=== PATIENT | female | born 1995 | race Caucasian/White ===

== ENCOUNTER 2021-03-09 16:56 | Emergency (ER) | payer OTHER, SELFPAY ==
--- NOTE | 2021-03-09 16:59 | ED.SKABFB ---
HPI - Skin/Abscess/Foreign Bdy General Chief complaint: Skin/Abscess/Foreign Body Stated complaint: bites on arms and legs Time Seen by Provider: 03/09/21 17:00 Source: patient and RN notes reviewed History of Present Illness HPI narrative: Patient is a 26-year-old female who presents the urgent care with complaints of bites on bilateral arms and legs. Patient states that she is rehabbing a house and noticed that she was the only one getting the bites approximately 5 days ago. Patient states that they resolved quickly and she has had pest control to the home to spray. States that they did not find any bedbugs. No other acute complaints. No acute distress noted. Patient read the plan of care. Some parts of this dictation were generated by voice recognition software and may contain typographical and/or grammatical inaccuracies. Related Data Allergies Allergy/AdvReac Type Severity Reaction Status Date / Time No Known Allergies Allergy Verified 03/09/21 17:13 Review of Systems Review of Systems: CONSTITUTIONAL: Denies fever, chills, or sweats. EYES: Denies visual changes, redness, or discharge. ENT: Denies rhinorrhea, congestion, sore throat, or otalgia. CARDIOVASCULAR: Denies chest pain, palpitations, or edema. RESPIRATORY: Denies cough or dyspnea. GASTROINTESTINAL: Denies abdominal pain, nausea, vomiting, or diarrhea. GENITOURINARY: Denies dysuria or hematuria. SKIN: Reports of bug bites to bilateral arms MUSCULOSKELETAL: Denies back pain, joint pain, or myalgia. NEUROLOGIC: Denies headache, numbness, or weakness. All other systems reviewed are negative, except as documented in HPI. PMFSH Comments At the time of my signature, I reviewed and agree with the nursing past medical, surgical, social, and family history. There is no relevant family history pertinent to the patient complaint. Exam Narrative: GENERAL: This is a well-nourished, well-developed patient, in no apparent distress. HEAD: normocephalic, atraumatic. EYES: PERRL. Sclera clear/white. Vision is grossly intact. EARS: External ears normal NOSE: External nose normal with no obvious nasal discharge, nares without redness, no rhinorrhea. THROAT: Mucous membranes moist NECK: Neck supple, non-tender without lymphadenopathy, masses or thyromegaly. CARDIOVASCULAR: Regular rate and rhythm without murmurs, gallops, or rubs. RESPIRATORY: Clear to auscultation. Breath sounds equal bilaterally. No wheezes, rales, or rhonchi. SKIN: Very faint pruritic papular regions to the bilateral forearms; warm, intact with no suspicious lesions or rash, good texture and turgor. NEURO: awake, alert, and oriented to person, place and time. There were no obvious focal neurologic abnormalities. EXTREMITIES: No clubbing, cyanosis, or edema. Course Vital Signs Vital signs: Vital Signs Temperature 98.0 F 03/09/21 17:00 Pulse Rate 92 03/09/21 17:00 Respiratory Rate 20 03/09/21 17:00 Blood Pressure 124/69 03/09/21 17:00 Pulse Oximetry 100 03/09/21 17:00 Temperature 98.0 F 03/09/21 17:00 Pulse Rate 92 03/09/21 17:00 Respiratory Rate 20 03/09/21 17:00 Blood Pressure 124/69 03/09/21 17:00 Pulse Oximetry 100 03/09/21 17:00 Reviewed MDM - Skin/Abscess/Foreign Bdy MDM Narrative Medical decision making narrative: Advised the patient to continue using Benadryl as needed for itch. Continue the pest control as directed from the company. May also try using [id number] bug bombs. Use the prescription cream to the affected areas. Follow-up with your PCP within 2 to 5 days or for worsening symptoms or failure to improve. Differential Diagnosis Differential diagnosis: Likely urticaria, herpes zoster, allergic reaction to drug, cellulitis, impetigo and contact dermatitis Critical Care Time Critical Care Time Critical Care Time: No Discharge Plan Discharge Clinical Impression: Insect bites Qualifiers: Encounter type: initial encounter Site of insect bi
[2021-03-09 17:00] VITALS: BP 124/69; PULSE 92; RESP 20; TEMP 36.7; O2SAT 100
== END 2021-03-09 17:15 | disposition home or self-care (01) ==
PROVIDERS: Emergency Provider Nurse Practitioner Family
DX: S50.862A Insect bite (nonvenomous) of left forearm, initial encounter (principal); S50.861A Insect bite (nonvenomous) of right forearm, initial encounter; W57.XXXA Bitten or stung by nonvenomous insect and other nonvenomous arthropods, initial encounter
CPT/HCPCS: 99213; G0463

== ENCOUNTER 2021-06-11 14:58 | Emergency (ER) | payer OTHER, SELFPAY ==
[2021-06-11 15:08] VITALS: BP 137/76; PULSE 95; RESP 16; TEMP 37.1; O2SAT 98
--- NOTE | 2021-06-11 16:00 | ED.URI ---
HPI - URI/Sore Throat General Chief Complaint: Upper Respiratory Infection Stated Complaint: sore throat,runny nose Time Seen by Provider: 06/11/21 15:41 Source: patient and RN notes reviewed Mode of arrival: ambulatory Limitations: no limitations History of Present Illness HPI Narrative: Patient presents today with a 10-day history of sore throat, rhinorrhea, congestion, occasional cough, fatigue.Currently rates her sore throat 4/10 and has tried no [id number] treatment prior to arrival. Currently 17 weeks . She had a negative COVID-19 test Today. MD elicited complaint: sore throat, rhinorrhea and nasal congestion Related Data Home Medications Medication Instructions Recorded Confirmed levothyroxine 75 mcg PO DAILY 06/11/21 06/11/21 [id number] tablet PO 06/11/21 [] sertraline 50 mg PO DAILY 06/11/21 06/11/21 Allergies Allergy/AdvReac Type Severity Reaction Status Date / Time Penicillins Allergy Unknown Verified 06/11/21 16:09 Review of Systems Review of Systems: CONSTITUTIONAL: Denies body aches, fever, chills, or sweats. EYES: Denies visual changes, redness, or discharge. ENT: Denies otalgia. +Rhinorrhea, congestion, sore throat CARDIOVASCULAR: Denies chest pain, palpitations, or edema. RESPIRATORY: Denies dyspnea.+Occasional cough GASTROINTESTINAL: Denies abdominal pain, nausea, vomiting, or diarrhea. GENITOURINARY: Denies dysuria or hematuria. SKIN: Denies rash, itching, or wounds. MUSCULOSKELETAL: Denies back pain, joint pain, or myalgia. NEUROLOGIC: Denies headache, numbness, tingling, or weakness. PSYCH: Denies depression or anxiety. [facility] Past Medical History Medical History (Updated 06/11/21 @ 16:07 by Ericka Shankar, HELICOPTER MECHANIC, ) Hypothyroidism OCD (obsessive compulsive disorder) Comments At time of signature, I have reviewed and agree with nursing past medical, surgical, social and family history unless otherwise noted. Please see nursing chart for further information. There is no relevant family history pertinent to the presenting complaint Exam Narrative: GENERAL: Well-appearing, well-nourished, and in no acute distress. HEAD: Normocephalic, atraumatic. EYES: EOMI. No redness or drainage. Conjunctivae normal. ENT: Mucous membranes pink and moist. Nares clear. No rhinorrhea. TMs normal bilaterally. Throat normal. Uvula midline. NECK: Normal AROM. Supple. No lymphadenopathy. CHEST: No respiratory distress. Clear to auscultation. HEART: Regular rate and rhythm. No murmur appreciated. Normal peripheral pulses. EXTREMITIES: Normal range of motion. No edema. SKIN: Warm, dry, no rash. Capillary refill normal. Normal skin turgor. NEURO: No focal deficits. Alert and oriented x3. Gait steady. PSYCH: Normal affect. No signs of depression or anxiety. Course Vital Signs Vital signs: Vital Signs Temperature 98.7 F 06/11/21 15:08 Pulse Rate 95 06/11/21 15:08 Respiratory Rate 16 06/11/21 15:08 Blood Pressure 137/76 06/11/21 15:08 Pulse Oximetry 98 06/11/21 15:08 Temperature 98.7 F 06/11/21 15:08 Pulse Rate 95 06/11/21 15:08 Respiratory Rate 16 06/11/21 15:08 Blood Pressure 137/76 06/11/21 15:08 Pulse Oximetry 98 06/11/21 15:08 Reviewed. Pt has been instructed to follow up with her PCP regarding her elevated blood pressure today. MDM - URI/Sore Throat Differential Diagnosis Differential diagnosis: Likely upper respiratory infection, sinusitis, viral infection, pharyngitis and other (Strep throat) Lab Data Attestation: I reviewed the patient's lab results. Labs: Strep Screen Presumptive Negative *(Reference Range: Negative)* Critical Care Time Critical Care Time Critical Care Time: No Discharge Plan Discharge Clinical Impression: Sinusitis Qualifiers: Sinusitis location: unspecified location Chronicity: acute Recurrence: non-recurrent Qualif
== END 2021-06-11 16:15 | disposition home or self-care (01) ==
PROVIDERS: Emergency Provider Nurse Practitioner
DX: J01.90 Acute sinusitis, unspecified (principal); E03.9 Hypothyroidism, unspecified; F42.9 Obsessive-compulsive disorder, unspecified
CPT/HCPCS: 87081; 87880; 99213; G0463

== ENCOUNTER 2021-10-04 09:47 | Outpatient (RCR) | payer OTHER, SELFPAY ==
[2021-10-04 10:45] VITALS: BP 123/82; PULSE 69
== END 2021-12-23 09:30 | disposition home or self-care (01) ==
LOC: ANHOBOP 09:47
PROVIDERS: Visit Provider Obstetrics & Gynecology Gynecology
DX: O99.891 Other specified diseases and conditions complicating pregnancy (principal); W19.XXXA Unspecified fall, initial encounter; Z3A.33 33 weeks gestation of pregnancy
CPT/HCPCS: 59025

== ENCOUNTER 2021-10-12 11:02 | Outpatient (CLI) | payer OTHER, SELFPAY ==
[2021-10-12 11:37] VITALS: BP 117/75; PULSE 85
[2021-10-12 11:58] VITALS: BP 117/75; PULSE 87
== END 2021-10-12 12:10 | disposition home or self-care (01) ==
LOC: ANHOBOP 11:07 → ANHOBPP 10-17 06:15
PROVIDERS: Visit Provider Obstetrics & Gynecology Gynecology
DX: O41.8X90 Other specified disorders of amniotic fluid and membranes, unspecified trimester, not applicable or unspecified (principal); Z3A.00 Weeks of gestation of pregnancy not specified
CPT/HCPCS: 59025; 84112; 99199

== ENCOUNTER 2021-10-22 11:02 | Outpatient (CLI) | payer OTHER, SELFPAY ==
[2021-10-22] VITALS (8 sets, daily range): BP systolic 114–121; BP diastolic 71–80; PULSE 73–87; RESP 18; TEMP 36.8; BMI 33.3
--- NOTE | 2021-10-22 11:02 | PC.NURSE ---
Dr. Hopson was informed of pt's symptoms after the pt called in with c/o intermittent headache x's 4 days with increased swelling in feet. Orders for labs and HIP evaluation received.
[2021-10-22 11:56] LABS: Basophils Percent Auto 0.3 % (0.2-1.2); Eosinophils Absolute Auto 0.3 K/mm3 (0-0.3); Eosinophils Percent Auto 2.5 % (0-4.4); Hematocrit 33.3 % (37.0-47.0); Hemoglobin 11.4 g/dL (12.0-15.0); Immature Granulocyte Absolute 0.05 K/mm3 (0.00-0.031); Immature Granulocyte Percent A 0.4 % (0-0.5); Lymphocytes Absolute Auto 1.45 K/mm3 (0.9-3.2); Mean Corpuscular HGB Conc 34.2 g/dl (32-36); Mean Corpuscular Hemoglobin 31.8 pg (26-34); Mean Platelet Volume 9.9 fl (7.4-10.4); Monocytes Absolute Auto 0.7 K/mm3 (0.1-0.6); Monocytes Percent Auto 6.1 % (2.6-8.5); Neutrophils Absolute Auto 9.5 K/mm3 (1.3-6.7); Neutrophils Percent Auto 78.7 % (45.5-73.1); Platelet Count Result 221 k/mm3 (150-375); Red Blood Count 3.58 M/mm3 (4.2-5.4); Red Cell Distribution Width 14.2 % (11.5-14.5)
[2021-10-22 12:08] LABS: Alanine Aminotransferase 13 U/L (6-35); Albumin Level 3.2 g/dL (3.5-5.1); Alkaline Phosphatase 145 U/L (38-126); Anion Gap 5 mmol/L (8-16); Aspartate Amino Transferase 23 U/L (14-36); Bilirubin,Total 0.1 mg/dL (0.2-1.3); Blood Urea Nitrogen 6 mg/dL (7-17); Calcium 8.6 mg/dL (8.4-10.2); Carbon Dioxide 23 mmol/L (22-30); Chloride 105 mmol/L (98-107); Estimated CRCL calculation 120 ml/min; Estimated Glomerular Filt Rate > 60; Glucose 74 mg/dL (65-110); Potassium 3.8 mmol/L (3.4-5.0); Sodium 133 mmol/L (137-145); Uric Acid 4.9 mg/dL (2.5-7.5)
[2021-10-22 12:14] LABS: Creatinine Urine 95.4 mg/dL; Total Protein Urine Random 10 mg/dL
[2021-10-22 12:17] LABS: Appearance Urine Slightly Cloudy (Clear); Bilirubin Urine Negative (Negative); Color Urine Yellow (Yellow); Glucose Urine UA Negative (Negative); Ketones Urine Negative (Negative); Leukocyte Esterase Ur Trace LEU/UL (Negative); Nitrate Urine Negative (Negative); Protein Urine Negative (Negative); Specific Grav Ur 1.015 (1.001-1.035); Urobilinogen Urine 0.2 mg/dL (<2.0)
[2021-10-22 12:19] LABS: Add Urine Microscopic? YES; Blood Urine Trace-Intact (Negative)
[2021-10-22 12:21] LABS: Mucus Urine Rare /lpf; Squamous Epithelial Cell Urine Few /hpf (Few); WBC Urine 0-3 /hpf
--- NOTE | 2021-10-22 12:35 | PC.NURSE ---
Dr. Hopson informed of labs, BP's, and reactive NST. Orders for discharge received.
--- NOTE | 2021-10-22 15:43 | PM.OBTRLD ---
OB - Triage/Final Diagnosis Visit Information Comments/Additional reasons for admission: I have assessed the risk for this patient, Fabi Jones, and determined that she would benefit from observation care. Evaluation Laboratory results: Laboratory Tests 10/22/21 10/22/21 10/22/21 11:44 11:44 11:44 WBC 12.0 H RBC 3.58 L Hgb 11.4 L Hct 33.3 L MCV 93.0 MCH 31.8 MCHC 34.2 RDW 14.2 Plt Count 221 MPV 9.9 Immature Gran % (Auto) 0.4 Neut % (Auto) 78.7 H Lymph % (Auto) 12.0 L [place] % (Auto) 6.1 Eos % (Auto) 2.5 Baso % (Auto) 0.3 Lymph # (Auto) 1.45 [place] # (Auto) 0.7 H Eos # (Auto) 0.3 Baso # (Auto) 0.0 Abs Immat Gran (auto) 0.05 H Absolute Neuts (auto) 9.5 H Absolute Nucleated RBC 0.0 Nucleated RBC % 0.0 Sodium 133 L Potassium 3.8 Chloride 105 Carbon Dioxide 23 Anion Gap 5 L BUN 6 L Creatinine 0.60 L Estim Creat Clear Calc 120 Estimated GFR > 60 Glucose 74 Uric Acid 4.9 Calcium 8.6 Total Bilirubin 0.1 L AST 23 ALT 13 Alkaline Phosphatase 145 H Total Protein 7.0 Albumin 3.2 L Urine Color Urine Appearance Urine pH Ur Specific [place] Urine Protein Urine Glucose (UA) Urine Ketones Ur Blood (Man) Urine Nitrate Urine Bilirubin Urine Urobilinogen Leukocyte Esterase Rfl Urine RBC Urine WBC Ur Squamous Epith Cells Urine Mucus U Random Total Protein 10 Urine Creatinine 95.4 Protein/Creat Ratio 2 0.10 10/22/21 11:44 WBC RBC Hgb Hct MCV MCH MCHC RDW Plt Count MPV Immature Gran % (Auto) Neut % (Auto) Lymph % (Auto) [place] % (Auto) Eos % (Auto) Baso % (Auto) Lymph # (Auto) [place] # (Auto) Eos # (Auto) Baso # (Auto) Abs Immat Gran (auto) Absolute Neuts (auto) Absolute Nucleated RBC Nucleated RBC % Sodium Potassium Chloride Carbon Dioxide Anion Gap BUN Creatinine Estim Creat Clear Calc Estimated GFR Glucose Uric Acid Calcium Total Bilirubin AST ALT Alkaline Phosphatase Total Protein Albumin Urine Color Yellow Urine Appearance Slightly cloudy Urine pH 7.0 Ur Specific [place] 1.015 Urine Protein Negative Urine Glucose (UA) Negative Urine Ketones Negative Ur Blood (Man) Trace-intact Urine Nitrate Negative Urine Bilirubin Negative Urine Urobilinogen 0.2 Leukocyte Esterase Rfl Trace H Urine RBC 6-10 H Urine WBC 0-3 Ur Squamous Epith Cells Few Urine Mucus Rare U Random Total Protein Urine Creatinine Protein/Creat Ratio 2 Vital signs: Vital Signs - 24 hr 10/22/21 11:35 10/22/21 11:36 10/22/21 11:46 Temperature 98.3 F Pulse Rate 87 87 77 Respiratory Rate 18 Blood Pressure 115/80 121/71 Blood Pressure [Left Arm] 115/80 10/22/21 11:51 10/22/21 11:52 10/22/21 12:01 Temperature Pulse Rate 77 85 73 Respiratory Rate Blood Pressure 119/80 114/76 Blood Pressure [Left Arm] 121/71 10/22/21 12:16 10/22/21 12:31 Temperature Pulse Rate 80 76 Respiratory Rate Blood Pressure 117/77 114/76 Blood Pressure [Left Arm] Final Diagnosis (1) Swelling of ankle: Code(s): M25.473 - Effusion, unspecified ankle Status: Acute
== END 2021-10-22 12:45 | disposition home or self-care (01) ==
LOC: ANHOBOP 11:09 → ANHOBPP 10-30 07:31
PROVIDERS: Obstetrics & Gynecology; Visit Provider Obstetrics & Gynecology Gynecology
DX: R51.9 Headache, unspecified (principal); O13.9 Gestational [pregnancy-induced] hypertension without significant proteinuria, unspecified trimester; Z3A.00 Weeks of gestation of pregnancy not specified
CPT/HCPCS: 36415; 59025; 80053; 81001; 82570; 84156; 84550; 85025; 99199

== ENCOUNTER 2021-11-07 12:23 | Outpatient (CLI) | payer OTHER, SELFPAY ==
[2021-11-07 12:41] VITALS: TEMP 36.6
[2021-11-07 13:07] VITALS: BP 114/77; PULSE 100
--- NOTE | 2021-11-07 13:07 | PC.NURSE ---
Dr. Vargas returned page and informed of pt's arrival with c/o wet spot in underwear around 1100 this morning. Pt states she did just finish her vaginal treatment for BV last night. MD informed ROM plus was negative and NST is reactive. OK to discharge to home.
== END 2021-11-07 13:12 | disposition home or self-care (01) ==
LOC: ANHOBOP 13:20
PROVIDERS: Visit Provider Obstetrics & Gynecology Gynecology
DX: O42.90 Premature rupture of membranes, unspecified as to length of time between rupture and onset of labor, unspecified weeks of gestation (principal); Z3A.00 Weeks of gestation of pregnancy not specified
CPT/HCPCS: 59025; 84112

== ENCOUNTER 2021-11-13 16:58 | Inpatient (IN) | payer OTHER, SELFPAY ==
[2021-11-13] VITALS (35 sets, daily range): BP systolic 108–148; BP diastolic 58–109; PULSE 69–107; TEMP 36.7–36.8; O2SAT 97–100; BMI 33.0
--- NOTE | 2021-11-13 17:22 | LDADM ---
This patient, Fabi Jones, was admitted to Labor/Delivery/Recovery 109 on 11/13/21 at 16:58. Plans for labor, pain management and were discussed with patient. Patient/family oriented to hospital policies and general routines including ID bracelet, bed and alarms, visiting hours, pain management, procedures, bathroom and other care routines, personal items, smoking policy, room service/diet and guest tray routines, security routines, and visiting hours. Patient/Family are encouraged to report perceived risks to care and to ask questions if they do not understand what they are told or what they should do. See OBIX for further documentation.
[2021-11-13 17:36] LABS: Basophils Absolute Auto 0.1 K/mm3 (0.0-0.1); Basophils Percent Auto 0.4 % (0.2-1.2); Eosinophils Absolute Auto 0.2 K/mm3 (0-0.3); Hematocrit 36.5 % (37.0-47.0); Immature Granulocyte Absolute 0.04 K/mm3 (0.00-0.031); Immature Granulocyte Percent A 0.3 % (0-0.5); Lymphocytes Absolute Auto 1.65 K/mm3 (0.9-3.2); Mean Corpuscular HGB Conc 32.9 g/dl (32-36); Mean Corpuscular Hemoglobin 30.9 pg (26-34); Mean Corpuscular Volume 94.1 fl (80-100); Monocytes Absolute Auto 0.6 K/mm3 (0.1-0.6); Neutrophils Absolute Auto 9.2 K/mm3 (1.3-6.7); Neutrophils Percent Auto 78.3 % (45.5-73.1); Platelet Count Result 238 k/mm3 (150-375); Red Blood Count 3.88 M/mm3 (4.2-5.4); Red Cell Distribution Width 14.3 % (11.5-14.5); White Blood Count 11.8 K/mm3 (4.5-10.0)
--- NOTE | 2021-11-13 17:37 | WPDANESEPP ---
Anes - Eval Pre Procedure Date/Time: 11/13/21 17:37 Pre Op Diagnosis: IOL Patient Data Age: 26 Gender: F Height: 1.57 m Weight: 82 kg Last Vital Signs Pulse 78 11/13/21 17:31 BP 118/75 11/13/21 17:31 O2 Del Method Room Air 11/13/21 17:21 Allergies Allergy/AdvReac Type Severity Reaction Status Date / Time Penicillins Allergy Hives Verified 10/23/21 15:26 Home Medications Medication Instructions Recorded Confirmed Type levothyroxine 75 mcg capsule 75 mcg PO DAILY 06/11/21 11/13/21 History [id number] 1 mg 1 tablet PO DAILY 06/11/21 11/13/21 History tablet sertraline 50 mg tablet 50 mg PO DAILY 06/11/21 11/13/21 History ergocalciferol (vitamin D2) 1,250 50,000 unit PO WEEKLY 10/04/21 11/13/21 History mcg (50,000 unit) capsule (Vitamin D2) ferrous sulfate 325 mg (65 mg 325 mg PO DAILY 10/04/21 11/13/21 History iron) tablet Laboratory Tests 11/13/21 11/13/21 17:18 17:18 WBC Pending RBC Pending Hgb Pending Hct Pending MCV Pending MCH Pending MCHC Pending RDW Pending Plt Count Pending MPV Pending Immature Gran % (Auto) Pending Neut % (Auto) Pending Lymph % (Auto) Pending [place] % (Auto) Pending Eos % (Auto) Pending Baso % (Auto) Pending Lymph # (Auto) Pending [place] # (Auto) Pending Eos # (Auto) Pending Baso # (Auto) Pending Abs Immat Gran (auto) Pending Absolute Neuts (auto) Pending Absolute Nucleated RBC Pending Nucleated RBC % Pending RPR Pending Patient hx anesthesia problems: none Family hx anesthesia problems: none Results Review: All pre-operative results and documents have been reviewed as part of the pre-operative evaluation. [facility] Past Medical History Medical History Hypothyroidism OCD (obsessive compulsive disorder) Family History Family History Father Skin cancer Hypothyroidism Hypertension Grandparent Leukemia Grandparent Liver cancer Grandparent Hypothyroidism Social History Social History Smoking status: Never smoker Substance use: never Spiritual care concerns: No Exam Day of Procedure 11/13/21 17:37
[2021-11-13] MEDS: DINOPROSTONE 10 MG VAG INSERT VAGINAL (17:53)
[2021-11-13] MEDS: fentaNYL CITRATE INJ (*CRX) 100 MCG/2 ML VIAL 50 MCG IV PUSH (21:23)
[2021-11-13] MEDS: LACTATED RINGERS 1,000 ML 125 ML IV CONT (23:23)
[2021-11-14] VITALS (18 sets, daily range): BP systolic 80–153; BP diastolic 35–103; PULSE 60–87; RESP 16–18; TEMP 36.6–37.3; O2SAT 97–99
[2021-11-14] MEDS: OXYTOCIN 30 UNITS/NS 500 ML 30 UNITS/500 ML BAG 999 UNITS IV CONT (00:01)
--- NOTE | 2021-11-14 00:11 | WPDOBADMIT ---
Obstetrics - Admit Note Admission Note: record reviewed. No pertinent additions to the history and/or any subsequent changes in the physical findings that are not consistent with the expected course of the were found. Additions to the history and/or subsequent changes in the physical findings follow. None.
--- NOTE | 2021-11-14 00:11 | WPDHPUPDATE1 ---
History and Physical Update Update Date/Time: 11/14/21 00:11 History and Physical has been reviewed, including an updated exam of the patient. There are NO changes in the patient's condition. Risks, benefits, and alternatives have been discussed and questions answered. Patient agrees to proceed with procedure.
--- NOTE | 2021-11-14 00:12 | P.PCNOB_ITS ---
OB - Delivery Note Procedure Induction method: Per Cervidil Protocol Delivery monitor: External FHT and External Uterine Route of delivery: Episiotomy description: None Laceration Description: None Specimen: No Quantitative Blood Loss (ml): 500 Anesthesia type: Epidural Disposition: Floor Complications: precipitous delivery Narrative: Patient was set up for epidural and after his current health the need to push. Baby was found to be at the antritis and delivered precipitously. After delivery of the baby and placenta the uterus was well contracted and there were no lacerations or tears. Baby was sent to the nursery but was doing well post delivery. Patient was doing well post delivery. [place] Baby Date of : 11/13/21 Weeks of gestation at delivery: 39 Infant gender: Female Weight (pounds): 5 Weight (ounces): 3 presentation: vertex
[2021-11-14] MEDS: OXYTOCIN 30 UNITS/NS 500 ML 30 UNITS/500 ML BAG 125 UNITS IV CONT (00:41)
[2021-11-14] MEDS: WITCH HAZEL 40 PADS 1 PAD TOPICAL (03:03)
[2021-11-14] MEDS: BENZOCAINE 20% AER SPR (*SP) 56 GM CAN 1 SPRAY TOPICAL (03:04)
--- NOTE | 2021-11-14 03:10 | OBPPTRN ---
Patient transferred to post room #285 via w/c. Support person present, Evin. Oriented to unit, room, information board, rooming in, admission packet and security measures. Patient verbalizes understanding.
[2021-11-14] MEDS: IBUPROFEN 600 MG TABLET PO ×3 (03:51→21:56)
[2021-11-14] MEDS: LANOLIN (LANSINOH) 7.5 GM CREAM 1 APPLIC TOPICAL (03:52)
--- NOTE | 2021-11-14 07:45 | PM.OBPNVD ---
OB - PN: Subj Subjective Date/time seen: 11/14/21 07:45 Patient comments: no complaints and pain well controlled baby status: doing well OB - PN: Obj Data Labs CBC & Chem 7: 11/13/21 17:18 Labs: Laboratory Results - last 24 hr 11/13/21 11/13/21 17:18 17:18 WBC 11.8 H RBC 3.88 L Hgb 12.0 Hct 36.5 L MCV 94.1 MCH 30.9 MCHC 32.9 RDW 14.3 Plt Count 238 MPV 10.0 Immature Gran % (Auto) 0.3 Neut % (Auto) 78.3 H Lymph % (Auto) 14.0 L [place] % (Auto) 5.0 Eos % (Auto) 2.0 Baso % (Auto) 0.4 Lymph # (Auto) 1.65 [place] # (Auto) 0.6 Eos # (Auto) 0.2 Baso # (Auto) 0.1 Abs Immat Gran (auto) 0.04 H Absolute Neuts (auto) 9.2 H Absolute Nucleated RBC 0.0 Nucleated RBC % 0.0 Blood Type A Positive Antibody Screen Negative OB - PN A/P Plan day: 1 Plan: routine care Time Spent With Patient Time: Total time spent is greater than 50% in coordination of care (as documented) at patient's floor/unit and/or counseling patient: Exam : Bimanual exam- vagina & uterus: other (Uterus firm, nt @U)
[2021-11-14 08:38] LABS: Rapid Plasma Reagin Non-Reactive (NonReactive)
--- NOTE | 2021-11-14 10:22 | WPDANLDPN2 ---
Anes-Prog Note L&D Date/Time: 11/14/21 10:22 Comfortable throughout: labor and delivery Neuraxial method: epidural Epidural/Spinal procedure site: clean & non-tender Neuro status: Neuro function grossly intact. Cardiovascular status: normal Respiratory status: normal Airway patency: baseline Mental status: baseline Post-Op hydration status: normal Vital Signs: Last Vital Signs Temp 37.3 C 11/14/21 08:00 Pulse 60 11/14/21 08:00 Resp 16 11/14/21 08:00 BP 127/84 11/14/21 08:00 Pulse Ox 98 11/14/21 08:00 O2 Del Method Room Air 11/14/21 03:20 Pain score (VAS): 06/26 I/O: Intake & Output 11/13/21 11/14/21 11/14/21 23:59 07:59 15:59 Intake Total 1500 Output Total 10 Balance 1490 Post-procedural complaints: none Patient feedback: Patient satisfied with anesthetic care.
--- NOTE | 2021-11-14 14:16 | PC.NURSE ---
[id number] Mother demonstrates she is able to independently latch with appropriate positioning/alignment to the right breast using cross cradle positioning. Optimal latch with effective suck/swallow ratios visualized. She denies any nipple discomfort and is responsively . Infant is currently meeting outcomes for weight, output, jaundice and feeding frequencies of 8-12 times in 24 hours. Mother declines any additional assistance/education at this time. Mother is encouraged to call for assistance if her doesn?t latch or there is discomfort with latching. Mother voiced understanding of information shared and mom and baby guide reviewed for additional resource information . Reported to the primary RN.
[2021-11-15 04:54] LABS: Hematocrit 33.6 % (37.0-47.0); Hemoglobin 11.1 g/dL (12.0-15.0)
--- NOTE | 2021-11-15 07:27 | PM.OBPNVD ---
OB - PN: Subj Subjective Date/time seen: 11/15/21 07:27 Patient comments: no complaints and pain well controlled baby status: doing well and nursing well OB - PN: Obj Data Labs CBC & Chem 7: 11/15/21 04:20 Labs: Laboratory Results - last 24 hr 11/13/21 11/15/21 17:18 04:20 Hgb 11.1 L Hct 33.6 L RPR Non-reactive OB - PN A/P Plan day: 2 Plan: routine care, discharge home, follow up 6 weeks and other (plans micronor) Time Spent With Patient Time: Total time spent is greater than 50% in coordination of care (as documented) at patient's floor/unit and/or counseling patient: Exam : Bimanual exam- vagina & uterus: other (Uterus firm, nt @U)
--- NOTE | 2021-11-15 07:28 | PM.OBDSVD ---
DS: Admitting Diagnosis Discharge Date 11/15/21 Admitting Diagnosis MIL at 39 wks DS: Discharge Diagnosis Discharge Diagnosis (1) (normal spontaneous vaginal delivery): Code(s): O80 - Encounter for full-term uncomplicated delivery Status: Acute OB - DS: Summary OB Procedures : NST and Ultrasound OB Procedures Intrapartum: Spontaneous Vag Delivery (manager delivery) OB Procedures: : None Peripartum Data Delivery Method: Natural Vaginal Laceration Description: None complications: none Status at Discharge Functional status at discharge: independent ambulation Overall status at discharge: patient is progressing back to baseline Time Spent with Patient Time attestation: Total time spent providing and/or coordinating discharge services: DS: Data Data Completed and Pending Labs on day of discharge: Labs from last 24 hours 11/15/21 11/13/21 04:20 17:18 Hgb 11.1 L Hct 33.6 L RPR Non-reactive Discharge Plan Discharge Attending physician on discharge: Елена Vargas Discharging Clinician: Елена Vargas Anticipated Discharge Date/Time: 11/15/21 07:30 Patient Disposition: Home, Self-Care Activity: may shower and pelvic rest Diet: regular Patient Instructions: Antibiotic Form Stand Alone Forms: General Discharge Information Follow-up/Referrals: Елена Vargas MD [Physician] - Discharge Medications: Continued sertraline 50 mg tablet 50 mg PO DAILY 1 mg Tablet 1 tablet PO DAILY levothyroxine 75 mcg Capsule 75 mcg PO DAILY ferrous sulfate 325 mg (65 mg iron) Tablet 325 mg PO DAILY ergocalciferol (vitamin D2) [Vitamin D2] 1,250 mcg (50,000 unit) Capsule 50,000 unit PO WEEKLY Rx Instructions: Takes every Saturday Date of admission: 11/13/21 16:58 Primary Care Provider: PHYSICIAN,AUTOMOTIVE BRAKE TECHNICIAN Admitting Provider: Елена Vargas Attending physician on admission: Елена Vargas Condition: Stable
[2021-11-15 08:00] VITALS: PULSE 67; RESP 16; O2SAT 98
[2021-11-15 08:15] VITALS: BP 118/83; PULSE 67; RESP 16; TEMP 36.9; O2SAT 98
[2021-11-15] MEDS: IBUPROFEN 600 MG TABLET PO ×2 (08:58→14:54)
[2021-11-15] MEDS: MULTIVIT/MIN/PREN/FOL AC/IRON TABLET 1 TAB PO (09:01)
--- NOTE | 2021-11-15 13:42 | PC.NURSE ---
[id number] Consulted with patient to assess needs related to . Mother led conversation with her experience with feeding baby so far. Mother works well with her infant with encouragement. Reviewed working with , breast, nipples and how to protect the nipples with an optimal deep latch, good positioning, and good hand washing. Encouraged understanding the benefits of skin to skin, responding to feeding cues, frequencies of feeding 8-12 times in 24 hours (approximately 2-3 hours), duration of feedings, milk production, intake/output feeding sheet and signs of adequate intake encouraging swallowing at the breast. Reviewed positioning and alignment, supporting breast, off-centered (asymmetrical latch) and leading with the chin with big open wide gape. Infant latched optimally to the left, then the right breast in cross cradle position independently by mother. Education given to mother of how to visualize suck/swallow ratios and drinking at the breast. Infant was able to maintain latch without discomfort to mother. Nipple care reviewed with optimal latch and good positioning, comfort, healing with warm, wet washcloth to rinse breast, then leave open to air-dry, colostrum may be left on nipples to dry but have clean hands when touching the nipple/breast as needed. Mother led the conversation with her experience and plan to feed her infant so far and her ability to independently latch optimally without discomfort. Reminded parents to use good handwashing technique to prevent infection. Mother is feeding appropriately for growth of infant and understands stimulating to eat if needed. Infant has had appropriate feedings in the last 24 hours meets the outcomes for weight, output and jaundice at this time. Mother states she is confident to continue effectively her at home or when to call for assistance and denies any additional assistance or education at this time. Reinforced understanding of milk production, transition of milk, signs of adequate intake, prevention/relief of engorgement, responsive after visualizing feeding cues, the different methods of stimulating infant to breastfeed 2-3 hours after the start of the last feeding, community resources, medication information reviewed per [employer] and when to call a provider using the resource of the mom and baby guide/[facility] website. Resources used to facilitate learning were used from the mom and baby guide. Mother voiced understanding of the education shared. Reported to the primary RN.
--- NOTE | 2021-11-16 13:20 | PC.NURSE ---
[id number] Mother led the conversation with her experience and plan to feed her so far and her ability to continue with the plan of attempting to breastfeed/pump and feed breastmilk. Her milk is in and mother is able to pump 3-4 oz. Reminded parents to use good handwashing technique to prevent infection. Mother is feeding appropriately for growth of infant and understands stimulating infant to eat if needed. Infant has had appropriate feedings in the last 24 hours meets the outcomes for weight, output and jaundice at this time. Mother states she is confident to continue attempting to breastfeed/pumping and feeding her infant at home or when to call for assistance and denies any additional assistance or education at this time. Reinforced understanding of milk production, transition of milk, signs of adequate intake, prevention/relief of engorgement, responsive after visualizing feeding cues, the different methods of stimulating infant to breastfeed 2-3 hours after the start of the last feeding, community resources, medication information reviewed per [employer] and when to call a provider using the resource of the mom and baby guide/[facility] website. Mother voiced understanding of the education shared. Reported to the primary RN.
[2021-11-17 11:05] VITALS: BP 126/85; PULSE 85; RESP 20; TEMP 36.8; O2SAT 97
== END 2021-11-15 17:29 | disposition home or self-care (01) | DRG 560 ==
LOC: ANHLDR 17:02 → ANHOB2 11-14 04:43
PROVIDERS: Obstetrics & Gynecology; Admitting Provider Obstetrics & Gynecology Gynecology; Visit Provider Obstetrics & Gynecology Gynecology
DX: O62.3 Precipitate labor (principal); O76 Abnormality in fetal heart rate and rhythm complicating labor and delivery; Z3A.39 39 weeks gestation of pregnancy; Z37.0 Single live birth
CPT/HCPCS: 36415; 85014; 85018; 85025; 86592; 86850; 86900; 86901; A9270; J2590; J2795; J3010; J7120

== ENCOUNTER 2021-11-20 11:10 | Outpatient (CLI) | payer OTHER, SELFPAY ==
[2021-11-20 11:27] VITALS: BP 118/85; PULSE 73; RESP 18; O2SAT 100
--- NOTE | 2021-11-20 11:30 | PC.NURSE ---
Pt has complaints of a headache since . Pt delivered on the . Pt has concerns that she has a spinal headache. Pt denies headache worsening with position changes and ibuprofen does help relieve the pain.
--- NOTE | 2021-11-20 11:55 | PC.NURSE ---
1155 Dr. Quinones at the bedside evaluating the pt. [id number] Pt does not need a blood patch per Dr. Quinones.
--- NOTE | 2021-11-20 12:00 | PC.NURSE ---
Leandra GALLEGOS notified of this pt. Aware that anesthesia has seen that pt. Pt okay to discharge. Relaxation tips and nonpharmacological pain management tips to be given to the pt.
== END 2021-11-20 12:08 | disposition home or self-care (01) ==
LOC: ANHOBOP 11:15
PROVIDERS: Visit Provider Obstetrics & Gynecology Gynecology
DX: R51.9 Headache, unspecified (principal); Z53.9 Procedure and treatment not carried out, unspecified reason
CPT/HCPCS: 99199

== ENCOUNTER 2022-03-08 09:01 | Emergency (ER) | payer OTHER, SELFPAY ==
--- NOTE | 2022-03-08 09:06 | ED.URI ---
HPI - URI/Sore Throat General Chief Complaint: Upper Respiratory Infection Stated Complaint: sore throat congestion Time Seen by Provider: 03/08/22 09:02 Source: patient and RN notes reviewed History of Present Illness HPI Narrative: Patient is a 27-year-old female who presents the urgent care with complaints of a sore throat, postnasal drainage and fatigue. Patient states that starting on Saturday and she has a COVID test lined up today at [facility] at 10 AM. Patient states she was exposed however she has tested her daughter at home who was negative. Patient states she has been taking ibuprofen for her discomfort. Denies of any fevers, nausea or vomiting. No other acute complaints. No acute distress noted. Patient aware of the plan of care. Some parts of this dictation were generated by voice recognition software and may contain typographical and/or grammatical inaccuracies. Related Data Home Medications Medication Instructions Recorded Confirmed levothyroxine 75 mcg capsule 75 mcg PO DAILY 06/11/21 03/08/22 sertraline 50 mg tablet 50 mg PO DAILY 06/11/21 03/08/22 Allergies Allergy/AdvReac Type Severity Reaction Status Date / Time Penicillins Allergy Hives Verified 03/08/22 09:23 Review of Systems Review of Systems: CONSTITUTIONAL: Denies fever, chills, or sweats. Reports of fatigue EYES: Denies visual changes, redness, or discharge. ENT: Reports of sinus congestion, postnasal drainage and sore throat CARDIOVASCULAR: Denies chest pain, palpitations, or edema. RESPIRATORY: Denies cough or dyspnea. GASTROINTESTINAL: Denies abdominal pain, nausea, vomiting, or diarrhea. GENITOURINARY: Denies dysuria or hematuria. SKIN: Denies rash or itching. MUSCULOSKELETAL: Denies back pain, joint pain, or myalgia. NEUROLOGIC: Denies headache, numbness, or weakness. All other systems reviewed are negative, except as documented in HPI. [facility] Past Medical History Medical History Hypothyroidism OCD (obsessive compulsive disorder) Family History Family History Father Skin cancer Hypothyroidism Hypertension Grandparent Leukemia Grandparent Liver cancer Grandparent Hypothyroidism Social History Social History Smoking status: Never smoker Substance use: never Spiritual care concerns: No Comments At the time of my signature, I reviewed and agree with the nursing past medical, surgical, social, and family history. There is no relevant family history pertinent to the patient complaint. Exam Narrative: GENERAL: This is a well-nourished, well-developed patient, in no apparent distress. HEAD: normocephalic, atraumatic. Frontal sinus tenderness EYES: PERRL. Sclera clear/white. Vision is grossly intact. EARS: External ears normal, auditory canals clear and without drainage, TMs normal without perforation. Hearing grossly intact. NOSE: External nose normal with no obvious nasal discharge, nares without redness, clear rhinorrhea. THROAT: Mucous membranes moist, posterior pharynx clear. Moderate postnasal drainage NECK: Neck supple, non-tender without lymphadenopathy CARDIOVASCULAR: Regular rate and rhythm without murmurs, gallops, or rubs. RESPIRATORY: Clear to auscultation. Breath sounds equal bilaterally. No wheezes, rales, or rhonchi. SKIN: warm, intact with no suspicious lesions or rash, good texture and turgor. NEURO: awake, alert, and oriented to person, place and time. There were no obvious focal neurologic abnormalities. EXTREMITIES: No clubbing, cyanosis, or edema. Course Course Level of Care: Express Care Visit Vital Signs Vital signs: Vital Signs Temperature 97.7 F 03/08/22 09:07 Pulse Rate 94 03/08/22 09:07 Respiratory Rate 16 03/08/22 09:07 Blood Pressure 116/72 03/08/22 09:07 Pulse Oximetry 98 03/08/22 09:07 Oxygen De
[2022-03-08 09:07] VITALS: BP 116/72; PULSE 94; RESP 16; TEMP 36.5; O2SAT 98
== END 2022-03-08 09:34 | disposition home or self-care (01) ==
PROVIDERS: Emergency Provider Nurse Practitioner Family
DX: J32.9 Chronic sinusitis, unspecified (principal); E03.9 Hypothyroidism, unspecified; F42.9 Obsessive-compulsive disorder, unspecified
CPT/HCPCS: 87081; 87880; 99213; G0463

== ENCOUNTER 2023-09-11 13:28 | Outpatient (CLI) | payer MEDICAID, SELFPAY ==
--- NOTE | ~2023-09-11 | US_ITS ---
EXAMINATION: US OB transvaginal DATE: 09/11/2023 14:00 INDICATION: Evaluate viability TECHNIQUE: Real-time transabdominal and transvaginal obstetric ultrasound. FINDINGS: No prior studies for comparison. The uterus measures 8.5 x 6 x 6.7 cm. There is an intrauterine gestational sac, with pole ident ified. The crown rump length measures 0.3 cm, which correlates with a estimated gestational age of 5 weeks 6 days. No heart motions detected. There is a corpus luteal cyst of the right ovary sheila uring or centimeters. Left ovary is unremarkable. There is free fluid in the pelvis. IMPRESSION: 1. Intrauterine gestational sac containing yolk sac and pole which corresponds to 5 week 6 day gestation. No heart motions detected. Differential diagnosis includes failed and herminia y early IUP. Recommend follow-up with serial quantitative beta-hCG levels and ultrasound as clinicall y warranted. Reviewed, dictated and finalized at location L. IMPRESSION: 1. Intrauterine gestational sac containing yolk sac and pole which corres ponds to 5 week 6 day gestation. No heart motions detected. Differential diagnosis includes failed and early early IUP. Recommend follow-up wi th serial quantitative beta-hCG levels and ultrasound as clinically warranted.
== END 2023-09-11 13:29 ==
LOC: MICIMG 13:30
PROVIDERS: PCP Advanced Practice Midwife; Visit Provider Advanced Practice Midwife
DX: O36.80X0 Pregnancy with inconclusive fetal viability, not applicable or unspecified (principal); Z3A.00 Weeks of gestation of pregnancy not specified
CPT/HCPCS: 76817

== ENCOUNTER 2023-09-18 11:13 | Outpatient (CLI) | payer MEDICAID, SELFPAY ==
--- NOTE | ~2023-09-18 | US_ITS ---
EXAMINATION: US OB transvaginal DATE: 09/18/2023 11:40 INDICATION: . TECHNIQUE: Real-time transabdominal and transvaginal pelvic ultrasound was performed. COMPARISON: Ultrasound 09/11/2023 FINDINGS: TRANSABDOMINAL ULTRASOUND: The uterus measures 10.9 x 6.2 x 7.4 cm. TRANSVAGINAL ULTRASOUND: There is an intrauterine gestational sac. A yolk sac is identified. The fet al crown rump length measures 2 mm, which correlates with an estimated gestational age of 5 weeks and 5 day(s) (+/-) 4 day(s). heart motion is not identified by M-mode Doppler, which may be normal at this size. There is a small subchorionic hematoma.. The right ovary measures 2.9 x 2.7 x 4.1 cm. The left ovary measures 3.2 x 1.2 x 3.0 cm. There is no free fluid in the pelvis. IMPRESSION: 1. Single intrauterine gestation with estimated date of delivery of 05/15/2024. 2. Small subchorionic hematoma. Reviewed, dictated and finalized at location A. IMPRESSION: 1. Single intrauterine gestation with estimated date of delivery of 05/15/2024 . 2. Small subchorionic hematoma.
== END 2023-09-18 11:14 ==
LOC: MICIMG 11:14
PROVIDERS: PCP Advanced Practice Midwife; Visit Provider Obstetrics & Gynecology Gynecology
DX: O36.80X0 Pregnancy with inconclusive fetal viability, not applicable or unspecified (principal); Z3A.00 Weeks of gestation of pregnancy not specified
CPT/HCPCS: 76817

== ENCOUNTER 2023-09-20 02:17 | Day surgery (SDC) | payer MEDICAID, SELFPAY ==
[2023-09-19 10:15] VITALS: BMI 30.7
--- NOTE | 2023-09-19 10:22 | PC.NURSE ---
Report to the Outpatient Waiting Room, entrance under the green pavilion located off [facility], at time __1000 on date __09/20/23 . Planned Procedure Time: ___1200 . Time changes happen often and if your time is changed the preop area will call you the afternoon before. - You and your visitor will be asked to self-screen and do not enter if you have any COVID symptoms. - A mask is optional within the hospital at this time. Patients may have clear liquids (water, carbonated beverages, clear teas, apple juice) until 3 hours prior to surgery (0900 AM) with a maximum of 20 ounces. - No food from midnight until time of surgery - Infants may have breast milk until 4 hours before surgery, infant formula 6 hours prior to surgery. - Children will be allowed to drink immediately following surgery. If applicable, please bring a bottle or sippy cup to assist with drinking. Juice, water, soda, and popsicles are readily available. For infants on formula, please bring formula the day of surgery. Pacifiers are allowed. Take the following medications with a SIP of water the morning of surgery: ____LEVOTHYROXINE DO NOT STOP ANY OF YOUR OTHER PRESCRIPTION MEDICATIONS PRIOR TO SURGERY ?EXCEPT THE FOLLOWING Medications to discontinue per physician NONE Date to take last dose Please no make-up, nail fijian, hairspray, perfume, deodorant, or body powder the day of surgery. No jewelry (including any body piercings) or valuables the day of surgery, leave them at home. Please take a shower or bath the night before, or the morning of, surgery with an antibacterial soap. Wear comfortable, loose fitting clothing. Children are encouraged to wear pajamas. - Jewelry must be removed prior to entering the operating room. Rings and piercings that are not removed may be cut off. - The hospital will not accept responsibility for valuables. - Please leave all valuables, including medications, at home the day of surgery. If you are going home after surgery, a licensed city bus driver must drive you home. - NO public transportation without another adult if you receive anesthesia. - We recommend that an adult stay with you for 24 hours following discharge. - We also recommend that you do not drive, make important decision, drink alcoholic beverages, or take any drugs that were not prescribed by your health care provider for at least 24 hours after your discharge time. For Pediatric surgeries, we recommend two adults accompany the child home. Follow any additional instructions given to you from your surgeon. If you or anyone in your household have experienced Covid symptoms in the past week, please notify your surgeon or the nurse liaison at the phone number below for possible testing. Telephone instructions given to ____PT and asked if any additional questions and then verbalized understanding. Patient advised to call surgeon office or pre surgery nurse liaison [phone] if any additional questions.
[2023-09-20] MEDS: ACETAMINOPHEN 500 MG TABLET 1000 MG PO (11:16)
[2023-09-20] MEDS: LACTATED RINGERS 1,000 ML 30 ML IV CONT (11:30)
--- NOTE | 2023-09-20 11:30 | WPDANESEPPF ---
Anes - Initial Pre Proc Eval Procedure: Operation Date: 09/20/23 12:00 Proposed Procedures p Suction Dilation and Curettage - Елена Vargas MD Date/Time: 09/20/23 11:30 Surgeon: Елена Vargas MD Pre Op Diagnosis: Missed Ab Patient Data Age: 28 Gender: F Height: 1.59 m Weight: 76.6 kg Allergies Allergy/AdvReac Type Severity Reaction Status Date / Time Penicillins Allergy Hives Verified 09/20/23 10:48 Home Medications Medication Instructions Recorded Confirmed Type cholecalciferol (vitamin D3) 1,250 1,250 mcg PO WEEKLY 09/19/23 09/20/23 History mcg (50,000 unit) tablet levothyroxine 88 mcg tablet 88 mcg PO DAILY 09/19/23 09/20/23 History vit no.133-ferrous 1 tablet PO DAILY 09/19/23 09/20/23 History fumarate 28 mg-folic acid 800 mcg tablet () Patient hx anesthesia problems: none Family hx anesthesia problems: none Results Review: All pre-operative results and documents have been reviewed as part of the pre-operative evaluation. [facility] Past Medical History Medical History Hypothyroidism OCD (obsessive compulsive disorder) Family History Family History Father Skin cancer Hypothyroidism Hypertension Grandparent Leukemia Grandparent Liver cancer Grandparent Hypothyroidism Social History Social History Smoking status: Never smoker Second hand tobacco smoke exposure: No Alcohol intake: never Substance use: never Substance use type: does not use Living arrangements: with family Spiritual care concerns: No Anes - Eval Final PreProcedure Day of Procedure 09/20/23 11:30 Patient weight: obese Heart: regular rate and rhythm Lungs: clear to auscultation Airway: Mallampati scale class II Neurological: alert and oriented Last oral intake: >/= 8 hours ASA classification: II Emergent: no Anesthetic plan: proceed Anesthesia type and monitoring: general GIVS and standard monitoring Results Review: All pre-operative results and documents have been reviewed as part of the pre-operative evaluation. Informed Consent: The patient's anesthetic plan and its attendant risks and benefits were discussed with the patient/family/POA. Questions were solicited and answers provided to the satisfaction of the patient/family/POA.
[2023-09-20 11:44] VITALS: BP 102/50; PULSE 69; RESP 20; TEMP 36.7; O2SAT 100
--- NOTE | 2023-09-20 11:44 | WPDHPUPDATE1 ---
History and Physical Update Update Date/Time: 09/20/23 11:44 History and Physical has been reviewed, including an updated exam of the patient. There are NO changes in the patient's condition. Risks, benefits, and alternatives have been discussed and questions answered. Patient agrees to proceed with procedure.
--- NOTE | 2023-09-20 11:45 | P.HP_ITS ---
History of Present Illness History of Present Illness Consent: Risks, benefits, and alternatives have been discussed and questions answered. Patient agrees to proceed with procedure. Chief complaint: Missed Ab Narrative: Fabi Jones is a 28 year old female with missed measuring 5 weeks 4 days. beta HCGs have had an appropriate rise and the most recent level on 09/13 was 61,000 with no heart tones detected. Patient has had no vaginal bleeding. Options were discussed with the patient. She has elected to proceed with D& C. Risks of infection, bleeding, and perforation are reviewed. Patient voices understanding and agrees to proceed. Review of Systems Review of Systems: not repeated day of surgery; patient states no changes in status PMFSH Past Medical History Medical History (Updated 09/20/23 @ 11:48 by Елена Vargas MD) Hypothyroidism (normal spontaneous vaginal delivery) x2 OCD (obsessive compulsive disorder) Family History Family History Father Skin cancer Hypothyroidism Hypertension Grandparent Leukemia Grandparent Liver cancer Grandparent Hypothyroidism Social History Social History Smoking status: Never smoker Second hand tobacco smoke exposure: No Alcohol intake: never Substance use: never Substance use type: does not use Living arrangements: with family Spiritual care concerns: No Meds Home Medications and Allergies Home Medications Medication Instructions Recorded Confirmed Type cholecalciferol (vitamin D3) 1,250 1,250 mcg PO WEEKLY 09/19/23 09/20/23 History mcg (50,000 unit) tablet levothyroxine 88 mcg tablet 88 mcg PO DAILY 09/19/23 09/20/23 History vit no.133-ferrous 1 tablet PO DAILY 09/19/23 09/20/23 History fumarate 28 mg-folic acid 800 mcg tablet () Allergies Allergy/AdvReac Type Severity Reaction Status Date / Time Penicillins Allergy Hives Verified 09/20/23 10:48 Exam Const: General: healthy appearing and alert Orientation/consciousness: patient oriented x3 Resp: Effort & Inspection: normal respiratory effort : External Female Exam: normal external appearance Speculum Exam - Vagina: normal appearance of the vagina and normal vaginal discharge Speculum Exam - Cervix: normal appearance of the cervix Bimanual exam- vagina & uter us: uterine size normal and consistency normal Bimanual Exam- Adnexa, other: normal adnexae and No adnexal tenderness Neuro: General: patient oriented x3 Assessment and Plan Assessment and plan (1) Missed : Code(s): O02.1 - Missed Status: Acute Assessment and Plan: plan to proceed with suction D&C
[2023-09-20 12:15] VITALS: BP 102/60; PULSE 79; RESP 12; O2SAT 96
--- NOTE | 2023-09-20 12:22 | W.PM.PROC2 ---
Procedure Note - Detailed Date of Procedure 09/20/23 Pre-op Diagnosis Missed Ab Post-op Diagnosis Same Procedure Performed suction D&C Surgeon Елена Vargas MD Anesthesia MAC and Local Findings uterus sounds to 9cm moderate products of conception Description of Procedure The patient is taken to the operating room and placed under anesthesia in the dorsal lithotomy position. She was prepped and draped in the usual sterile fashion. [place] speculum was placed in the vagina and the cervix grasped on the anterior lip with a tenaculum. The uterus is sounded to 9cm. The cervix was injected in each quadrant with 1% lidocaine. The cervix is serially dilated to an 8 [place]. The 8mm curved suction curette is used to evacuate the uterus until no further products were noted in the tubing. The sharp curette was then used to curette the endometrium and no further products of conception are noted. The suction curette was passed 1 additional time with no further products noted in the tubing. The uterus was resounded noted to be 7cm. All instruments are removed. Patient is awakened from anesthesia and taken to recovery in stable condition. The sponge, needle, and instrument counts are correct per the OR staff. Estimated Blood Loss 50 ( Amniotic fluid and products of conception) Drains No Packing No Pathology Yes ( products of conception) Complications No immediate complications Condition Stable Disposition PACU
[2023-09-20 12:45] VITALS: BP 106/76; PULSE 89; RESP 12; O2SAT 100
[2023-09-20] MEDS: fentaNYL CITRATE INJ (*CRX) 100 MCG/2 ML VIAL 25 MCG IV PUSH (13:10)
[2023-09-20] MEDS: oxyCODONE HCL (*CRX) 5 MG TAB IR PO (13:10)
[2023-09-20 13:15] VITALS: BP 96/67; PULSE 77; RESP 12
[2023-09-20 13:40] VITALS: BP 103/61; PULSE 69; RESP 12
== END 2023-09-20 13:52 | disposition home or self-care (01) ==
PROVIDERS: PCP Registered Nurse; Visit Provider Obstetrics & Gynecology Gynecology
PROC: (CPT 59820; principal; 2023-09-20 12:00)
DX: O02.1 Missed abortion (principal); E03.9 Hypothyroidism, unspecified
CPT/HCPCS: 59820; 88305; A9270; J1100; J2250; J2405; J2704; J3010; J7120

== ENCOUNTER 2024-03-06 14:05 | Outpatient (CLI) | payer OTHER, SELFPAY ==
--- NOTE | ~2024-03-06 | US_ITS ---
EXAMINATION: US OB <=14 wk fetus w TV DATE: 03/06/2024 15:20 INDICATION: Assess viability during first trimester TECHNIQUE: Real-time pelvic ultrasound utilizing both a transvaginal and transabdominal probe was pe rformed. The interpreting radiologist was not present for the study. COMPARISON: None. FINDINGS: The uterus measures 9.0 x 5.9 x 8.3 cm. There is an intrauterine gestational sac. A yolk sac and fet al pole are identified. The crown rump length measures 1.1 cm, which correlates with an estimated ges tational age of 7 weeks and 2 days. heart motion is identified measuring 140 beats per minute ( bpm) by M-mode Doppler. 1.8 cm an 8 mm hypoechoic uterine fibroids. The right ovary measures 3.0 x 2.0 x 3.0 cm. The left ovary measures 3.8 x 2.0 x 4.2 cm. 1.7 cm anech oic likely nabothian cyst at the left ovary. Vascular flow identified at both ovaries on color Dopple r. There is no free fluid in the pelvis. IMPRESSION: 1. Single living fetus with heart rate of 140 bpm. 2. Gestational age by ultrasound of 7 weeks 2 day(s) +/- 5 day(s) with ultrasound estimated date of delivery (FUNMI) of 10/21/2024. 3. A couple hypoechoic uterine fibroids the larger measuring 1.8 cm. Reviewed, dictated and finalized at location B. IMPRESSION: 1. Single living fetus with heart rate of 140 bpm. 2. Gestational age by ultrasound of 7 weeks 2 day(s) +/- 5 day(s) with ultraso und estimated date of delivery (FUNMI) of 10/21/2024. 3. A couple hypoechoic uterine fibroids the larger measuring 1.8 cm.
== END 2024-03-06 14:06 | disposition home or self-care (01) ==
LOC: ANHIMG 14:07
PROVIDERS: PCP Registered Nurse; Visit Provider Obstetrics & Gynecology Gynecology
DX: O36.80X0 Pregnancy with inconclusive fetal viability, not applicable or unspecified (principal); Z3A.00 Weeks of gestation of pregnancy not specified
CPT/HCPCS: 76801; 76817

== ENCOUNTER 2024-07-28 10:11 | Emergency (ER) | payer OTHER, SELFPAY ==
[2024-07-28 10:15] VITALS: BP 123/80; PULSE 127; RESP 18; TEMP 36.6; O2SAT 98
--- NOTE | 2024-07-28 10:24 | ED.URI ---
HPI - URI/Sore Throat General Chief Complaint: Upper Respiratory Infection Stated Complaint: Cough/Body Aches/Chills Time Seen by Provider: 07/28/24 10:38 Source: patient and RN notes reviewed Mode of arrival: ambulatory Limitations: no limitations History of Present Illness HPI Narrative: 29-year-old female who is 28 weeks presents with concern for cough, body aches, chills, sweats, fluid in her ears. Reports symptoms started yesterday. Reports she has taken Tylenol. Reports her OBGYN recommended she be tested for flu. Her daughter small have the flow MD elicited complaint: cough and sore throat Related Data Home Medications ?Medication ?Instructions ?Recorded ?Confirmed ?Last Taken ?Type cholecalciferol (vitamin D3) 1,250 1,250 mcg PO WEEKLY 09/19/23 07/28/24 Unknown History mcg (50,000 unit) tablet levothyroxine 88 mcg tablet 88 mcg PO DAILY 09/19/23 07/28/24 Unknown History vit no.133-ferrous 1 tablet PO DAILY 09/19/23 07/28/24 Unknown History fumarate 28 mg-folic acid 800 mcg tablet () fluoxetine 20 mg capsule mg 07/28/24 Unknown History Allergies Allergy/AdvReac Type Severity Reaction Status Date / Time Penicillins Allergy Hives Verified 07/28/24 10:20 Review of Systems Review of Systems: CONSTITUTIONAL: Reports malaise, chills, sweats, fever. EYES: Denies visual changes, redness, or discharge. ENT: Reports rhinorrhea, congestion, otalgia CARDIOVASCULAR: Denies chest pain, palpitations, or edema. RESPIRATORY: Reports cough. Denies dyspnea. GASTROINTESTINAL: Denies abdominal pain, nausea, vomiting, diarrhea SKIN: Denies rash or itching. MUSCULOSKELETAL: Reports myalgia. NEUROLOGIC: Reports headache. All systems reviewed & are unremarkable except as noted in HPI and below PMFSH Past Medical History Medical History Hypothyroidism (normal spontaneous vaginal delivery) x2 OCD (obsessive compulsive disorder) Surgical History Surgical History History of D&C Family History Family History Father Skin cancer Hypothyroidism Hypertension Grandparent Leukemia Grandparent Liver cancer Grandparent Hypothyroidism Social History Social History Smoking status: Never smoker Second hand tobacco smoke exposure: No Alcohol intake: never Substance use: never Substance use type: does not use Living arrangements: with family Spiritual care concerns: No Comments At time of signature, agree with nursing past medical, surgical, social and family history. There is no relevant family history pertinent to the presenting complaint Exam Narrative: GENERAL: Well-appearing, well-nourished, and in no acute distress. HEAD: Normocephalic EYES: PERRLA, conjunctivae clear ENT: Nares clear. Mucous membranes moist. TM pearly belle with dull light reflex bilaterally; no tragal tenderness. Oropharynx not erythematous without lesions. Tonsils not enlarged and without exudate, no drooling, no hoarseness, no trismus, uvula midline. NECK: Supple. No lymphadenopathy CHEST: Clear to auscultation, breath sounds equal. No wheezing, rhonchi, rales, or stridor. No respiratory distress, speaks in full sentences. HEART: Regular rate and rhythm. No murmur heard. SKIN: Warm, dry, no rash. NEURO: Alert and oriented x3. PSYCH: Normal mood and affect Course Course Emergency Course: Patient is aware of diagnosis, understands and agrees to treatment plan. Anticipatory guidance given. Patient agrees to follow-up as directed and is aware of reasons to seek care at the emergency department. Portions of this record may have been created with voice recognition software Level of Care: Express Care Visit Vital Signs Vital signs: Vital Signs Temperature 97.8 F 07/28/24 10:15 Pulse Rate 127 H 07/28/24 10:15 Respiratory Rate 18 07/28/24 10:15 Blood Pressure 123/80 07/28/24 10:15 Pulse Oximetry 98 07/28/24 10:15 Oxygen Delivery Room Air 07/28/24 10:15 Temperature 97.8 F 07/28/24 10:15 Pulse Rate 127 H 07/28/24 10:15 Respiratory Rate 18 07/28/24 10:15 Blood Pressure 123/80 07/28/24 10:15 Pulse Oximetry 98 07/28/24 10:15 Oxygen Delivery Room Air 07/28/24 10:15 Reviewed. MDM - URI/Sore Throat MDM Narrative Medical decision making narrative: Differential diagnosis considered: Baker virus, strep pharyngitis, allergic rhinitis, upper respiratory tract infection, sinusitis, rhinosinusitis, nasopharyngitis. viral pharyngitis, otitis media, otitis externa, pneumonia, bronchitis, viral cough syndrome, viral syndrome, and influenza. Exam findings show no acute concerns or changes; patient is non-toxic appearing and is in no distress. Patient is appropriate for outpatient treatment and follow-up. Lab Data Attestation: I reviewed the patient's lab results. Critical Care Time Critical Care Time Critical Care Time: No Discharge Plan Discharge Clinical Impression: Influenza A Patient Disposition: Home, Self-Care Condition: Stable Instructions: Influenza (ED) Additional Instructions: -Take strict precautions to prevent the spread of your virus. Be diligent about covering your cough (even when you are alone) and washing your hands frequently. -You may contagious until you have been symptom and/or fever free for 24 hours without fever reducing medicine -take Tylenol for pain and fever relief (per package directions) -Drink plenty of fluid - drink fluid with electrolytes such as Gatorade or other oral re-hydration solution. Avoid caffeine, which can make dehydration worse. -Get plenty of rest to help your body heal. -Use a cool mist humidifier for chest and nasal congestion. -Eat RAW honey or use cough drops to ease throat discomfort -Do not smoke or expose children to secondhand smoke -Wash your hands frequently. -Please follow-up with your primary care doctor in the next 1-2 days if your symptoms do not improve. -If you have any worsening of symptoms or any other concerns please go to the ED immediately. -Please take medications as prescribed and continue taking your home medications as usual. Patient Language: Yoruba Prescriptions: New oseltamivir 75 mg capsule 75 mg PO BID 5 Days Qty: 10 0RF No Action fluoxetine 20 mg capsule levothyroxine 88 mcg Tablet 88 mcg PO DAILY cholecalciferol (vitamin D3) 1,250 mcg (50,000 unit) Tablet 1,250 mcg PO WEEKLY Rx Instructions: TAKES ON FRIDAYS 28-800 mg-mcg Tablet 1 tablet PO DAILY Follow-up/Referrals: Eva,SUSHMA Ewing [Primary Care Provider] - Time of Disposition: 10:43
[2024-07-28 10:48] LABS: EDCOVIDSCREEN Negative (Negative); EDINFLUASCREEN Positive (Negative); EDINFLUBSCREEN Negative (Negative)
--- OUTSIDE RECORDS SUMMARY | 2024-07-28 11:15 | XMS_ITS | Continuity of Care Document ---
Author Organization [employer] [facility] Address [address] [place] [address] Phone Care Team Providers [facility] [employer] Tech Name Role Phone Nikki Arce, Syed Unavailable Unavailable Procedures Procedure Date Alcohol/Subs Interv 15-30 Min 1 As per patient privacy policy some of the clinical information may not be visible. Advance Directives Directive Yes / No Effective Date File Name No Information Encounters Encounter Description Practice Location Reason(s) For Visit Diagnoses Date Provider Providers Copied on Encounter [facility], [address] [place] [place], [id number] tel:[phone] [facility] No Information 1 Nikki Lynch. [address], [address], [place], [address]. tel:[phone] [facility], [address], [place], [id number] tel:[phone] [facility] Adjustment disorder with anxious moodOther [facility] 1 No Information [facility], [address] [place] [address] [address] [place], [place], [id number] tel:[phone] [facility] Adjustment disorder with anxious moodOther [facility] 1 No Information [facility], [address], [place], [id number] tel:[phone] [facility] Adjustment disorder with anxious moodOther [facility] 1 No Information As per patient privacy policy some of the clinical information may not be visible. Family History Family Member Type Diagnosis Age At Onset No Information Payers Payer name Insurance type Covered libertarian ID Authoriza tion(s) No Information Social History Type Description Quantity Date Captured Comments Alcohol Use Details Unknown Caffeine Use Details Unknown Tobacco Use Status No Information Smoking Status No Information Sex Female Sexual Orientation Straight or heterosexual Jul Gender Identity Female History Of Present Illness Encounter Date Complaint History Of Prese nt Illness No Information Functional Status Date Functional Assessmen t No Information Instructions Date Instruction Additional Infor mation No Information Assessments Type Assessment Date No Information Patient Care Teams Name Effective Dates (start - stop) Status Members No Information
--- OUTSIDE RECORDS SUMMARY | 2024-07-28 11:15 | XMS_ITS | Continuity of Care Document ---
Author Organization [employer] Address [address] [address] Phone Care Team Providers Care Body Maker Name Role Phone [employer] Unavailable Unavaila ble Allergies, Adverse Reactions, Alerts Substance Reaction Status Criticality Penicillins Unknown Active No Information Medications Medication Instructions Dosage Effective Dates (start - stop) Status Comments Maximum D3 325 mcg (13,000 unit) capsule take one capsule once a week - Active levothyroxine 75 mcg tablet take 1 tablet by oral route every day 75 MCG - Active levothyroxine 75 mcg tablet take 1 tablet by oral route every day 75 MCG - No Longer Active Maximum D3 325 mcg (13,000 unit) capsule take one capsule once a week - No Longer Active Procedures Procedure Date OFFICE/OUTPATIENT VISIT, EST ASSAY OF TRANSFERRIN ROUTINE VENIPUNCTURE IRON Ferritin IRON BINDING TEST Vitamin D Profile GENERAL HEALTH PANEL STREP A ASSAY W/OPTIC INFLUENZA ASSAY W/OPTIC COMPLETE CBC W/AUTO DIFF WBC ROUTINE VENIPUNCTURE OFFICE/OUTPATIENT VISIT, EST OFFICE/OUTPATIENT VISIT, EST ASSAY THYROID STIM HORMONE ROUTINE VENIPUNCTURE OFFICE/OUTPATIENT VISIT, EST ASSAY THYROID STIM HORMONE COMPREHEN METABOLIC PANEL ROUTINE VENIPUNCTURE COMPLETE CBC W/AUTO DIFF WBC OFFICE/OUTPATIENT VISIT, NEW TDAP VACCINE >7 IM ASSAY THYROID STIM HORMONE ROUTINE VENIPUNCTURE Advance Directives Directive Yes / No Effective Date File Name No Information Encounters Encounter Description Practice Location Reason(s) For Visit Diagnoses Date Provider Providers Copied on Encounter [facility], [address] [place] [address], [id number] , [place] tel:[phone] [facility] No Information 0-202 0 [employer]. [address], [place], [place], [id number], [place]. tel:[phone] [facility] on, [address] [place] [address], [id number] , [place] tel:[phone] [facility] No Information 8 0 [employer]. [address], [place], [place], [id number], [place]. tel:[phone] OFFICE/OUTPA TIENT VISIT, EST [facility] [employer] [facility] on, [address] [place] [address], [id number] , [place] tel:[phone] [facility] Thyroid problems (chief complaint) Body mass index (BMI) 26.0-26.9, adultHypothyroid ism, unspecifiedFatig ueAnemiaAbnormal weight gain 7202 0 [employer]. [address], [place], [place], [id number], [place]. tel:[phone] OFFICE/OUTPA TIENT VISIT, EST [facility] on, [address] [place] [address], [id number] , [place] tel:[phone] [facility] Cold symptoms (chief complaint) ChillsAcute nasopharyngitis [common cold]Cough No Information Referring Provider: [facility], [address] [place], [place] [address] [id number] [address], [place], [address] . tel:[phone] OFFICE/OUTPA TIENT VISIT, [facility] on, [address] [place] [address], [place], [place], [id number] , tel:[phone] [facility] back pain (chief complaint)T hyroid problems (chief complaint) Body mass index (BMI) 25.0-25.9, adultHypothyroid ismBack pain Feb-3 No Information Referring Provider: [facility] Carolyn Li, [address] [place] [id number], [address] . tel:[phone] OFFICE/OUTPA TIENT VISIT, [facility] on, [address] [place] [address], [place], [place], [id number] , tel:[phone] [facility] Chest discomfort (chief complaint)R efrain (chief complaint)T hyroid problems (chief complaint) Body mass index (BMI) 27.0-27.9, adultAnterior chest-wall painHypothyroidi smFollicular disorder No Information Referring Provider: [facility], [address] [place] [id number], [address] . tel:[phone] OFFICE/OUTPA TIENT VISIT, [facility] on, [address] [place] [address], [id number] , tel:[phone] [facility] est a pcp (chief complaint)T hyroid problems (chief complaint) Body mass index (BMI) 28.0-28.9, adultHypothyroid ismAbnormal weight gainEncounter for immunizationDiet yaquelin counseling No Information [facility]: [facility], [facility] [place] [id number], [place], [address] . tel:[phone] Family History Family Member Type Diagnosis Age At Onset Problem (finding) Family history of hyper tension Immunizations Vaccine Date Status Comments tetanus toxoid, reduced diph theria toxoid, and acellular pertussis vaccine, adsorbed administered Source: Other Provid er Payers Payer name Insurance type Covered constitution party ID Authoriza tion(s) No Information Social History Type Description Quantity Date Captured Comments Alcohol Use Details Unknown Caffeine Use Details Unknown Tobacco Use Status No Information Smoking Status No Information Sex Female Sexual Orientation Straight or heterosexual Gender Identity Female Chief Complaint And Reason For Visit No Information Reason For Referral Reason For Referral No Information Plan Of Treatment Date Type Action Status Goal Depression screening. Due on due Goal Tdap due Goal Influenza vaccine. Due on due Goal PAP. Due on due Goal Lipid panel. Due on due Goal Pap/HPV testing. Due on due Goal Influenza vaccine. Due on due Goal PAP. Due on due Goal Depression screening. Due on due Goal Lipid panel. Due on due Goal Tdap due Goal Pap/HPV testing. Due on due Goal Pap/HPV testing. Due on due Goal PAP. Due on due Goal Lipid panel. Due on due Goal Depression screening. Due on due Goal Tdap due Goal Lifestyle education regardin g diet completed Goal CMP. Due on due Goal Lipid panel. Due on 019 due Goal PAP. Due on due Goal Depression screening. Due on due Goal Tdap due Goal Influenza vaccine. Due on Oc due Goal Pap/HPV testing. Due on due Goal Depression screening. Due on due Goal Lipid panel. Due on 019 due Goal MICROALBUMIN, SEMIQUANT. Due on due Goal Influenza vaccine. Due on Se due Goal Tdap due Goal PAP. Due on due Goal Pap/HPV testing. Due on due Goal Lifestyle education regardin g diet completed Goal Depression screening. Due on due Goal Tdap due Goal PAP. Due on due Goal Pap/HPV testing. Due on due Goal Lifestyle education regardin g diet completed Goal Depression screening. Due on due Goal Pap/HPV testing. Due on due Goal Tdap due Goal PAP. Due on due Goal Lifestyle education regardin g diet completed Referral Ordered: Chest X-ray, 2 View Appointment date/timeframe: 03/18/2019 ordered Patient Education Learning About Vitamin D completed Patient Education Low Back Pain: Exercise s completed Patient Education Healthy Upper Back: Exe rcises completed History Of Present Illness Encounter Date Complaint History Of Prese nt Illness Thyroid problems The severity of the problem is mild. The problem has not changed. Presenting symptoms include fatigue and weight gain. Presenting symptoms do not include atrial fibrillation, dysphagia, hoarseness, insomnia, irregular menses, nervousness, rapid heart beat, skin and nail changes and hard mass. Risk factors include age and female. Cold symptoms Onset: 2 days ag o. The patient describes the cough as productive (of yellow sputum). It occurs persistently. The problem has not changed. There are no aggravating factors. Relieving factors include ibuprofen. Associated symptoms include chills, cough, fatigue, nasal congestion, post-nasal drainage, rhinorrhea and sore throat. Pertinent negatives include dyspnea and fever. Thyroid problems The severity of the problem is mild. The problem has not changed. Presenting symptoms include fatigue and weight gain. Presenting symptoms do not include atrial fibrillation, dysphagia, insomnia, irregular menses, rapid heart beat and skin and nail changes. Risk factors include age and female. back pain Onset: 1 month a go. Location of pain is middle back.There is no radiation of pain. The patient describes the pain as stabbing. Context: twisting movement. Trauma occurred due to no injury. Symptoms are aggravated by twisting.The patient denies relieving factors. Chest discomfort The patient pre sents with a complaint of Chest discomfort. The symptoms began 11 days ago and began suddenly. The patient denies chest discomfort, chest pain, diaphoresis, dyspnea, fatigue, nausea, palpitations and vomiting. Relevant history for this patient excludes tobacco use. The symptoms are aggravated by position and movement. The patient denies any abdominal pain, dysphagia or headache. Thyroid problems The severity of the problem is mild. The problem has worsened. Presenting symptoms include fatigue and weight gain. Presenting symptoms do not include atrial fibrillation, dysphagia, insomnia, irregular menses, rapid heart beat and skin and nail changes. Risk factors include age and female. Rash The patient pres ents for Rash. This episode began 1 year ago. The symptom(s) are described as mild, unchanged and occurs daily. Affected area(s) include groin and biking area. The symptoms are not associated with contact with chemicals and contact with plants. Pertinent negatives include fatigue. Additional information: Chronic razor bumps . Thyroid problems The severity of the problem is mild. The problem has not changed. Presenting symptoms include fatigue and weight gain. Presenting symptoms do not include dysphagia, insomnia, irregular menses, rapid heart beat and skin and nail changes. Risk factors include age and female. 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 Will request records. est a pcp The symptoms are reported as being mild. The symptoms occur daily. She states the symptoms are acute. Here to establish care. Denies previous PCP.Sees [facility] for coat repair inspector care. Functional Status Date Functional Assessmen t No Information Instructions Date Instruction Additional Infor valdez Giving encouragement to exercise Related to Body mass index (BMI) 26.0-26.9, adult Lifestyle education regarding di et Related to Body mass index (BMI) 26.0-26.9, adult Increase fluidsRestO TC cold medsTylenol/Ibuprofen as needed for feverRTC if no better Related to Acute nasopharyngitis [common cold] Healthy diet and exercise Relate d to Body mass index (BMI) 25.0-25.9, adult RTC 6 months Related to Hypot hyroidism Rest, Ice/Heat thera pyNSAIDs, robaxin prnRTC if no better Related to Back pain Giving encouragement to exercise Related to Body mass index (BMI) 25.0-25.9, adult Lifestyle education regarding di et Related to Body mass index (BMI) 25.0-25.9, adult Healthy diet and exercise Relate d to Body mass index (BMI) 27.0-27.9, adult Meloxicam RTC if no improvement Related to Anterior chest-wall pain Giving encouragement to exercise Related to Body mass index (BMI) 27.0-27.9, adult Lifestyle education regarding di et Related to Body mass index (BMI) 27.0-27.9, adult Healthy diet and exercise Relate d to Body mass index (BMI) 28.0-28.9, adult Giving encouragement to exercise Related to Body mass index (BMI) 28.0-28.9, adult Lifestyle education regarding di et Related to Body mass index (BMI) 28.0-28.9, adult Assessments Type Assessment Date No Information Patient Care Teams Name Effective Dates (start - stop) Status Members No Information
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
--- OUTSIDE RECORDS SUMMARY | 2024-07-28 11:15 | XMS_ITS | Data Portability ---
Author Organization [facility] HERNESTOJuan Carlos Donnelly Address [address] [place] [address] Care Team Providers Care Manufacturing Helper Name Role Phone CHRISTELLE PEREZ Primary Care Provider CLEMENT NEWMAN Sales Porter [phone] Assessment No assessment recorded. Plan of Treatment Reminders Order Date Submit Date Provider Last Modified By Organization Details Last Modified Time Details Appointments None record ed. Lab PPD (purif ied protei n deriva tive), skin test 2022 023 LYLE In-Office Order, Internal Use Only DO Not Attach Compendium DO Not Attach Compendium, Do Not Delete/merge, [id number] 10:20:47 CBC 2022 023 [facility], [address] [place] [address], [address], [place], [address], 17:03:49 TSH + free T4, serum 2022 023 LYLE [facility], [address] [place] [address], [address], [place], [address], 15:09:55 thyroi d peroxi dase (tpo) Ab, serum 2022 023 LYLE [facility], [address] [place] [address], [address], [place], [address], 15:09:56 Referral genera dayanna encisoo n referr al 2023 024 [facility] - General Surgery, [address], [place], [address], 4 14:03:25 Procedures None record ed. Surgeries None record ed. Imaging None record ed. Medication Orders Zithro max Z-Tye 250 mg tablet 2021 022 [facility] #[id number], [address], [place], [place], [id number], 3 12:31:34 Tubers ol 5 tub. unit/0 .1 mL intrad ermal inject ion soluti on 2022 023 [email or web address] Not available 3 14:18:55 levoth yroxin e 75 mcg tablet 2022 023 haley [facility] #[id number], [address], [place], [place], [id number], 4 13:04:27 sertra line 50 mg tablet 2022 023 [facility] #[id number], [address], [place], [place], [id number], 3 14:19:12 cetiri zine 10 mg tablet 2022 023 [email or web address] Not available 4 13:04:16 Benadr yl 25 mg capsul e 2022 023 [email or web address] Not available 3 14:18:41 ibupro fen 800 mg tablet 2022 023 [email or web address] Not available 3 14:18:49 levoth yroxin e 75 mcg tablet 2022 024 [facility] [place][id number], [address] [place], [id number], 13:04:38 Patient TargetsNo targets recorded. Patient Instructions Encounter Date Encounter Id Patient Instructions Last Modified By Organization Details Last Modified Time 07/26/2022 [id number] learning about tuberculosis (TB) yarauz Not available 07/26/2022 12:31:48 hypothyroidism: care instructions yarauz Not available 07/26/2022 12:39:23 obsessive-compul s tatiana disorder: care instructions yarauz Not available 07/26/2022 12:39:24 body mass index: care instructions yarauz Not available 07/26/2022 12:31:48 learning about healthy weight yarauz Not available 07/26/2022 12:31:48 return to clinic in 48-72 hours for ppd reading Benefits risks of psychotropic medications if you develop suicidal thoughts or behaviors seek immediate reevaluation avoid alcohol when taking psychotropic medications if you develop fevers, chills, diarrhea, muscle symptoms or seizures to seek immediate reevaluation take your medicine as directed Pt. advised to call 911 or go to a local Emergency Department with any SI or HI, thoughts of self harm or any psychiatric emergency. Pt. is deemed safe and appropriate for continued out patient treatment. Pt. advised of the risk benefit ratio of medication, possible side effects and interactions of the meditations. Pt. wishes to continue with the treatment plan. Pt. advised to call or come in sooner than the scheduled appt. if there are any worsening of symptoms or problems with the medication yarauz Not available 07/26/2022 12:39:22 03/25/2023 [id number] learning about healthy weight yarauz Not available 03/25/2023 14:36:52 hypothyroidism: care instructions yarauz Not available 03/25/2023 14:36:52 body mass index: care instructions yarauz Not available 03/25/2023 14:36:53 Benefits risks o f psychotropic medications if you develop suicidal thoughts or behaviors seek immediate reevaluation avoid alcohol when taking psychotropic medications if you develop fevers, chills, diarrhea, muscle symptoms or seizures to seek immediate reevaluation take your medicine as directed Pt. advised to call 911 or go to a local Emergency Department with any SI or HI, thoughts of self harm or any psychiatric emergency. Pt. is deemed safe and appropriate for continued out patient treatment. Pt. advised of the risk benefit ratio of medication, possible side effects and interactions of the meditations. Pt. wishes to continue with the treatment plan. Pt. advised to call or come in sooner than the scheduled appt. if there are any worsening of symptoms or problems with the medication veronica Not available 03/25/2023 14:36:49 12/27/2023 [id number] learning about healthy weight yajose Not available 12/27/2023 13:29:57 1. if you do not hear about your appointment in the next two weeks call office to check on appt status 2. if you cant make a specialty appointment call and cancel appointment and reschedule because if you dont that specialist may not see you again. yajose Not available 12/27/2023 13:23:59 surgical referral yajose Not availabl e 12/27/2023 13:24:11 Reason for Referral General Surgeon Referral for Lesion of scalp top of scalp 2.5 cm soft mass L posterior scalp 1cm soft mass patient wants removal Referring Physician: Christelle Perez, Family Medicine, Encounter Date: 12/27/2023 Results Created Date Observation Date Name Description Value Unit Range Abnormal Flag Note LastModifiedBy Organization Detail LastModifiedTime 07/30/1907/30/2022 PPD (laura fied prote in deriv ative ), skin test Result Negati ve Not Available In-Office Order Internal Use Only DO Not Attach Compendium DO Not Attach Compendium, Do Not Delete/merge, [id number] 07/26/2022 12:30:58 03/25/2003/26/2023 TSH+F REE T4 TSH 2.570 uIU/m L 0.450- 4.500 Not Available [facility] ([facility]) [address] [facility], , [address], 03/26/2023 15:09:55 03/25/2003/26/2023 TSH+F REE T4 T4,free(dire ct) 1.25 NG/dL 0.82-1 .77 Not Available [facility] ([facility]) [address] [facility], , [address], 03/26/2023 15:09:55 03/25/20 23 03/26/2023 THYRO ID ANTIB ODIES thyroid peroxidase (tpo) Ab 294 IU/mL 0-34 above high normal Not Available [facility] ([facility]) [address] [facility], , [address], 03/26/2023 15:09:56 03/25/20 23 03/26/2023 THYRO ID ANTIB ODIES thyroglobuli n antibody <1.0 IU/mL 0.0-0. 9 Thyro globu chele Antib deb measu red by Beckm an Coult er Metho dolog y Not Available [facility] ([facility]) [address] [facility], , [address], 03/26/2023 15:09:56 03/06/20 24 03/06/2024 US, obste tric, limit ed No observ ation record ed. [facility] [address], [place], [address], 03/09/2024 11:28:01 Result Notes None recorded. Problems Name Problem SNOMED Code Status Onset Date Resolution Date Notes Provider Name and Address Organization Details Recorded Time Hypothyr oidism 59398306 Active 2021 Florina Bar rosa, [place] - [facility] 4 10:51:11 Obsessiv e-compul sive disorder 178938116 Active 2021 Florina Dinero [place], [place] - [facility] 4 10:51:11 Vitamin D deficien cy 35897937 Active 2021 Florina Bar [place] [facility] 4 10:51:11 Body mass index 25-29 - overweig ht 045278989 Active 2021 Florina Bar [place] [facility] 4 10:51:11 Body mass index 30+ - obesity 066879122 Active 2022 ACE Lockhart Attn: Tony saeed,[address] [facility], [place], [address], [facility] - SI 4 13:23:26 Increase d frequenc y of urinatio n 447626803 Completed 12/27/2023 Removal Reason: resolved Christelle Perez [facility] Attn: Accountin g,[address], [place], [address], [facility] - SI 4 13:23:35 Urinary tract infectio us disease 79659819 Completed 12/27/2023 Removal Reason: resolved Christelle Perez [facility] Attn: Accountin g,[address], [place], [address], [facility] - SI 4 13:23:43 Problem Notes None recorded. Procedures Surgical History Date Name Laterality Status Provider Name and Address Organization Details Recorded Time 09/16/2023 Date of Last Pap Smear completed Venus Gomes RN [facility] 12/27/2023 13:05:44 Imaging Results Imaging Date Name Status LastModified by Organiz ation Details LastModified Time 03/06/2024 US, obstetric, limited completed [facility] [address], [place], [address], 03/09/2024 11:28:01 Procedure Notes None recorded. Medical Equipment None Reported. Allergies Allergen ID Allergen Name Allergen Category Reaction Reaction Severity Criticality Documentation Date Start Date Code Code System Note Provider Name and Address Organization Details Recorded Time 635370 Product containin g penicilli n and antibioti c (product) medicatio n hives Not available high 03/28/2022 91338 05 SNOMED Not Available Not Available Not Available 32910 Penicilli n Not available hives Not available Not available 11/26/2014 94981 RxNorm Not Available Not Available Not Available Medications Name Sig Start Date Stop Date Status Note LastModified by Organization Details LastModified Time terconazole 0.4 % vaginal cream 03/28 completed Not Available Not Available Not Available cetirizine 10 mg tablet Take 1 tablet every day by oral route for 30 days. 12/26 completed Not Available Not Available Not Available azithromyci n 250 mg tablet TAKE 2 TABLETS (500 MG) BY ORAL ROUTE ONCE DAILY FOR 1 DAY THEN 1 TABLET (250 MG) BY ORAL ROUTE ONCE DAILY FOR 4 DAYS 07/26 completed Not Available Not Available Not Available ibuprofen 800 mg tablet Take 1 tablet every 8 hours by oral route as needed for 7 days. 03/25 completed Not Available Not Available Not Available nystatin 100,000 unit/gram topical ointment 03/28 completed Not Available Not Available Not Available fluconazole 150 mg tablet 03/28 completed Not Available Not Available Not Available metronidazo le 0.75 % (37.5 mg/5 gram) vaginal gel 03/28 completed Not Available Not Available Not Available Tubersol 5 tub. unit/0.1 mL intradermal injection solution Inject 0.1 mL by intraderm al route. 03/25 completed Not Available Not Available Not Available terconazole 0.8 % vaginal cream 03/28 completed Not Available Not Available Not Available metronidazo le 500 mg tablet 03/28 completed Not Available Not Available Not Available sulfamethox azole 800 mg-trimetho prim 160 mg tablet active Not Available Not Available Not Available levothyroxi ne 75 mcg tablet TAKE 1 TABLET BY MOUTH EVERY DAY active Not Available Not Available No t Available levothyroxi ne 88 mcg tablet active Not Available Not Available Not Available betamethaso ne valerate 0.1 % topical cream 03/28 completed Not Available Not Available Not Available Prozac 20 mg capsule Take 1 capsule every day by oral route. active Not Available Not Available No t Available triamcinolo ne acetonide 0.1 % topical ointment 03/28 completed Not Available Not Available Not Available ergocalcife rol (vitamin D2) 1,250 mcg (50,000 unit) capsule active Not Available Not Available Not Available norethindro ne (contracept tatiana) 0.35 mg tablet 03/28 completed Not Available Not Available Not Available Cipro 250 mg tablet Take 1 tablet every 12 hours by oral route for 3 days. 12/26 completed Not Available Not Available Not Available fluticasone propionate 50 mcg/actuati on nasal spray,suspe nsion 03/28 completed Not Available Not Available Not Available clotrimazol e 1 % topical cream 03/28 completed Not Available Not Available Not Available sertraline 50 mg tablet Take 1 tablet every day by oral route. 03/25 completed Not Available Not Available Not Available Benadryl 25 mg capsule Take 2 capsules every day by oral route at bedtime for 7 days. 03/25 completed Not Available Not Available Not Available Mononessa (28) 0.25 mg-35 mcg tablet active Not Available Not Available Not Available Azo 12/26 completed Not Available Not Available Not Available butalbital- acetaminoph en-caffeine 50 mg-300 mg-40 mg capsule 03/28 completed Not Available Not Available Not Available Phexxi 1.8 %-1 %-0.4 % vaginal gel 03/25 completed Not Available Not Available Not Available Vitals Date Recorded Body height Body mass index (BMI) Body weight Provider Name and Address Organization Details Last Updated DateTime 06/06/2022 157.48 cm 28.3 kg/m2 67220.82 g Brianna Griggs MA [facility] 06/06/2022 11:49:06 Date Recorded Body height Body mass index (BMI) Body weight Oxygen saturation Oxygen saturation in Arterial blood by Pulse oximetry Heart rate Body temperature Systolic blood pressure Diastolic blood pressure Provider Name and Address Organization Details Last Updated DateTime 3 157.48 cm 30.5 kg/m2 65996.5 2 g 98 % 98 % 74 /min 97.8 [degF] 100 mm[Hg] 78 mm[Hg] Lesly shaw MA [facility] 12:11:55 Date Recorded Body height Body mass index (BMI) Body weight Provider Name and Address Organization Details Last Updated DateTime 03/01/2023 157.48 cm 28.3 kg/m2 83305.82 g Brianna Griggs MA [facility] 03/01/2023 14:21:59 Date Recorded Body height Body mass index (BMI) Body weight Oxygen saturation Oxygen saturation in Arterial blood by Pulse oximetry Heart rate Body temperature Systolic blood pressure Diastolic blood pressure Provider Name and Address Organization Details Last Updated DateTime 3 157.48 cm 30 kg/m2 35797.5 5 g 97 % 97 % 98 /min 98.6 [degF] 110 mm[Hg] 80 mm[Hg] Lesly shaw MA [place] [facility] 3 14:20:38 Date Recorded Body height Body mass index (BMI) Body weight Heart rate Body temperature Systolic blood pressure Diastolic blood pressure Provider Name and Address Organization Details Last Updated DateTime 4 157.48 cm 29.6 kg/m2 86800.5 6 g 76 /min 98.6 [degF] 110 mm[Hg] 76 mm[Hg] Venus Gomes RN [place] - [facility] 4 13:08:32 Social History Question Answer Notes LastModified by Organizat ion Details LastModified Time Tobacco Smoking Status Never Smoker Lesly Stoo MA null, [place] - [facility] 03/28/2022 15:04:59 What Is Your Level Of Alcohol Consumption? Occasional Information not available 03/28/2022 How Many Years Have You Consumed Alcohol? 6 Information not available 03/28/2022 Are You Blind Or Do You Have Difficulty Seeing? No Information not available 03/28/2022 Is Blood Transfusion Acceptable In An Emergency? Yes Information not available 04/01/2015 What Is Your Level Of Caffeine Consumption? None Information not available 03/28/2022 In The 14 Days Before Symptom Onset, Have You Had Close Contact With A Laboratory-confir med COVID-19 While That Case Was Ill? No Information not available 03/28/2022 In The 14 Days Before Symptom Onset, Have You Had Close Contact With A Person Who Is Under Investigation For COVID-19 While That Person Was Ill? No Information not available 03/28/2022 Have You Been To An Area Known To Be High Risk For COVID-19? No Information not available 03/28/2022 Are You Currently Employed? No Information not available 03/28/2022 Are You Deaf Or Do You Have Serious Difficulty Hearing? No Information not available 03/28/2022 What Type Of Diet Are You Following? REGULAR Information not available 03/28/2022 Education 12 Information no t available 11/26/2014 Are There Any Guns Present In Your Home? No Information not available 03/28/2022 Live Alone Or With Others? With Others Information not available 04/01/2015 Marital Status Single Informatio n not available 11/26/2014 What Was The Date Of Your Most Recent Tobacco Screening? 12/27/2023 [email or web address] Information not available 12/27/2023 How Many Children Do You Have? 2 Information not available 07/26/2022 Performs Monthly Self-breast Exam? No Information no t available 11/26/2014 Do You Use Protection During Sex? No Information not available 03/28/2022 What Is Your Relationship Status? Information not available 03/28/2022 Do You Use Your Seat Belt Or Car Seat Routinely? Yes Information not available 03/28/2022 Seat Belts Used Routinely Yes Information not available 11/26/2014 Are You Sexually Active? Yes Information not available 03/28/2022 Smoke Alarm In Home Yes Information not available 11/26/2014 Do You Have Smoke And Carbon Monoxide Detectors In Your Home? Yes Information not available 03/28/2022 Are You Passively Exposed To Smoke? No Information no t available 03/28/2022 General Stress Level Medium Information not available 11/26/2014 Do You Feel Stressed (tense, Restless, Nervous, Or Anxious, Or Unable To Sleep At Night)? [id number] Information not available 03/28/2022 Do You Use Any Illicit Or Recreational Drugs? No Information not available 03/28/2022 Do You Use Sunscreen Routinely? No Information not available 03/28/2022 Has Tobacco Cessation Counseling Been Provided? No Information not available 03/28/2022 Do You Or Have You Ever Used Any Other Forms Of Tobacco Or Nicotine? No Information not available 03/28/2022 Sex: Female Functional Status Question Answer Note LastModified by Organization D etails LastModified Time Are you able to care for yourself? Yes Information n ot available 03/28/2022 What is your exercise level? None Information not available 03/28/2022 Mental Status None recorded. Family History Relationship Description Onset Age of this Age Resolved Age Notes LastModified by Organization Details LastModified Time Father Hypothyroidi sm [email or web address] Not available 15:04:18 Paternal Grandfather Hypothyroidi sm [email or web address] Not available 15:04:18 Maternal Grandmother Malignant neoplasm of liver 67 yarauz Not available 2021 15:27:20 Medical History Condition Response Heart Problems N Other N Breast Cancer N Thyroid Problems Y Kidney or Bladder Problems N GI Problems N Lung Disease N Depression N Acne N Breast Problem N Eating Disorder N Anemia N Anesthesia Complications N Headaches/Migraines N Anxiety Disorder N Diabetes N Ovarian Cancer N Blood Transfusions N Arthritis N Polyps N Infertility N Acid Reflux (GERD) N Cancer N Stroke N Abuse/Domestic Violence N Asthma N Endometriosis N High Cholesterol N Hepatitis N Heart Disease N Fibromyalgia N Pre-Eclampsia N Hypertension N Osteoporosis N Kidney Disease N Gynecological History Statement/Question Response Flow Moderate Date of LMP 12/19/2023 STIs/STDs N HPV Vaccine Y Duration of Flow (days) 7 Age at Menarche 11 Current Control Method None Age at First Child 24 Frequency of Cycle (Q days) 28 Sexually Active? Y Menses Monthly Y Date of Last Pap Smear 09/16/2023 Sexual Problems? Y LMP Approximate Obstetrics History GPAL:G 3 P 2 0 1 2 Type Value Full Term 2 Spontaneous 1 Living 2 Total 3 Immunizations Vaccine Type Date Status Note Provider Nam e and Address Organization Details Recorded Time Tdap 08/15/2021 completed SHANNEN Anton, [place] - [facility] 03/28/2022 15:07:47 COVID-19, mRNA, LNP-S, PF, 30 mcg/0.3 mL dose 05/17/2021 completed Lesly Soto [place], [place] [facility] 03/28/2022 15:08:29 COVID-19, mRNA, LNP-S, PF, 30 mcg/0.3 mL dose 07/18/2021 completed Lesly Soto MA [place], [place] - [facility] 03/28/2022 15:08:41 Past Encounters Encounter ID Performer Location Encounter Start Date Encounter Closed Date Diagnosis/Indication Diagnosis SNOMED-CT Code Diagnosis ICD10 Code Diagnosis Note [id number] Florina Quintero (NITROGLYCERIN NEUTRALIZER) [address] [place] [address] 11/26/2014 16:01:21 11/26/2014 16:48:30 IUD check 681694678 IUD in place. Sample OCPs given to prevent period during her wedding. [id number] Florina Quintero (NITROGLYCERIN NEUTRALIZER) [address] [place] [address] 12/29/2014 11:34:58 12/29/2014 13:21:30 Increased frequency of urination 677510230 Urinary tr act infectious disease 01131817 UA positive, dwp. Prevention of UTIs discussed. Rx sent to pharmacy. [id number] Florina Quintero (NITROGLYCERIN NEUTRALIZER) [address] [place] [address] 04/01/2015 13:53:51 04/01/2015 15:27:00 Vaginal discharge 059107482 N89.8 Vaginal discharge appears completely normal, dwp. Vaginal culture sent. Will call pt. if abnormal. [id number] Israel Linda MD [facility] [address], [place] [address] 03/28/2022 14:36:16 03/29/2022 15:57:02 Adult health examination 063578351 Z00.00 27 y/o WF L2 presents for general check up. The patient delivered healthy baby girl 5 months ago. She reports history of hypothyroi dism and vitamin d def. No concerns at this time. Body mass index 25-29 - overweight 714997422 Z68.27 BMI 27 Hypothyroidism 69671216 E03.9 Dx in 2019Taking Levothyrox ine 75mcg daily Vitamin D deficiency 347 61401 E55.9 took Vitamin D2 93149 IUNeeds recheck Obsessive- compulsive disorder 932462029 F42.9 on sertraline controlled Hyperlipid emia screening 916164991 Z13.220 Influenza vaccination declined 649331598 Z28.21 Mental hea lt screening 993881308 Z13.39 CLIFF-7 negative Depression screening 171 040558 Z13.31 PHQ2-9 negative [id number] Suzanna Byrd [facility] ([address]) [address] [place] [address] 06/06/2022 11:46:49 06/07/2022 14:19:11 Exposure to streptococcal pharyngitis 4825116083 105 Z20.818 will treat based off reported exposurefu as neededrepo rt to ED if s/s worsenwarm salt water gargles; trash toothbrush 48h p ABThand hygeine and staying away from others encouraged Do not share food or drink [id number] Christelle Perez [facility] [address] [place] [address] 07/26/2022 11:26:54 07/30/2022 14:48:28 Body mass index 30+ - obesity 083190695 Z68.30 BMI 30.5Health y Weight: {{4'10= 91-118 lbs 4'11= 94-123 lbs 5'= 97-127 lbs 5'1= 100-131 lbs 5'2= 104-135* 5 '3= 107-140 lbs 5'4= 110-144 lbs 5'5= 115-149 lbs 5'6= 118-154 lbs 5'7= 121-158 lbs 5'8= 125-163 lbs 5'9= 128-168 lbs 5'10= 132-173 lbs 5'11= 136-178 lbs 6'= 140-183 lbs 6'1= 144-188 lbs 6'2= 148-193 lbs 6'3= 152-199 lbs 6'4= 156-204 lbs}} Tuberculos is screening 560665659 Z11.1 return to clinic in 48-72 hours for ppd reading Hypothyroidism 46445936 E03.9 Dx in 2019Taking Levothyrox ine 75mcg daily Obsessive- compulsive disorder 099999993 F42.9 on sertraline controlled likes Effexor better but has been bf cant take it [id number] [facility] [address] [place] [address] 03/01/2023 14:17:52 03/08/2023 16:31:29 Pharyngitis 121685204 J02.9 zyrtec in the day and benadryl at HShydratio n and rest encouraged fu w/ PCP in 1 weekreport to ED if s/s worsen or if you experience CP, SOB, STINSON or the like [id number] Christelle Perez, [facility] [address] [place] [address] 03/25/2023 14:11:46 03/26/2023 11:49:56 Body mass index 25-29 - overweight 423130462 Z68.27 BMI 30Healthy Weight: {{4'10= 91-118 lbs 4'11= 94-123 lbs 5'= 97-127 lbs 5'1= 100-131 lbs 5'2= 104-135* 5 '3= 107-140 lbs 5'4= 110-144 lbs 5'5= 115-149 lbs 5'6= 118-154 lbs 5'7= 121-158 lbs 5'8= 125-163 lbs 5'9= 128-168 lbs 5'10= 132-173 lbs 5'11= 136-178 lbs 6'= 140-183 lbs 6'1= 144-188 lbs 6'2= 148-193 lbs 6'3= 152-199 lbs 6'4= 156-204 lbs}} Hypothyroidism 45838439 E03.9 Dx in 2019Taking Levothyrox ine 75mcg daily Vitamin D deficiency 347 66018 E55.9 took Vitamin D2 69698 IU03/28/20 22 Vitamin D 35.4 Obsessive- compulsive disorder 110024890 F42.9 stablepati ent weaned herself off sertraline 50mg 6 months ago Body mass index 30+ - obesity 106409461 Z68.30 BMI 30.Healthy Weight: {{4'10= 91-118 lbs 4'11= 94-123 lbs 5'= 97-127 lbs 5'1= 100-131 lbs 5'2= 104-135* 5 '3= 107-140 lbs 5'4= 110-144 lbs 5'5= 115-149 lbs 5'6= 118-154 lbs 5'7= 121-158 lbs 5'8= 125-163 lbs 5'9= 128-168 lbs 5'10= 132-173 lbs 5'11= 136-178 lbs 6'= 140-183 lbs 6'1= 144-188 lbs 6'2= 148-193 lbs 6'3= 152-199 lbs 6'4= 156-204 lbs}} Mental hea [facility] screening 925696187 Z13.39 CLIFF-7 negative Depression screening 171 543547 Z13.31 PHQ2-9 negative History of anemia 620697 002 Z86.2 [id number] Christelle Perez, [facility] [address], [place] [address] 12/27/2023 12:35:13 01/01/2024 13:20:00 Lesion of scalp [id number] L98.9 top of scalp 2.5 cm soft massL posterior scalp 1cm soft mass Body mass index 25-29 - overweight [id number] Z68.27 BMI 29.6Health y Weight: {{4'10= 91-118 lbs 4'11= 94-123 lbs 5'= 97-127 lbs 5'1= 100-131 lbs 5'2= 104-135* 5 '3= 107-140 lbs 5'4= 110-144 lbs 5'5= 115-149 lbs 5'6= 118-154 lbs 5'7= 121-158 lbs 5'8= 125-163 lbs 5'9= 128-168 lbs 5'10= 132-173 lbs 5'11= 136-178 lbs 6'= 140-183 lbs 6'1= 144-188 lbs 6'2= 148-193 lbs 6'3= 152-199 lbs 6'4= 156-204 lbs}} Sebaceous cyst of skin [id number] L72.3 top of scalp 2.5 cm soft massL posterior scalp 1cm soft mass Depression screening 171 [id number] Z13.31 PHQ2-9 negative Health Concerns Section Related Observation LastModified by Organization Detai ls LastModified Time None Recorded Concern Status LastModified by Organization Details LastModified Time None Recorded Advance Directives Directive None Recorded Payers Encounter Date Sequence Insurance Name Policy Number Policy Quintanilla Covered Member ID Quintanilla Member ID Guarantor Name 06/06/2022 1 [facility] ON OR AFTER 12/15/20 (MEDICAID REPLACEMENT - HMO) Fabi Karen [id number] Fabi Karen 07/26/2022 1 [facility] ON OR AFTER 12/15/20 (MEDICAID REPLACEMENT - HMO) Fabi Karen [id number] Fabi Karen 03/01/2023 2 *SELF PAY* Sa rah Karen 03/25/2023 2 *SELF PAY* Sa rah Karen 12/27/2023 2 *SELF PAY* Sa rah Karen 12/27/2023 1 [facility] ON OR AFTER 12/15/20 (MEDICAID REPLACEMENT - HMO) Fabi Karen [id number] Fabi Karen Notes Date Note Type Note Provider Name and Address Organization Details Recorded Time 06/06/20 22 text/htm l Pt who is currently breast feeding and a history of vit D deficiency and OCD presents to clinic requesting treatment for sore throat and enlarged cervical lymph nodes x 2 days. She reports her daughter is currently being treated for strep pharyngitis. Denies trialing any otc medication. Pt denies nausea, vomiting, fever, chills, rash, cough, CP, SOB, STINSON, diarrhea, constipation and dysuria. Suzanna Byrd, CUPOLA TAPPER- Attn: Accounting, [address] [place], [address], [facility] 06/06/2022 14:19:36 07/26/19 23 text/htm l Anxiety/DepressionReported bypatient.Severity:denies suicidal ideations; able to maintain relationships; does not interfere with activities of daily living Context:no major life stressors Associated Symptoms:denies homicidal ideations; no significant weight gain; no significant weight loss; no visual/auditory hallucinations; no delusions; no shortness of breath; mood good; no anxiety; no crying spells; no panic; no isolation; sleeping well; appetite good; energy good; no apathy; maintaining functionalityThyroidReported bypatient.Context:normal thyroid levels; no history of head or neck radiation during childhood; no history of thyroid disease; no history of hypothyroidism; no history of hyperthyroidism; no excess iron exposure Exercisegets exercise Associated Symptoms:no cold intolerance; no heat intolerance; no weight loss; no weight gain; no double vision; no dry eyes; no hoarseness; no difficulty swallowing; no neck masses; no deepening of the voice; no fast heart rate; no increased blood pressure; no palpitations; no chest pain; no chest tightess or pressure; no constipation; no diarrhea; no vomiting; no decreased appetite; no loose stools; no irregular menstrual periods; no excessive sweating; no joint pain; no numbness; no tingling of the hands or feet; no dry skin; no tremor; no nervousness; no anxiety; no depression; no fatigue; no sleep difficulties; no skin changes; no hair changes 27 y/o WF presents for PPD test. 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 She has no history of tb infection.The patient has been getting her hypothyroidism and OCD/anxiety medication from her fisher lobster/ob. However, voices her provider has asked her to start getting refills of her medications thru a PCP. Since she has recently established here, she is requesting refill of her Rx's. She denies any SI. She voices in the past has used Effexor 37.5mg for her OCD and likes it better. However, since she was and is now BF she was switched to Sertraline 50mg daily by NITROGLYCERIN NEUTRALIZER. Denies any problems with it. States eventually wants to return to effexor. She doesnt see a psychiatrist. Christelle Perez, CUPOLA TAPPER- Attn: Accounting, [address] [place], [address], [place] [facility] 07/27/2022 17:47:12 03/01/20 23 text/htm l Pt who is unemployed who breast feeds presents to clinic requesting treatment for headaches, B ear neck and sore throat ( glass-like sensation) x 1.5 days. She reports myalgia (pain rating 7/10) x 24 hours has self resolved. She reports trialing ibuprofen 400 mg q4-6 hr w/ moderate relief. Pt denies nausea, vomiting, fever, chills, rash, CP, SOB, STINSON, diarrhea, constipation and dysuria. No current COVID-19 test. COVID-19 vaccine current per pt. Suzanna Murry, CUPOLA TAPPER-BC Attn: Accounting, [address] [place], [address], [facility] 03/07/2023 15:44:12 03/25/20 23 text/htm l Anxiety/DepressionReported bypatient.Quality:symptoms improved; Patient stopped sertraline 6 months ago and feels fine no obsessive compulsive thoughts. Severity:denies suicidal ideations; able to maintain relationships; does not interfere with activities of daily living Context:no major life stressors Associated Symptoms:denies homicidal ideations; no significant weight gain; no significant weight loss; no visual/auditory hallucinations; no delusions; no shortness of breath; mood good; no anxiety; no crying spells; no panic; no isolation; sleeping well; appetite good; energy good; no apathy; maintaining functionalityThyroidReported bypatient.Context:normal thyroid levels; no history of head or neck radiation during childhood; no history of thyroid disease; no history of hypothyroidism; no history of hyperthyroidism; no excess iron exposure Exercisegets exercise Associated Symptoms:no cold intolerance; no heat intolerance; no weight loss; no weight gain; no double vision; no dry eyes; no hoarseness; no difficulty swallowing; no neck masses; no deepening of the voice; no fast heart rate; no increased blood pressure; no palpitations; no chest pain; no chest tightess or pressure; no constipation; no diarrhea; no vomiting; no decreased appetite; no loose stools; no irregular menstrual periods; no excessive sweating; no joint pain; no numbness; no tingling of the hands or feet; no dry skin; no tremor; no nervousness; no anxiety; no depression; no fatigue; no sleep difficulties; no skin changes; no hair changes 28y/o WF presents for hypothyroidism medication refill and labs.The patient had been getting her hypothyroidism and OCD/anxiety medication from her fisher lobster/ob. However, voices her provider has asked her to start getting refills of her medications thru a PCP. Since she has recently established here, she is requesting refill of her Rx's.She denies any SI. She voices in the past has used Effexor 37.5mg for her OCD and likes it better. However, since she was and is now BF she was switched to Sertraline 50mg daily by NITROGLYCERIN NEUTRALIZER. She doesnt see a psychiatrist. She stopped sertraline 50mg 6 months ago she weaned herself off. She is doing fine. Reports has history of anemia for which she wants to get checked today. ACE Lockhart Attn: Accounting, [address] [place], [address], [facility] 03/25/2023 15:51:48 12/27/19 24 text/htm l 28 y/o WF presents for referral to general surgeon for removal of two lesions on scalp she has had for a few years. She denies any pain. She would like to go to surgeon in [place]. ACE Lockhart Attn: Accounting, [address] [place], [address], [facility] 12/27/2023 13:32:12 OBGyn Episode Ob Episode Information Episode Created Date Number of Fetuses Patient Bloodtype Patient rh Status Prepregnancy Weight lbs Domestic Partner Domestic Partner Phone Father Name Superintendent Car Construction Status 12/27/19 24 1 CLOSED Fetus Data First Name Last Name Admitted to NICU Weight (g) Sex Living Outcome Pediatric Complications Fetus ID Race Codes Race Delivery Type , Spontane ous [id number] David Calculation Initial David Date Initial Exam Date Initial Exam Provider Initial Ultrasound Date Last Menstrual Period Date Ultra Sound Weeks Gestation 0 Eighteen To Twenty Week David Update Ultra Sound Date Fundal Height At Umbil Quickening Date Ultra Sound Latest Weeks Gestation Final David Confirmed By Final David Confirmed Date Final David Date Ultra Sound Latest Days Gestation 0 0 Menstrual History Last Menstrual Date Menses Monthly On Bcp Conception Prior Menses Frequency Hcg Plus Date Menarche Onset Age Delivery Information Delivery Date Delivery Type Labor Anesthesia Weeks Gestation Incision Type Labor Labor Length Hrs Delivered By Post Complications Tubal Sterilization Discharge Date Comments 4 Discharge Information Feeding Method Contraceptive Method Maternal HG B and HCT Levels Ob Episode Information Episode Created Date Number of Fetuses Patient Bloodtype Patient rh Status Prepregnancy Weight lbs Domestic Partner Domestic Partner Phone Father Name Superintendent Car Construction Status 03/28/20 22 1 CLOSED Fetus Data First Name Last Name Admitted to NICU Weight (g) Sex Living Outcome Pediatric Complications Fetus ID Race Codes Race Delivery Type F Full Term [id number] Vaginal David Calculation Initial David Date Initial Exam Date Initial Exam Provider Initial Ultrasound Date Last Menstrual Period Date Ultra Sound Weeks Gestation 0 Eighteen To Twenty Week David Update Ultra Sound Date Fundal Height At Umbil Quickening Date Ultra Sound Latest Weeks Gestation Final David Confirmed By Final David Confirmed Date Final David Date Ultra Sound Latest Days Gestation 0 0 Menstrual History Last Menstrual Date Menses Monthly On Bcp Conception Prior Menses Frequency Hcg Plus Date Menarche Onset Age Delivery Information Delivery Date Delivery Type Labor Anesthesia Weeks Gestation Incision Type Labor Labor Length Hrs Delivered By Post Complications Tubal Sterilization Discharge Date Comments 8 Discharge Information Feeding Method Contraceptive Method Maternal HG B and HCT Levels Ob Episode Information Episode Created Date Number of Fetuses Patient Bloodtype Patient rh Status Prepregnancy Weight lbs Domestic Partner Domestic Partner Phone Father Name Superintendent Car Construction Status 03/28/20 22 1 CLOSED Fetus Data First Name Last Name Admitted to NICU Weight (g) Sex Living Outcome Pediatric Complications Fetus ID Race Codes Race Delivery Type F Full Term [id number] Vaginal David Calculation Initial David Date Initial Exam Date Initial Exam Provider Initial Ultrasound Date Last Menstrual Period Date Ultra Sound Weeks Gestation 0 Eighteen To Twenty Week David Update Ultra Sound Date Fundal Height At Umbil Quickening Date Ultra Sound Latest Weeks Gestation Final David Confirmed By Final David Confirmed Date Final David Date Ultra Sound Latest Days Gestation 0 0 Menstrual History Last Menstrual Date Menses Monthly On Bcp Conception Prior Menses Frequency Hcg Plus Date Menarche Onset Age Delivery Information Delivery Date Delivery Type Labor Anesthesia Weeks Gestation Incision Type Labor Labor Length Hrs Delivered By Post Complications Tubal Sterilization Discharge Date Comments 2 Discharge Information Feeding Method Contraceptive Method Maternal HG B and HCT Levels
--- OUTSIDE RECORDS SUMMARY | 2024-07-28 11:15 | XMS_ITS | Clinical Summary ---
Author Organization [facility] Address [address] [place] [address] Phone Care Team Providers Care Inspector Final Assembly Mechanical Name Role Phone Unavailable Unavailable Unavailable Reason for Visit and Chief Complaint [facility]TEGRATION ESTABLISHED Plan of Treatment No Plan of Treatment Recorded Assessments Includes: Assessments from this encounter Findings - Adjustment disorder - Last Documented On 11/28/2023 11:27AM ; [facility] Medical Equipment - Implanted Devices Includes: Current Devices No Medical Equipment Recorded Medications Administered Includes: Administered Medications from this encounter No Administered Medications Recorded Results Includes: Results discussed during this encounter No Results Recorded For Specified Dates History of Present Illness Includes: History of Present Illness from this encounter HPI Client shared goals for therapy include: 1) live a more peaceful life 2) process trauma and core beliefs Current health concerns: hypothyroidism, low vitamin D [...] a teenager My parents worked at a children's home, while I stayed home alone miscarriage [...] has been diagnosed with OCD in 2019 She and her , Evin, own their home. Also living with them are their two daughters, Javan. They have two cats and a dog. Housing is stable. Social History No Social History Recorded - Smoking Status Unknown Procedures and Surgical History Includes: Procedures from this encounter Procedures Code Diagnosis Performing Provider Service Location Service Date CLINIC VISIT [facility] (CLINICAL TRAFFIC INVESTIGATOR) [id number] Adjustment disorder, unspecified CHAD BENEDICTW [facility]- 11/28/2023 Last Documented On 4 2:33PM ; [facility] PSYCHI[facility]NOSTIC [facility]ALUATION (CLINICAL TRAFFIC INVESTIGATOR) [address] Adjustment disorder, unspecified CHAD URIBE LCSW [facility]- 11/28/2023 Last Documented On 4 2:33PM ; [facility] Medical History Includes: Medical History addressed during this encounter No Medical History Recorded Family History Includes: Family History addressed during this encounter Description Last Updated Mother's side: anxietyFather 's side: anxiety, depression, PTSD, BPD, substance abuse 11/28/2023 Last Documented On 4 11:04AM ; [facility] Review of Systems Includes: Review of Systems from this encounter No Review of Systems Recorded Mental Status Includes: Mental Status from this encounter No Mental Status Recorded Functional Status Includes: Functional Status from this encounter No Functional Status Recorded Physical Exam Includes: Physical Exam from this encounter Encounters Encounter Provider Location Date Check-In Time Check-Out Time Diagnosis [facility] ESTABLISHED CHAD URIBE 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 [facility]- 11/28/19 24 10:42AM 11:28AM Adjustment Disorder Insurance Includes: Active Insurance Policies Plan Name Member ID Group # Subscriber Relationship Effect tatiana Dates 1 - [facility] [id number] ARACELIS HAMEED Self Clinical Notes Includes: Clinical Notes from this encounter * Progress note Date Encounter Last Documented by 11/28/2023 BE[facility]IORAL HE[facility] TEGRATION ESTABLISHED Last documented on 11/28/2023; 11:27 AM, CHAD URIBE [facility]; [facility] Reason For Visit Initial Assessment Assessment - Adjustment disorder Physical Findings Psychiatric: Psychiatric: Value PHQ9 score: 1 - PHQ9 score: Psychiatric: Value CLIFF 7 score: 3 - CLIFF 7 score: Physician's Services: - Screening for adult depression: impression and score [place]-Suicide Severity Rating Scale Score: 0 Jonathan Wallace [...] a teenager My parents worked at a children's home, while I stayed home alone miscarriage [...] cats, 1 dog, Milady User Defined 18 [employer] User Defined 14 Client shared goals for therapy include: 1) live a more peaceful life 2) process trauma and core beliefs Bottom of Document Time Start: 10:45 a.m. Time End: 11:24 a.m. Next Appt for: 12/22 at 3:30 p.m.
--- OUTSIDE RECORDS SUMMARY | 2024-07-28 11:15 | XMS_ITS | Clinical Summary ---
Author Organization [facility] Address [address] [place] [phone] Phone Care Team Providers Care Aba Therapist Name Role Phone Unavailable Primary Care Provider Unavailabl e Encounters Date Type Department Care Team Description 07/27/2024 12:37 PM GRANULATOR OPERATOR - 07/27/2024 11:59 PM GRANULATOR OPERATOR Hospital Encounter [facility] [address] [place] [address] Елена Vargas MD Arrived Discharge Disposition: Home or Self Care 07/14/2024 External Device Data STL ABSTRACTION Provider, Abstract 07/08/2024 External Device Data STL ABSTRACTION Provider, Abstract 07/08/2024 External Device Data STL ABSTRACTION Provider, Abstract 06/09/2024 External Device Data STL ABSTRACTION Provider, Abstract 06/08/2024 10:00 AM GRANULATOR OPERATOR - 06/08/2024 11:59 PM GRANULATOR OPERATOR Hospital Encounter [facility] [address] [place] [address] Елена Vargas MD Discharge Disposition: Home or Self Care from Last 3 Months Social History Tobacco Use Types Packs/Day Years Used Date Smoking Tobacco: Never Assessed Comments Unknown Sex and Gender Information Value Date Recorded Sex Assigned at Not on file Legal Sex Female 4:19 PM GRANULATOR OPERATOR Gender Identity Not on file Sexual Orientation Not on file Plan of Treatment Upcoming Encounters Date Type Department Care Team (Late st Contact Info) Description 08/24/2024 10:00 AM CDT Appointment [facility] [address] [place] [phone] Shama Chaudhry MD [address] [facility] [address] [place] [address] Health Maintenance Due Date Last Done Comments HEPATITIS B VACCINES (1 of 3 - 19+ 3-dose series) 2014 CERVICAL CANCER SCREENING 02/17/2016 INFLUENZA VACCINE (#1) 2024 DTAP/TDAP/TD VACCINES (2 - T d or Tdap) 08/16/2031 08/15/2021 HPV VACCINES Aged Out No longer eligi ble based on patient's age to complete this topic Procedures Procedure Name Priority Date/Time Associated Diagnosis Comments US OB FOLLOW UP PER FETUS Routine 07/27/2024 1:05 PM GRANULATOR OPERATOR Encounter for ultrasound to check growth US OB 14+ WKS SINGLE GEST Routine 06/08/2024 10:51 AM GRANULATOR OPERATOR Encounter for anatomic survey from Last 3 Months Results * US OB FOLLOW UP PER FETUS (07/27/2024 1:05 PM GRANULATOR OPERATOR) Anatomical Region Laterality Modality Pelvis Ultrasound 07/27/2024 12:4 1 PM GRANULATOR OPERATOR Narrative 07/27/2024 1:08 PM GRANULATOR OPERATOR STL FOLLOW UP ----- Pat. Name: FABI JONES Study Date: 07/27/2024 12:41pm Pat. NO: [id number] Referring MD: ЕЛЕНА VARGAS MD Site: [place] Patient Financial Counselor: Teresa Guardado RDMS : 1995 Age: 29 ----- INDICATION ----- Screening Follow-Up CODING ----- Diagnoses Z3A.27: Weeks of gestation Z36.2: Encounter for other screening follow-up Procedures 70368: Ultrasound, uterus, real time with image documentation, follow up, transabdominal approach per fetus HISTORY ----- OB History 2. Para 1 METHOD ----- Transabdominal ultrasound examination ----- Osuna . Number of fetuses: 1 DATING ----- Cycle: regular cycle GA by prior assessment 27 w + 5 d FUNMI by prior assessment: 10/21/2024 Ultrasound examination on: 07/27/2024 GA by U/S based upon: AC, BPD, EFW, Femur, HC GA by U/S 28 w + 0 d FUNMI by U/S: 10/19/2024 Method of dating: Restore dating from previous exam Assigned: based on stated FUNMI, selected on 06/08/2024 Assigned GA 27 w + 5 d Assigned FUNMI: 10/21/2024 BIOMETRY ----- BPD 69.0 mm 27w 5d 39% Hadlock OFD 89.7 mm 28w 6d 82% Sven HC 255.0 mm 27w 5d 20% Hadlock AC 244.8 mm 28w 5d 73% Hadlock Femur 52.9 mm 28w 1d 47% Hadlock HC / AC 1.04 17% Nicolaides Weight Calculation: EFW 1,214 g 28w 0d 62% Hadlock EFW (lb,oz) 2 lb 11 oz EFW by Hadlock ([id number]) Head / Face / Neck Biometry: Documentation Billing Clerk 3.4 mm Extremities / Bony Struc Biometry: FL / BPD 0.77 FL / HC 0.21 FL / AC 0.22 GENERAL EVALUATION ----- Cardiac activity present. FHR 154 bpm. movements: present. Presentation: cephalic Placenta: Placental site: anterior Umbilical cord: Cord vessels: 3 vessel cord. Insertion site: placental insertion: normal Amniotic fluid: Amount of AF: normal amount. MVP 6.1 cm. RANDOLPH 16.8 cm. Q1 5.1 cm, Q2 6.1 cm, Q3 1.8 cm, Q4 3.8 cm ANATOMY ----- The following structures appear normal: Head / Neck Cranium. Lateral ventricles. Choroid plexus. Midline falx. Cavum septi pellucidi. Heart / Thorax Diaphragm. Abdomen Stomach. Kidneys. Bladder. GROWTH OVERVIEW ----- Exam date GA BPD (mm) HC (mm) AC (mm) FL (mm) HL (mm) EFW (g) 06/08/2024 20w 5d 46.0 18% 175.5 15% 157.6 50% 32.8 26% 31.5 40% 359 34% 07/27/2024 27w 5d 69.0 39% 255.0 20% 244.8 73% 52.9 47% 1,214 62% COMMENT ----- Patient's name and date of were verified by the carton forming machine adjuster prior to the exam IMPRESSION ----- Impression: Osuna viable intrauterine at 27w 5d in cephalic presentation. Estimated weight is 1214 g (62%ile) with abdominal circumference at the 73%ile. Amniotic fluid volume is normal amount, (Amniotic fluid index = 16.8 cm, maximum vertical pocket = 6.1 cm). Left A1UTD with renal pelvis dilation of 5.6mm (at 28 weeks minimal dilation for UTD increases to 7mm). Recommendation: NIPT should be offered if not previously completed. Third trimester ultrasound for growth and anatomy review/evaluation of kidneys around 32 weeks. Thank you for inviting us to participate in your patient's care Procedure Note Shama Chaudhry MD - 07/27/2024 STL FOLLOW UP ----- Pat. Name:Heidy JONES Date:07/27/2024 12:41pm Pat. NO: [id number] MD:ЕЛЕНА VARGAS MD Site:[facility] Prebleographer:Teresa Guardado RDMS :1995Age:29 ----- INDICATION ----- Screening Follow-Up CODING ----- Diagnoses Z3A.27: Weeks of gestation Z36.2: Encounter for other screeningfollow-up Procedures [id number]: Ultrasound, uterus, real time withimage documentation, follow up, transabdominal approach per fetus HISTORY ----- OB History 2. Para 1 METHOD ----- Transabdominal ultrasound examination ----- Osuna . Number of fetuses: 1 DATING ----- Cycle:regular cycle GA by prior [id number] w + 5 d FUNMI by prior assessment:10/21/2024 Ultrasound examination on:07/27/2024 GA by U/S based upon:AC, BPD, EFW, Femur, HC GA by U/S28 w + 0 d FUNMI by U/S:10/19/2024 Method of dating:Restore dating from previous exam Assigned:based on stated FUNMI, selected on 06/08/2024 Assigned GA27 w + 5 d Assigned FUNMI:10/21/2024 BIOMETRY ----- BPD 69.0 mm 27w 5d 39%Hadlock OFD 89.7 mm 28w 6d 82%Sven HC 255.0 mm 27w 5d 20%Hadlock AC 244.8 mm 28w 5d 73%Hadlock Femur 52.9 mm 28w 1d 47%Hadlock HC / AC 1.04 17%Nicolaides Weight Calculation: EFW 1,214 g 28w 0d62% Hadlock EFW (lb,oz) 2 lb 11 oz EFW by Hadlock ([id number]) Head / Face / Neck Biometry: Documentation Billing Clerk 3.4mm Extremities / Bony Struc Biometry: FL / BPD 0.77 FL / HC 0.21 FL / AC 0.22 GENERAL EVALUATION ----- Cardiac activity present. FHR 154 bpm. movements: present.Presentation: cephalic Placenta: Placental site: anterior Umbilical cord: Cord vessels: 3 vessel cord. Insertion site: placentalinsertion: normal Amniotic fluid: Amount of AF: normal amount. MVP 6.1 cm. RANDOLPH 16.8 cm. Q15.1 cm, Q2 6.1 cm, Q3 1.8 cm, Q4 3.8 cm ANATOMY ----- The following structures appear normal: Head / Neck Cranium. Lateral ventricles. Choroid plexus.Midline falx. Cavum septi pellucidi. Heart / Thorax Diaphragm. Abdomen Stomach. Kidneys. Bladder. GROWTH OVERVIEW ----- Exam date GA BPD (mm) HC (mm) AC (mm) FL(mm) HL (mm) EFW (g) 06/08/2024 20w 5d 46.0 18% 175.5 15% 157.6 50%32.8 26% 31.5 40% 359 34% 07/27/2024 27w 5d 69.0 39% 255.0 20% 244.8 73%52.9 47% 1,214 62% COMMENT ----- Patient's name and date of were verified by the carton forming machine adjuster prior tothe exam IMPRESSION ----- Impression: Osuna viable intrauterine at 27w 5d in cephalicpresentation. Estimated weight is 1214 g (62%ile) with abdominal circumference atthe 73%ile. Amniotic fluid volume is normal amount, (Amniotic fluid index = 16.8 cm,maximum vertical pocket = 6.1 cm). Left A1UTD with renal pelvis dilation of 5.6mm (at 28 weeks minimaldilation for UTD increases to 7mm). Recommendation: NIPT should be offered if not previously completed. Third trimester ultrasound for growth and anatomy review/evaluation ofkidneys around 32 weeks. Thank you for inviting us to participate in your patient's care us Елена Vargas MD US ORDERABLES Final Res ult * US OB 14+ WKS SINGLE GEST (06/08/2024 10:51 AM GRANULATOR OPERATOR) Anatomical Region Laterality Modality Pelvis Ultrasound 06/08/2024 10:0 9 AM GRANULATOR OPERATOR Narrative 06/08/2024 11:05 AM GRANULATOR OPERATOR STL BASIC ----- Pat. Name: FABI JONES Study Date: 06/08/2024 10:09am Pat. NO: [id number] Referring MD: ЕЛЕНА VARGAS MD Site: [place] Patient Financial Counselor: Teresa Guardado RDMS : 1995 Age: 29 ----- INDICATION ----- Anatomy Survey pt states normal genetic testing CODING ----- Diagnoses Z3A.20: Weeks of gestation Z36.3: Encounter for screening for malformations Procedures [id number]: Ultrasound, uterus, real time with image documentation, and maternal evaluation, after first trimester (> or = 14 weeks 0 days), transabdominal approach; single or first gestation HISTORY ----- OB History 2. Para 1 MATERNAL ASSESSMENT ----- Physical Exam Weight 79 kg. BMI 32.01 kg/m METHOD ----- Transabdominal ultrasound examination ----- Osuna . Number of fetuses: 1 DATING ----- Cycle: regular cycle Method of dating: based on stated FUNMI GA by prior assessment 20 w + 5 d FUNMI by prior assessment: 10/21/2024 Ultrasound examination on: 06/08/2024 GA by U/S based upon: AC, BPD, EFW, Femur, HC GA by U/S 20 w + 2 d FUNMI by U/S: 10/24/2024 Assigned: based on stated FUNMI, selected on 06/08/2024 Assigned GA 20 w + 5 d Assigned FUNMI: 10/21/2024 BIOMETRY ----- BPD 46.0 mm 19w 6d 18% Hadlock OFD 63.0 mm 21w 4d 77% Sven HC 175.5 mm 20w 0d 15% Hadlock Cerebellum tr 21.6 mm 21w 1d 54% Parkinson Nuchal fold 3.8 mm AC 157.6 mm 20w 6d 50% Hadlock Femur 32.8 mm 20w 2d 26% Hadlock Humerus 31.5 mm 20w 4d 40% Sven HC / AC 1.11 18% Nicolaides Weight Calculation: EFW 359 g 20w 3d 34% Hadlock EFW (lb,oz) 0 lb 13 oz EFW by Hadlock ([id number]) Head / Face / Neck Biometry: Documentation Billing Clerk 5.8 mm CM 2.9 mm 2% Nicolaides Outer IOD 31.1 mm 20w 0d 14% Sven Extremities / Bony Struc Biometry: FL / BPD 0.71 47% Hadlock FL / HC 0.19 48% Hadlock FL / AC 0.21 16% Hadlock GENERAL EVALUATION ----- Cardiac activity present. FHR 159 bpm. movements: visualized. Presentation: cephalic Placenta: Placental site: anterior Umbilical cord: Cord vessels: 3 vessel cord. Insertion site: placental insertion: normal Amniotic fluid: Amount of AF: normal amount. MVP 5.8 cm ANATOMY ----- The following structures appear normal: Head / Neck Cranium. Lateral ventricles. Choroid plexus. Midline falx. Cavum septi pellucidi. Cerebellum. Cisterna magna. Nuchal fold. Face Lips. Profile. Nose. Palate. Orbits. Heart / Thorax 4-chamber view. RVOT view. LVOT view. 3-vessel view. 7-xqetre-hhlbfjh view. Situs. Aortic arch view. Ductal arch view. Superior vena cava. Inferior vena cava. High short axis view. Cardiac rhythm. Diaphragm. Abdomen Abdominal wall. Stomach. Kidneys. Bladder. Spine Cervical spine. Thoracic spine. Lumbar spine. Sacral spine. Extremities / Arms. Right hand. Left hand. Legs. Right foot. Left foot. Skeleton MATERNAL STRUCTURES ----- Cervix Visualized Approach - Transabdominal: Cervical length 37.0 mm Right Ovary Not visualized Left Ovary Not visualized GROWTH OVERVIEW ----- Exam date GA BPD (mm) HC (mm) AC (mm) FL (mm) HL (mm) EFW (g) 06/08/2024 20w 5d 46.0 18% 175.5 15% 157.6 50% 32.8 26% 31.5 40% 359 34% COMMENT ----- Patient's name and date of were confirmed by the carton forming machine adjuster prior to the exam IMPRESSION ----- Osuna @ 20w 5d referred for anatomical survey. - The biometry is consistent with dates. - Amniotic fluid indices are within normal limits. - The placenta is anterior with a central cord insertion and with no evidence of previa or low-lying placenta. - Visualized anatomy is unremarkable and no abnormality is suspected at this time. A followup ultrasound at 32 weeks is scheduled to check growth. Thank you for allowing us to participate in the care of your patient. Procedure Note Soo Salazar MD - 06/08/2024 STL BASIC ----- Pat. Name:Heidy JONES Date:06/08/2024 10:09am Pat. NO: [id number] MD:ЕЛЕНА VARGAS MD Site:[facility] Prebleographer:Teresa Guardado RDMS :1995Age:29 ----- INDICATION ----- Anatomy Survey pt states normalgenetic testing CODING ----- Diagnoses Z3A.20: Weeks of gestation Z36.3: Encounter for screening formalformations Procedures 65572: Ultrasound, uterus, real time withimage documentation, and maternal evaluation, after first trimester (> or = 14 weeks 0 days),transabdominal approach; single or first gestation HISTORY ----- OB History 2. Para 1 MATERNAL ASSESSMENT ----- Physical Exam Weight 79 kg. BMI 32.01 kg/m METHOD ----- Transabdominal ultrasound examination ----- Osuna . Number of fetuses: 1 DATING ----- Cycle:regular cycle Method of dating:based on stated FUNMI GA by prior [id number] w + 5 d FUNMI by prior assessment:10/21/2024 Ultrasound examination on:06/08/2024 GA by U/S based upon:AC, BPD, EFW, Femur, HC GA by U/S20 w + 2 d FUNMI by U/S:10/24/2024 Assigned:based on stated FUNMI, selected on 06/08/2024 Assigned GA20 w + 5 d Assigned FUNMI:10/21/2024 BIOMETRY ----- BPD 46.0 mm 19w 6d18% Hadlock OFD 63.0 mm 21w 4d77% Sven HC 175.5 mm 20w 0d15% Hadlock Cerebellum tr 21.6 mm 21w 1d54% Parkinson Nuchal fold 3.8 mm AC 157.6 mm 20w 6d50% Hadlock Femur 32.8 mm 20w 2d26% Hadlock Humerus 31.5 mm 20w 4d40% Sven HC / AC 1.11 18%Nicolaides Weight Calculation: EFW 359 g 20w 3d 34%Hadlock EFW (lb,oz) 0 lb 13 oz EFW by Hadlock ([id number]) Head / Face / Neck Biometry: Documentation Billing Clerk 5.8 mm CM 2.9 mm 2%Nicolaides Outer IOD 31.1 mm 20w 0d 14%Sven Extremities / Bony Struc Biometry: FL / BPD 0.71 47%Hadlock FL / HC 0.19 48%Hadlock FL / AC 0.21 16%Hadlock GENERAL EVALUATION ----- Cardiac activity present. FHR 159 bpm. movements: visualized.Presentation: cephalic Placenta: Placental site: anterior Umbilical cord: Cord vessels: 3 vessel cord. Insertion site: placentalinsertion: normal Amniotic fluid: Amount of AF: normal amount. MVP 5.8 cm ANATOMY ----- The following structures appear normal: Head / Neck Cranium. Lateral ventricles. Choroid plexus.Midline falx. Cavum septi pellucidi. Cerebellum. Cisterna magna. Nuchal fold. Face Lips. Profile. Nose. Palate. Orbits. Heart / Thorax 4-chamber view. RVOT view. LVOT view. 3-vesselview. 2-omdhna-gotrvze view. Situs. Aortic arch view. Ductal arch view. Superior vena cava. Inferiorvena cava. High short axis view. Cardiac rhythm. Diaphragm. Abdomen Abdominal wall. Stomach. Kidneys. Bladder. Spine Cervical spine. Thoracic spine. Lumbar spine.Sacral spine. Extremities / Arms. Right hand. Left hand. Legs. Right foot.Left foot. Skeleton MATERNAL STRUCTURES ----- Cervix Visualized Approach - Transabdominal: Cervical length 37.0mm Right Ovary Not visualized Left Ovary Not visualized GROWTH OVERVIEW ----- Exam date GA BPD (mm) HC (mm) AC (mm) FL(mm) HL (mm) EFW (g) 06/08/2024 20w 5d 46.0 18% 175.5 15% 157.6 50%32.8 26% 31.5 40% 359 34% COMMENT ----- Patient's name and date of were confirmed by the carton forming machine adjuster priorto the exam IMPRESSION ----- Osuna @ 20w 5d referred for anatomical survey. - The biometry is consistent with dates. - Amniotic fluid indices are within normal limits. - The placenta is anterior with a central cord insertion and with noevidence of previa or low-lying placenta. - Visualized anatomy is unremarkable and no abnormality is suspectedat this time. A followup ultrasound at 32 weeks is scheduled to check growth. Thank you for allowing us to participate in the care of your patient. us Елена Vargas MD ORDERABLES Final Res ult from Last 3 Months Insurance PLAN MEDICAID
--- OUTSIDE RECORDS SUMMARY | 2024-07-28 11:15 | XMS_ITS | Encounter Summary ---
Author Organization [facility] Address [address] [place] [address] Care Team Providers Care Wood Drill Operator Name Role Phone Unavailable Primary Care Provider Unavailabl e Reason for Referral * Radiology Services (Routine) - Closed Specialty Diagnoses / Procedures Referred By Contac t Referred To Contact Diagnoses Encounter for ultrasound to check growth Procedures US OB FOLLOW UP PER FETUS US OB LIMITED + NST TX NONSTRESS TEST CHG US UTERUS LIMITED 1/> FETUSES [place] Елена Vargas MD [address] [place] [phone] Phone: tel: fax: [facility] [address] [place] [phone] Phone: tel: fax: Referral ID Status Reason Start Date Expiration Date Visits Re quested Visits Authorized [id number] Closed 06/08/2024 07/09/2025 1 1 GUARD INSPECTOR Reason for Visit * Radiology Services (Routine) - Closed Specialty Diagnoses / Procedures Referred By Contac t Referred To Contact Diagnoses Encounter for ultrasound to check growth Procedures US OB FOLLOW UP PER FETUS US OB LIMITED + NST TX NONSTRESS TEST CHG US UTERUS LIMITED 1/> FETUSES [place] Елена Vargas MD [address] [place] [phone] Phone: tel: fax: [facility] [address] [place] [phone] Phone: tel: fax: Referral ID Status Reason Start Date Expiration Date Visits Re quested Visits Authorized [id number] Closed 06/08/2024 07/09/2025 1 1 Encounter Details Date Type Department Care Team (Late st Contact Info) Description 07/27/2024 12:37 PM ICE GUARD INSPECTOR - 07/27/2024 11:59 PM ICE GUARD INSPECTOR Hospital Encounter [facility] [address] [place] [phone] Елена Vargas MD [address] [phone] Arrived Discharge Disposition: Home or Self Care Social History Tobacco Use Types Packs/Day Years Used Date Smoking Tobacco: Never Assessed Comments Unknown Sex and Gender Information Value Date Recorded Sex Assigned at Not on file Legal Sex Female 4:19 PM ICE GUARD INSPECTOR Gender Identity Not on file Sexual Orientation Not on file documented as of this encounter Plan of Treatment Upcoming Encounters Date Type Department Care Team (Late st Contact Info) Description 08/24/2024 10:00 AM CDT Appointment [facility] [address] [place] [phone] Shama Chaudhry MD [address] [place] [phone] documented as of this encounter Procedures Procedure Name Priority Date/Time Associated Diagnosis Comments US OB FOLLOW UP PER FETUS Routine 07/27/2024 1:05 PM ICE GUARD INSPECTOR Encounter for ultrasound to check growth documented in this encounter Results * US OB FOLLOW UP PER FETUS (07/27/2024 1:05 PM ICE GUARD INSPECTOR) Anatomical Region Laterality Modality Pelvis Ultrasound 07/27/2024 12:4 1 PM ICE GUARD INSPECTOR Narrative 07/27/2024 1:08 PM ICE GUARD INSPECTOR STL FOLLOW UP ----- Pat. Name: FABI JONES Study Date: 07/27/2024 12:41pm Pat. NO: [id number] Referring MD: ЕЛЕНА VARGAS MD Site: [facility] [employer] Miner: Teresa Guardado RDMS : 1995 Age: 29 ----- INDICATION ----- Screening Follow-Up CODING ----- Diagnoses Z3A.27: Weeks of gestation Z36.2: Encounter for other screening follow-up Procedures 11295: Ultrasound, uterus, real time with image documentation, [...] 2 lb 11 oz EFW by Hadlock ([id number]) Head / Face / Neck Biometry: Supervisor Reinforced Steel Placing 3.4 mm Extremities / Bony Struc Biometry: [...] and date of were verified by the reading instructor prior to the exam IMPRESSION ----- Impression: [...] Pat. Name:Heidy JONES Date:07/27/2024 12:41pm Pat. NO: [id number] MD:ЕЛЕНА VARGAS MD Site:[address] Hospitalographer:Teresa Guardado RDMS :1995Age:29 ----- INDICATION ----- Screening Follow-Up CODING ----- Diagnoses Z3A.27: Weeks of gestation Z36.2: Encounter for other screeningfollow-up Procedures 82369: Ultrasound, uterus, real time withimage documentation, follow up, transabdominal approach per fetus HISTORY ----- OB History 2. Para 1 METHOD ----- Transabdominal ultrasound examination ----- Osuna . Number of fetuses: 1 DATING ----- Cycle:regular cycle GA by prior [id number] w + 5 d FUNMI by prior [...] 2 lb 11 oz EFW by Hadlock ([id number]) Head / Face / Neck Biometry: Supervisor Reinforced Steel Placing 3.4mm Extremities / Bony Struc Biometry: FL [...] and date of were verified by the reading instructor prior tothe exam IMPRESSION ----- Impression: Osuna [...] Vargas MD US ORDERABLES Final Res ult documented in this encounter Visit Diagnoses Diagnosis Encounter for ultrasound to check growth documented in this encounter
--- OUTSIDE RECORDS SUMMARY | 2024-07-28 11:15 | XMS_ITS ---
Care Plan - [facility] Created on: July 28, 2024 ARACELIS HAMEED : 1995 Sex: Female Author Organization [facility] Address [address] [place] [address] Phone Care Team Providers Care Commercial Lawn Specialist Name Role Phone Unavailable Unavailable Unavailable
--- OUTSIDE RECORDS SUMMARY | 2024-07-28 11:16 | XMS_ITS | Clinical Summary ---
Author Organization [facility] Address [address] [place] [address] Phone Care Team Providers Care Breaker Boss Name Role Phone Unavailable Unavailable Unavailable Reason for Visit and Chief Complaint BEHAVIORAL HEALTH INTEGRATION ESTABLISHED Plan of Treatment No Plan of Treatment Recorded Assessments Includes: Assessments from this encounter Findings - Adjustment disorder - Last Documented On 11/28/2023 11:27AM ; [facility] Medical Equipment - Implanted Devices Includes: [...] Provider Service Location Service Date CLINIC VISIT [facility] (CLINICAL SANDWICH 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) T1040 Adjustment disorder, unspecified CHAD BENEDICTW [facility]- 11/28/2023 Last Documented On 4 2:33PM ; [facility] PSYCHIATRIC DIAGNOSTIC EVALUATION (CLINICAL SANDWICH 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) 27735 Adjustment disorder, unspecified CHAD URIBE LCSW [facility]- 11/28/2023 Last Documented On 4 2:33PM ; [facility] Medical History Includes: Medical History addressed during this encounter No Medical History Recorded Family History Includes: Family History addressed during this encounter Description Last Updated Mother's side: anxietyFather 's side: anxiety, depression, PTSD, BPD, substance abuse 11/28/2023 Last Documented On 4 11:04AM ; [facility] Review of Systems Includes: Review of [...] Diagnosis BEHAVIORAL HEALTH INTEGRATION ESTABLISHED CHAD URIBE TENANT COORDINATOR [facility]- 11/28/19 24 10:42AM 11:28AM Adjustment Disorder Insurance Includes: Active Insurance Policies Plan Name Member ID Group # Subscriber Relationship Effect tatiana Dates 1 - [facility] [id number] ARACELIS HAMEED Self Clinical Notes Includes: Clinical Notes from this encounter * Progress note Date Encounter Last Documented by 11/28/2023 BEHAVIORAL HEALTH IN TEGRATION ESTABLISHED Last documented on 11/28/2023; 11:27 AM, CHAD URIBE [facility]; [facility] Reason For Visit Initial Assessment Assessment - Adjustment disorder Physical Findings Psychiatric: Psychiatric: Value PHQ9 score: 1 - PHQ9 score: Psychiatric: Value CLIFF 7 score: 3 - CLIFF 7 score: Physician's Services: - Screening for adult depression: impression and score [place]-Suicide Severity Rating Scale Score: 0 Jonathan Wallace [...] cats, 1 dog, Milady User Defined 18 Confucianist User Defined 14 Client shared goals for therapy include: 1) live a more peaceful life 2) process trauma and core beliefs Bottom of Document Time Start: 10:45 a.m. Time End: 11:24 a.m. Next Appt for: 12/22 at 3:30 p.m.
--- OUTSIDE RECORDS SUMMARY | 2024-07-28 11:16 | XMS_ITS ---
Author Organization [facility] Address [address] [place] [address] Phone Care Team Providers Care Supervisor Communications And Signals Name Role Phone Unavailable Unavailable Unavailable Plan of Treatment No Plan of Treatment Recorded Assessments Includes: Assessments for all patient encounters Findings Encounter Date Adjustment disorder BEHAVIORAL HEALTH IN TEGRATION ESTABLISHED with CHAD URIBE [facility] 11/28/2023 Last Documented On 4 11:27AM ; [facility] Medical Equipment - Implanted Devices Includes: Current [...] Provider Service Location Service Date CLINIC VISIT [facility] (CLINICAL MAINTENANCE PARTS TECHNICIAN) T1040 Adjustment disorder, unspecified CHAD D RONY [facility] 11/28/2023 Last Documented On 4 2:33PM ; [facility] PSYCHIATRIC DIAGNOSTIC EVALUATION (CLINICAL MAINTENANCE PARTS TECHNICIAN) 09998 Adjustment disorder, unspecified [facility]AD D RONY [facility] 11/28/2023 Last Documented On 4 2:33PM ; [facility] Medical History Includes: Medical History in patient's [...] Diagnosis BEHAVIORAL HEALTH INTEGRATION ESTABLISHED CHAD URIBE DENTURE FINISHER [facility] 11/28/19 24 10:42AM 11:28AM Adjustment Disorder Insurance Includes: Active Insurance Policies Plan Name Member ID Group # Subscriber Relationship Effect tatiana Dates 1 - [employer] [id number] ARACELIS HAMEED Self Clinical Notes Includes: Signed Clinical Notes starting from 07/06/2022 * Progress note Date Encounter Last Documented by 11/28/2023 BEHAVIORAL HEALTH IN TEGRATION ESTABLISHED Last documented on 11/28/2023; 11:27 AM, CHAD URIBE LCSW; [facility] Reason For Visit Initial Assessment Assessment - Adjustment disorder Physical Findings Psychiatric: Psychiatric: Value PHQ9 score: 1 - PHQ9 score: Psychiatric: Value CLIFF 7 score: 3 - CLIFF 7 score: Physician's Services: - Screening for adult depression: impression and score [place]-Suicide Severity Rating Scale Score: 0 Jonathan Wallcae Safety Plan Completed: Yes No User Defined [...] a teenager My parents worked at a [employer] home, while I stayed home alone miscarriage [...] cats, 1 dog, Milady User Defined 18 Caodaism User Defined 14 Client shared goals for therapy include: 1) live a more peaceful life 2) process trauma and core beliefs Bottom of Document Time Start: 10:45 a.m. Time End: 11:24 a.m. Next Appt for: 12/22 at 3:30 p.m.
--- OUTSIDE RECORDS SUMMARY | 2024-07-28 11:16 | XMS_ITS ---
Care Plan - [facility] Created on: July 28, 2024 ARACELIS HAMEED : 1995 Sex: Female Author Organization [facility] Address [address] [place] [address] Phone Care Team Providers Care Mortgage Loan Closer Name Role Phone Unavailable Unavailable Unavailable
--- OUTSIDE RECORDS SUMMARY | 2024-07-28 11:16 | XMS_ITS | Continuity of Care Document ---
Author Organization [facility] Address [address] [place] [address] Phone Care Team Providers Care Plan Checker Name Role Phone Nikki Arce, Syed Unavailable Unavailable Procedures Procedure Date Alcohol/Subs Interv 15-30 Min 1 As per patient privacy policy some of the clinical information may not be visible. Advance Directives Directive Yes / No Effective Date File Name No Information Encounters Encounter Description Practice Location Reason(s) For Visit Diagnoses Date Provider Providers Copied on Encounter [facility], [address] [place] [place], [id number] tel:[phone] [facility] No Information [address] [facility], [address], [place], [address]. tel:[phone] [facility], [address] [place], [place], [id number] tel:[phone] [facility] Adjustment disorder with anxious moodOther Specified Counseling 1 No Information [facility], [address] [place] [address] [address] [place], [id number] tel:[phone] [facility] Adjustment disorder with anxious moodOther Specified Counseling 1 No Information [facility], [address] [place], [place], [id number] tel:[phone] [facility] Adjustment disorder with anxious moodOther Specified Counseling 1 No Information As per patient privacy policy some of the clinical information may not be visible. Family History Family Member Type Diagnosis Age At Onset No Information Payers Payer name Insurance type Covered green party ID Authoriza tion(s) No Information Social [...]
--- OUTSIDE RECORDS SUMMARY | 2024-07-28 11:16 | XMS_ITS | Continuity of Care Document ---
Author Organization [facility] Address [address] [address] Phone Care Team Providers Care Relief Master Name Role Phone Odin[facility] BOMB LOADER-CAn Unavailable Unavaila ble Allergies, Adverse Reactions, Alerts [...] Diagnoses Date Provider Providers Copied on Encounter [facility] on, [address] [place] [address], [id number] , [place] tel:[phone] [facility] No Information [phone] [facility]. [address], [place], [place], [id number], [place]. tel:[phone] [facility] on, [address] [place] [address], [id number] , [place] tel:[phone] [facility] No Information 8 0 [facility]. [address], [place], [place], [id number], [place]. tel:[phone] OFFICE/OUTPA TIENT VISIT, EST [facility] on, [address] [place] [address], [id number] , [place] tel:[phone] [facility] Thyroid problems (chief complaint) Body mass index (BMI) 26.0-26.9, adultHypothyroid ism, unspecifiedFatig ueAnemiaAbnormal weight gain 7202 0 [facility]. [address], [place], [place], [id number], [place]. tel:[phone] OFFICE/OUTPA TIENT VISIT, EST [facility] [employer] on, [address] [place] [address], [id number] , [place] tel:[phone] [facility] Cold symptoms (chief complaint) ChillsAcute nasopharyngitis [common cold]Cough No Information Referring Provider: [facility] Li, [address] [place], [place] [address]Alvin [id number] [address], [place], [address] . tel:[phone] OFFICE/OUTPA TIENT VISIT, [facility] on, [address] [place] [address], [place], [place], [id number] , tel:[phone] [facility] back pain (chief complaint)T hyroid problems (chief complaint) Body mass index (BMI) 25.0-25.9, adultHypothyroid ismBack pain Feb-3 No Information Referring Provider: [facility] Carolyn Li, [address] [place] [id number], [address] . tel:[phone] OFFICE/OUTPA TIENT VISIT, [facility] on, [address] [place] [address], [place], [place], [id number] , tel:[phone] [facility] Chest discomfort (chief complaint)R efrain (chief complaint)T hyroid problems (chief complaint) Body mass index (BMI) 27.0-27.9, adultAnterior chest-wall painHypothyroidi smFollicular disorder No Information Referring Provider: [facility] Li, [address] [place] [id number], [address] . tel:[phone] OFFICE/OUTPA TIENT VISIT, [facility] on, [address] [place] [address], [id number] , tel:[phone] [facility] est a pcp (chief complaint)T hyroid problems (chief complaint) Body mass index (BMI) 28.0-28.9, adultHypothyroid ismAbnormal weight gainEncounter for immunizationDiet yaquelin counseling No Information Referring [facility]: [facility], [facility] Alvin [id number], [place], [address] . tel:[phone] Family History Family Member Type Diagnosis Age At Onset Problem (finding) Family history of hyper tension Immunizations Vaccine Date Status Comments tetanus toxoid, reduced diph theria toxoid, and acellular pertussis vaccine, adsorbed administered Source: Other Provid er Payers Payer name Insurance type Covered democrat ID Authoriza tion(s) No Information Social History [...] Of Treatment Date Type Action Status Goal Tdap due Goal Depression screening. Due on due Goal Influenza vaccine. Due on due Goal PAP. Due on due Goal Lipid panel. Due on due Goal Pap/HPV testing. Due on due Goal Influenza vaccine. Due on due Goal Pap/HPV testing. Due on due Goal Tdap due Goal Lipid panel. Due on due Goal Depression screening. Due on due Goal PAP. Due on due Goal Tdap due Goal Depression screening. Due on due Goal Lipid panel. Due on due Goal PAP. Due on due Goal Pap/HPV testing. Due on due Goal Lifestyle education regardin g diet completed Goal CMP. Due on due Goal Lipid panel. Due on 019 due Goal PAP. Due on due Goal Depression screening. Due on due Goal Pap/HPV testing. Due on due Goal Tdap due Goal Influenza vaccine. Due on due Goal Pap/HPV testing. Due on due Goal PAP. Due on due Goal Tdap due Goal Influenza vaccine. Due on due Goal MICROALBUMIN, SEMIQUANT. Due on due Goal Lipid panel. Due on 019 due Goal Depression screening. Due on due Goal Lifestyle education regardin [...] female. Additional information: Reports TSH 8.58 at finish off operator last week. Will request records. est a pcp The symptoms are reported as being mild. The symptoms occur daily. She states the symptoms are acute. Here to establish care. Denies previous PCP.Sees [facility] for finish off operator care. Functional Status Date Functional Assessmen t [...]
== END 2024-07-28 10:44 | disposition home or self-care (01) ==
PROVIDERS: Emergency Provider Nurse Practitioner; PCP Registered Nurse
DX: O98.513 Other viral diseases complicating pregnancy, third trimester (principal); J10.1 Influenza due to other identified influenza virus with other respiratory manifestations; Z20.822 Contact with and (suspected) exposure to COVID-19; E03.9 Hypothyroidism, unspecified; O99.283 Endocrine, nutritional and metabolic diseases complicating pregnancy, third trimester; Z3A.28 28 weeks gestation of pregnancy
CPT/HCPCS: 87426; 87804; 99213; G0463

== ENCOUNTER 2024-08-21 16:00 | Observation (INO) | payer OTHER, SELFPAY ==
--- OUTSIDE RECORDS SUMMARY | 2024-08-21 16:08 | XMS_ITS ---
Author Organization [facility] Address [address] [place] [address] Phone Care Team Providers Care Elastic Assembler Name Role Phone Unavailable Unavailable Unavailable Plan of Treatment No Plan of Treatment Recorded Assessments Includes: Assessments for all patient encounters Findings Encounter Date Adjustment disorder BEHAVIORAL HEALTH IN TEGRATION ESTABLISHED with CHAD URIBE [facility] 11/28/2023 Last Documented On 4 11:27AM ; [facility] Medical Equipment - Implanted Devices Includes: Current and historical Devices No Medical Equipment Recorded Medications Administered Includes: Administered Medications in patient's chart No Administered Medications Recorded Results Includes: Results from 08/22/2023 through 08/21/2024 No Results Recorded For Specified Dates History of Present Illness History of Present Illness not supported for this document type No History of Present Illness Recorded Social History No Social History Recorded - Smoking Status Unknown Procedures and Surgical History Includes: Procedures from 08/22/2023 through 08/21/2024 Procedures Code Diagnosis Performing Provider Service Location Service Date CLINIC VISIT [facility] (CLINICAL COMPUTER TECHNOLOGY TRAINER) T1040 Adjustment disorder, unspecified CHAD D RONY [facility] 11/28/2023 Last Documented On 4 2:33PM ; [facility] PSYCHIATRIC DIAGNOSTIC EVALUATION (CLINICAL COMPUTER TECHNOLOGY TRAINER) 59374 Adjustment disorder, unspecified CHAD D RONY [facility] 11/28/2023 Last Documented On 4 2:33PM ; [facility] Medical History Includes: Medical History in patient's [...] Physical Exam Recorded Encounters Includes: Encounters from 08/22/2023 through 08/21/2024 Encounter Provider Location Date Check-In Time Check-Out Time Diagnosis BEHAVIORAL HEALTH INTEGRATION ESTABLISHED 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 URIBE 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 [facility] 11/28/19 24 10:42AM 11:28AM Adjustment Disorder Insurance Includes: Active Insurance Policies Plan Name Member ID Group # Subscriber Relationship Effect tatiana Dates 1 - [employer] [id number] ARACELIS HAMEED Self Clinical Notes Includes: Signed Clinical Notes starting from 07/06/2022 * Progress note Date Encounter Last Documented by 11/28/2023 BEHAVIORAL HEALTH IN TEGRATION ESTABLISHED Last documented on 11/28/2023; 11:27 AM, CHAD URIBE LCSW; [facility] Reason For Visit Initial Assessment Assessment - Adjustment disorder Physical Findings Psychiatric: Psychiatric: Value PHQ9 score: 1 - PHQ9 score: Psychiatric: Value CLIFF 7 score: 3 - CLIFF 7 score: Physician's Services: - Screening for adult depression: impression and score [place]-Suicide Severity Rating Scale Score: 0 Jonathan Wallace [...] a teenager My parents worked at a [employer] home, while I stayed home alone miscarriage [...] cats, 1 dog, Milady User Defined 18 Restoration User Defined 14 Client shared goals for therapy include: 1) live a more peaceful life 2) process trauma and core beliefs Bottom of Document Time Start: 10:45 a.m. Time End: 11:24 a.m. Next Appt for: 12/22 at 3:30 p.m.
--- OUTSIDE RECORDS SUMMARY | 2024-08-21 16:08 | XMS_ITS | Clinical Summary ---
Author Organization [facility] Address [address] [place] [phone] Phone Care Team Providers Care Staff Internist Office Based Only Name Role Phone Unavailable Primary Care Provider Unavailabl e Encounters Date Type Department Care Team Description 08/19/2024 External Device Data STL ABSTRACTION Provider, Abstract 08/05/2024 External Device Data STL ABSTRACTION Provider, Abstract 07/27/2024 12:37 PM HR CLERK - 07/27/2024 11:59 PM HR CLERK Hospital Encounter [facility] Crzuito Xiao [address] [place] [phone] Елена Vargas MD Discharge Disposition: Home or Self Care 07/14/2024 External Device Data STL ABSTRACTION Provider, Abstract 07/08/2024 External Device Data STL ABSTRACTION Provider, Abstract 07/08/2024 External Device Data STL ABSTRACTION Provider, Abstract 06/09/2024 External Device Data STL ABSTRACTION Provider, Abstract 06/08/2024 10:00 AM HR CLERK - 06/08/2024 11:59 PM HR CLERK Hospital Encounter [facility] Cruzito Xiao [address] [place] [phone] Елена Vargas MD Discharge Disposition: Home or Self Care from Last 3 Months Social History Tobacco Use Types Packs/Day Years Used Date Smoking Tobacco: Never Assessed Comments Unknown Sex and Gender Information Value Date Recorded Sex Assigned at Not on file Legal Sex Female 4:19 PM HR CLERK Gender Identity Not on file Sexual Orientation Not on file Plan of Treatment Upcoming Encounters Date Type Department Care Team (Late st Contact Info) Description 08/24/2024 10:00 AM CDT Appointment [facility] Cruzito Xiao [address] [place] [phone] Shama Chaudhry MD [address] [address] [place] [address] Health Maintenance Due Date Last Done Comments HEPATITIS B VACCINES (1 of 3 - 19+ 3-dose series) 2014 CERVICAL CANCER SCREENING 02/17/2016 Preventative Visit-Managed Medicaid 03/29/2023 03/28/2022 INFLUENZA VACCINE (#1) 2024 DTAP/TDAP/TD VACCINES (2 - T d or Tdap) 08/16/2031 08/15/2021 HPV VACCINES Aged Out No longer eligi ble based on patient's age to complete this topic Procedures Procedure Name Priority Date/Time Associated Diagnosis Comments US OB FOLLOW UP PER FETUS Routine 07/27/2024 1:05 PM HR CLERK Encounter for ultrasound to check growth US OB 14+ WKS SINGLE GEST Routine 06/08/2024 10:51 AM HR CLERK Encounter for anatomic survey from Last 3 Months Results * US OB FOLLOW UP PER FETUS (07/27/2024 1:05 PM HR CLERK) Anatomical Region Laterality Modality Pelvis Ultrasound 07/27/2024 12:4 1 PM HR CLERK Narrative 07/27/2024 1:08 PM HR CLERK STL FOLLOW UP ----- Pat. Name: FABI JONES Study Date: 07/27/2024 12:41pm Pat. NO: [id number] Referring MD: ЕЛЕНА VARGAS MD Site: [place] [employer]: Teresa Guardado RDMS : 1995 Age: 29 ----- INDICATION ----- Screening Follow-Up CODING ----- Diagnoses Z3A.27: Weeks of gestation Z36.2: Encounter for other screening follow-up Procedures 17586: Ultrasound, uterus, real time with image documentation, [...] 2 lb 11 oz EFW by Hadlock ([id number]-[id number]-[id number]-FL) Head / Face / Neck Biometry: On Line Csr 3.4 mm Extremities / Bony Struc Biometry: [...] and date of were verified by the punchboard filling machine operator prior to the exam IMPRESSION ----- Impression: [...] Pat. Name:Heidy JONES Date:07/27/2024 12:41pm Pat. NO: [id number] MD:ЕЛЕНА VARGAS [facility]Teresa Guardado RDMS :1995Age:29 ----- INDICATION ----- Screening Follow-Up CODING ----- Diagnoses Z3A.27: Weeks of gestation Z36.2: Encounter for other screeningfollow-up Procedures 62756: Ultrasound, uterus, real time withimage documentation, follow up, transabdominal approach per fetus HISTORY ----- OB History 2. Para 1 METHOD ----- Transabdominal ultrasound examination ----- Osuna . Number of fetuses: 1 DATING ----- Cycle:regular cycle GA by prior [id number] w + 5 d FUNMI by prior [...] 2 lb 11 oz EFW by Hadlock (SIA-US-VK-FL) Head / Face / Neck Biometry: On Line Csr 3.4mm Extremities / Bony Struc Biometry: FL [...] and date of were verified by the punchboard filling machine operator prior tothe exam IMPRESSION ----- Impression: Osuna [...] 14+ WKS SINGLE GEST (06/08/2024 10:51 AM HR CLERK) Anatomical Region Laterality Modality Pelvis Ultrasound 06/08/2024 10:0 9 AM HR CLERK Narrative 06/08/2024 11:05 AM HR CLERK STL BASIC ----- Pat. Name: FABI JONES Study Date: 06/08/2024 10:09am Pat. NO: [id number] Referring MD: ЕЛЕНА VARGAS MD Site: [place] [employer]: Teresa Guardado RDMS : 1995 Age: 29 ----- INDICATION ----- Anatomy Survey pt states normal genetic testing CODING ----- Diagnoses Z3A.20: Weeks of gestation Z36.3: Encounter for screening for malformations Procedures 23250: Ultrasound, uterus, real time with image documentation, [...] 0 lb 13 oz EFW by Hadlock ([id number]-FL) Head / Face / Neck Biometry: On Line Csr 5.8 mm CM 2.9 mm 2% Nicomonalisaides Outer IOD 31.1 mm 20w 0d 14% [...] view. RVOT view. LVOT view. 3-vessel view. 7-hsxgvm-skzlvhz view. Situs. Aortic arch view. Ductal arch [...] and date of were confirmed by the punchboard filling machine operator prior to the exam IMPRESSION ----- Osuna [...] Pat. Name:Heidy JONES Date:06/08/2024 10:09am Pat. NO: [id number] MD:ЕЛЕНА VARGAS MD [facility]Teresa Guardado RDMS :1995Age:29 ----- INDICATION ----- Anatomy Survey pt states normalgenetic testing CODING ----- Diagnoses Z3A.20: Weeks of gestation Z36.3: Encounter for screening formalformations Procedures 67044: Ultrasound, uterus, real time withimage documentation, and [...] dating:based on stated FUNMI GA by prior [id number] w + 5 d FUNMI by prior [...] 0 lb 13 oz EFW by Hadlock (CYL-LU-HT-FL) Head / Face / Neck Biometry: On Line Csr 5.8 mm CM 2.9 mm 2%Nicolaides Outer [...] 4-chamber view. RVOT view. LVOT view. 3-vesselview. 6-wkbhzk-wzvdecr view. Situs. Aortic arch view. Ductal arch [...] and date of were confirmed by the punchboard filling machine operator priorto the exam IMPRESSION ----- Osuna @ [...] Res ult from Last 3 Months Insurance [facility] PLAN MEDICAID
--- OUTSIDE RECORDS SUMMARY | 2024-08-21 16:08 | XMS_ITS ---
Care Plan - [facility] Created on: August 21, 2024 ARACELIS HAMEED : 1995 Sex: Female Author Organization [facility] Address [address] [place] [address] Phone Care Team Providers Care Director Of Rehabilitation Name Role Phone Unavailable Unavailable Unavailable
--- OUTSIDE RECORDS SUMMARY | 2024-08-21 16:08 | XMS_ITS | Clinical Summary ---
Author Organization [facility] Address [address] [place] [address] Phone Care Team Providers Care Computer Support Analyst Name Role Phone Unavailable Unavailable Unavailable Reason for Visit and Chief Complaint BEHAVIORAL HEALTH INTEGRATION ESTABLISHED Plan of Treatment No Plan of Treatment Recorded Assessments Includes: Assessments from this encounter Findings - Adjustment disorder - Last Documented On 11/28/2023 11:27AM ; [facility] Medical Equipment - Implanted Devices Includes: [...] Provider Service Location Service Date CLINIC VISIT [facility] (CLINICAL FLOOR INSPECTOR) T1040 Adjustment disorder, unspecified CHAD BENEDICTW [facility]- 11/28/2023 Last Documented On 4 2:33PM ; [facility] PSYCHIATRIC DIAGNOSTIC EVALUATION (CLINICAL FLOOR INSPECTOR) 82905 Adjustment disorder, unspecified CHAD URIBE LCSW [facility]- 11/28/2023 Last Documented On 4 2:33PM ; [facility] Medical History Includes: Medical History addressed during this encounter No Medical History Recorded Family History Includes: Family History addressed during this encounter Description Last Updated Mother's side: anxietyFather 's side: anxiety, depression, PTSD, BPD, substance abuse 11/28/2023 Last Documented On 4 11:04AM ; [facility] Review of Systems Includes: Review of [...] Diagnosis BEHAVIORAL HEALTH INTEGRATION ESTABLISHED 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 [facility]- 11/28/19 24 10:42AM 11:28AM Adjustment Disorder Insurance Includes: Active Insurance Policies Plan Name Member ID Group # Subscriber Relationship Effect tatiana Dates 1 - [facility] [id number] ARACELIS HAMEED Self Clinical Notes Includes: Clinical Notes from this encounter * Progress note Date Encounter Last Documented by 11/28/2023 BEHAVIORAL HEALTH IN TEGRATION ESTABLISHED Last documented on 11/28/2023; 11:27 AM, CHAD URIBE [facility]; [facility] Reason For Visit Initial Assessment Assessment - Adjustment disorder Physical Findings Psychiatric: Psychiatric: Value PHQ9 score: 1 - PHQ9 score: Psychiatric: Value CLIFF 7 score: 3 - CLIFF 7 score: Physician's Services: - Screening for adult depression: impression and score [place]-Suicide Severity Rating Scale Score: 0 Jonathan Wallace [...] cats, 1 dog, Milady User Defined 18 Congregation User Defined 14 Client shared goals for therapy include: 1) live a more peaceful life 2) process trauma and core beliefs Bottom of Document Time Start: 10:45 a.m. Time End: 11:24 a.m. Next Appt for: 12/22 at 3:30 p.m.
--- OUTSIDE RECORDS SUMMARY | 2024-08-21 16:08 | XMS_ITS | Continuity of Care Document ---
Author Organization [employer] Address [address] [address] Phone Care Team Providers Care Bronc Buster Name Role Phone Odinets DRAY TRUCK DRIVER-CAn Unavailable Unavaila ble Allergies, Adverse Reactions, Alerts [...] Diagnoses Date Provider Providers Copied on Encounter [facility] on, [address] [place] [address], [id number] , [place] tel:[phone] [facility] No Information [phone] Odinets Rok[place]. [address], [place], [place], [id number], [place]. tel:[phone] [facility] on, [address] [place] [address], [id number] , [place] tel:[phone] [facility] No Information 8 0 [employer] [place]. [address], [place], [place], [id number], [place]. tel:[phone] OFFICE/OUTPA TIENT VISIT, EST [facility] on, [address] [place] [address], [id number] , [place] tel:[phone] [facility] Thyroid problems (chief complaint) Body mass index (BMI) 26.0-26.9, adultHypothyroid ism, unspecifiedFatig ueAnemiaAbnormal weight gain 7202 0 [employer] [place]. [address], [place], [place], [id number], [place]. tel:[phone] OFFICE/OUTPA TIENT VISIT, EST [facility] on, [address] [place] [address], [id number] , [place] tel:[phone] [facility] Cold symptoms (chief complaint) ChillsAcute nasopharyngitis [common cold]Cough No Information Referring Provider: Kennedydave Li, [address] [place], [place] [address] [id number] [address]OR, [place], [address] . tel:[phone] OFFICE/OUTPA TIENT VISIT, [facility] on, [address] [place] [address], [place], [place], [id number] , tel:[phone] [facility] back pain (chief complaint)T hyroid problems (chief complaint) Body mass index (BMI) 25.0-25.9, adultHypothyroid ismBack pain Feb-3 No Information Referring Provider: [facility] Carolyn Li, [address] [place] [id number], [address] . tel:[phone] OFFICE/OUTPA TIENT VISIT, [facility] on, [address] [place] [address], [place], [place], [id number] , tel:[phone] [facility] Chest discomfort (chief complaint)R efrain (chief complaint)T hyroid problems (chief complaint) Body mass index (BMI) 27.0-27.9, adultAnterior chest-wall painHypothyroidi smFollicular disorder No Information Referring Provider: Kennedydave Li, [address] [place] [id number], [address] . tel:[phone] OFFICE/OUTPA TIENT VISIT, [facility] on, [address] [place] [address], [id number] , tel:[phone] [facility] est a pcp (chief complaint)T hyroid problems (chief complaint) Body mass index (BMI) 28.0-28.9, adultHypothyroid ismAbnormal weight gainEncounter for immunizationDiet yaquelin counseling No Information Referring Provider: [employer] [facility], [facility] [place] [id number] [address], [place], [address] . tel:[phone] Family History Family Member Type Diagnosis Age [...] Of Treatment Date Type Action Status Goal PAP. Due on due Goal Tdap due Goal Influenza vaccine. Due on due Goal Pap/HPV testing. Due on due Goal Depression screening. Due on due Goal Lipid panel. Due on due Goal Influenza vaccine. Due on due Goal Tdap due Goal Depression screening. Due on due Goal Lipid panel. Due on 020 due Goal PAP. Due on due Goal Pap/HPV testing. Due on due Goal Depression screening. Due on due Goal Pap/HPV testing. Due on due Goal Lipid panel. Due on 020 due Goal Tdap due Goal PAP. Due on due Goal Lifestyle education regardin g diet completed Goal CMP. Due on due Goal Lipid panel. Due on 019 due Goal Depression screening. Due on due Goal Influenza vaccine. Due on Oc due Goal Tdap due Goal PAP. Due on due Goal Pap/HPV testing. Due on due Goal Lipid panel. Due on 019 due Goal MICROALBUMIN, SEMIQUANT. Due on due Goal Influenza vaccine. Due on Se due Goal Tdap due Goal Pap/HPV testing. Due on due Goal Depression screening. Due on due Goal PAP. Due on due Goal Lifestyle education regardin g diet completed Goal PAP. Due on due Goal Depression screening. Due on due Goal Pap/HPV testing. Due on due Goal Tdap due Goal Lifestyle education regardin g diet completed Goal PAP. Due on due Goal Tdap [...] aggravated by twisting.The patient denies relieving factors. Rash The patient pres ents for Rash. [...] changes. Risk factors include age and female. Chest discomfort The patient pre sents with a complaint of Chest discomfort. The symptoms began 11 days ago and began suddenly. The patient denies chest discomfort, chest pain, diaphoresis, dyspnea, fatigue, nausea, palpitations and vomiting. Relevant history for this patient excludes tobacco use. The symptoms are aggravated by position and movement. The patient denies any abdominal pain, dysphagia or headache. est a pcp The symptoms are reported as being mild. The symptoms occur daily. She states the symptoms are acute. Here to establish care. 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 Thyroid problems The severity of the problem is mild. The problem has not changed. Presenting symptoms include fatigue and weight gain. Presenting symptoms do not include dysphagia, insomnia, irregular menses, rapid heart beat and skin and nail changes. Risk factors include age and female. Additional information: Reports TSH 8.58 at routing equipment tender last week. Will request records. Functional Status Date Functional Assessmen t No Information Instructions Date Instruction Additional Infor ludmiladee Giving encouragement to exercise Related to Body mass index (BMI) 26.0-26.9, adult Lifestyle education regarding di et Related to Body mass index (BMI) 26.0-26.9, adult Increase fluidsRestO TC cold medsTylenol/Ibuprofen as needed for feverRTC if no better Related to Acute nasopharyngitis [common cold] Healthy diet and exercise Relate d to Body mass index (BMI) 25.0-25.9, adult Rest, Ice/Heat thera pyNSAIDs, robaxin prnRTC if no better Related to Back pain RTC 6 months Related to Hypot hyroidism Giving encouragement to exercise Related to Body [...]
--- OUTSIDE RECORDS SUMMARY | 2024-08-21 16:08 | XMS_ITS | Continuity of Care Document ---
Author Organization [employer] Address [address] [place] [address] Phone Care Team Providers Care Wood Scrap Handler Name Role Phone Syed Jordan PhD Unavailable Unavailable Procedures Procedure Date Alcohol/Subs Interv 15-30 Min 1 As per patient privacy policy some of the clinical information may not be visible. Advance Directives Directive Yes / No Effective Date File Name No Information Encounters Encounter Description Practice Location Reason(s) For Visit Diagnoses Date Provider Providers Copied on Encounter [facility], [address] [place] [place], [id number] tel:[phone] [facility] No Information 1 Nikki Lynch. [address] [facility], [address], [place], [address]. tel:[phone] [facility], [address] [place], [place], [id number] tel:[phone] [facility] Adjustment disorder with anxious moodOther [facility] 1 No Information [facility], [address] [place] [address] [place] [place], [id number] tel:[phone] [facility] Adjustment disorder with anxious moodOther [facility] 1 No Information [facility], [address], [id number] tel:[phone] [facility] Adjustment disorder with anxious moodOther [facility] 1 No Information As per patient privacy policy some of the clinical information may not be visible. Family History Family Member Type Diagnosis Age At Onset No Information Payers Payer name Insurance type Covered alliance party ID Authoriza tion(s) No Information Social [...]
--- OUTSIDE RECORDS SUMMARY | 2024-08-21 16:09 | XMS_ITS | Data Portability ---
[facility]ST[facility] Carlos Donnelly Address [address] [place] [address] Care Team Providers Care Ethologist Name Role Phone CHRISTELLE PEREZ Primary Care Provider [phone] CLEMENT NEWMAN Watch Crystal Molder [phone] Assessment No assessment recorded. Plan of Treatment Reminders Order Date Submit Date Provider Last Modified By Organization Details Last Modified Time Details Appointments None record ed. Lab CBC 2022 023 mickieri [facility], [address] [place] [address], [address], [place], [address], 3 17:03:49 TSH + free T4, serum 2022 023 [place], [address] [place] [address], [address], [place], [address], 15:09:55 thyroi d peroxi dase (tpo) Ab, serum 2022 023 [place] [facility], [address] [place] [address], [address], [place], [address], 3 15:09:56 PPD (purif ied protei n deriva tive), skin test 2022 023 [facility] In-Office Order, Internal Use Only DO Not Attach Compendium DO Not Attach Compendium, Do Not Delete/merge, 98663 3 10:20:47 Referral genera l zariao n referr al 2023 024 [facility], [address], [place], [address], 4 14:03:25 Procedures None record ed. Surgeries None record ed. Imaging None record ed. Medication Orders levoth yroxin e 75 mcg tablet 2022 024 [id number], [address], [place], [place], [id number], 4 13:04:38 cetiri zine 10 mg tablet 2022 023 lfullerrn Not available 4 13:04:16 Benadr yl 25 mg capsul e 2022 023 bbetancourtma Not available 3 14:18:41 ibupro fen 800 mg tablet 2022 023 [email or web address] Not available 3 14:18:49 Tubers ol 5 tub. unit/0 .1 mL intrad ermal inject ion soluti on 2022 023 [email or web address] Not available 3 14:18:55 levoth yroxin e 75 mcg tablet 2022 023 haley [id number], [address], [place], [place], [id number], 4 13:04:27 sertra line 50 mg tablet 2022 023 [facility], [address], [place], [place], [id number], 3 14:19:12 Zithro max Z-Tye 250 mg tablet 2021 022 veronica [facility]31122, [address] [place], [id number], 12:31:34 Patient TargetsNo targets recorded. Patient Instructions Encounter Date Encounter Id Patient Instructions Last Modified By Organization Details Last Modified Time 07/26/2022 [id number] learning about tuberculosis (TB) yarauz Not available [...] medication yarauz Not available 07/26/2022 12:39:22 03/25/2023 [id number] learning about healthy weight yarauz Not available [...] medication veronica Not available 03/25/2023 14:36:49 12/27/2023 [id number] learning about healthy weight yajose Not available [...] DO Not Attach Compendium, Do Not Delete/merge, [id number] 07/26/2022 12:30:58 03/25/2003/26/2023 TSH+F REE T4 TSH 2.570 uIU/m L 0.450- 4.500 Not Available [facility] ([facility]) [address] [facility], [place], [address], 03/26/2023 15:09:55 03/25/2003/26/2023 TSH+F REE T4 T4,free(dire ct) 1.25 NG/dL 0.82-1 .77 Not Available [facility] ([facility]) [address] [facility], [place], [address], 03/26/2023 15:09:55 03/25/20 23 03/26/2023 THYRO ID ANTIB ODIES thyroid peroxidase (tpo) Ab 294 IU/mL 0-34 above high normal Not Available [facility] ([facility]) [address] [facility], [place], [address], 03/26/2023 15:09:56 03/25/20 23 03/26/2023 THYRO ID ANTIB ODIES thyroglobuli n antibody <1.0 IU/mL 0.0-0. 9 Thyro globu chele Antib deb measu red by Beckm an Coult er Metho dolog y Not Available [facility] ([facility]) [address] [facility], [place], [address], 03/26/2023 15:09:56 03/06/20 24 03/06/2024 US, obste tric, limit ed No observ ation record ed. [facility] [address], [place], [address], 03/09/2024 11:28:01 Result Notes None recorded. Problems Name Problem SNOMED Code Status Onset Date Resolution Date Notes Provider Name and Address Organization Details Recorded Time Hypothyr oidism 98520956 Active 2021 Florina Bar rosa, [place] - [facility] 4 10:51:11 Obsessiv e-compul sive disorder 439379101 Active 2021 Florina Dinero [place], [place] [facility] 4 10:51:11 Vitamin D deficien cy 04766491 Active 2021 Florina Bar [place] [facility] 4 10:51:11 Body mass index 25-29 - overweig ht 731425791 Active 2021 Florina Bar [place] [facility] 4 10:51:11 Body mass index 30+ - obesity 001555514 Active 2022 ACE Lockhart Attn: Tony saeed,[address] [facility], [place], [address], [facility] 4 13:23:26 Increase d frequenc y of urinatio n 625323016 Completed 12/27/2023 Removal Reason: resolved Christlele Perez [facility]- Attn: Accountin g,[address], [place], [address], [facility] 4 13:23:35 Urinary tract infectio us disease 82529934 Completed 12/27/2023 Removal Reason: resolved Christelle Perez [facility]- Attn: Accountin g,[address], [place], [address], [facility] 4 13:23:43 Problem Notes None recorded. Procedures Surgical History Date Name Laterality Status Provider Name and Address Organization Details Recorded Time 09/16/2023 Date of Last Pap Smear completed Venus Gomes RN [facility] 12/27/2023 13:05:44 Imaging Results Imaging Date Name Status LastModified by Organiz ation Details LastModified Time 03/06/2024 US, obstetric, limited completed [facility] [address], [place], [address], 03/09/2024 11:28:01 Procedure Notes None recorded. Medical Equipment None Reported. Allergies Allergen ID Allergen Name Allergen Category Reaction Reaction Severity Criticality Documentation Date Start Date Code Code System Note Provider Name and Address Organization Details Recorded Time 080710 Product containin g penicilli n (product) medicatio n hives Not available high 03/28/2022 65200 8001 SNOMED Not Available Not Available Not Available 54770 Penicilli n Not available hives Not available Not available 11/26/2014 73061 RxNorm Not Available Not Available Not Available [...] Updated DateTime 06/06/2022 157.48 cm 28.3 kg/m2 28357.[address] MA [facility] 06/06/2022 11:49:06 Date Recorded Body height Body mass index (BMI) Body weight Oxygen saturation Oxygen saturation in Arterial blood by Pulse oximetry Heart rate Body temperature Systolic blood pressure Diastolic blood pressure Provider Name and Address Organization Details Last Updated DateTime 3 157.48 cm 30.5 kg/m2 80341.5 2 g 98 % 98 % 74 /min 97.8 [degF] 100 mm[Hg] 78 mm[Hg] Lesly shaw [place] - [facility] 12:11:55 Date Recorded Body height Body mass index (BMI) Body weight Provider Name and Address Organization Details Last Updated DateTime 03/01/2023 157.48 cm 28.3 kg/m2 64437.[address] MA [facility] 03/01/2023 14:21:59 Date Recorded Body height Body mass index (BMI) Body weight Oxygen saturation Oxygen saturation in Arterial blood by Pulse oximetry Heart rate Body temperature Systolic blood pressure Diastolic blood pressure Provider Name and Address Organization Details Last Updated DateTime 3 157.48 cm 30 kg/m2 86490.5 5 g 97 % 97 % 98 /min 98.6 [degF] 110 mm[Hg] 80 mm[Hg] Lesly shaw MA [facility] 3 14:20:38 Date Recorded Body height Body mass index (BMI) Body weight Heart rate Body temperature Systolic blood pressure Diastolic blood pressure Provider Name and Address Organization Details Last Updated DateTime 4 157.48 cm 29.6 kg/m2 44938.5 6 g 76 /min 98.6 [degF] 110 mm[Hg] 76 mm[Hg] Venus Gomes RN [place] - [facility] 4 13:08:32 Social History Question Answer Notes LastModified by Organizat ion Details LastModified Time Tobacco Smoking Status Never Smoker Lesly Soto MA null, [facility] 03/28/2022 15:04:59 What Is Your Level Of [...] Anxious, Or Unable To Sleep At Night)? [id number] Information not available 03/28/2022 Do You Use [...] Problems Y Kidney or Bladder Problems N Lung Disease N Depression N GI Problems N Acne N Breast Problem N Eating Disorder N Anemia N Anesthesia Complications N Headaches/Migraines N Ovarian Cancer N Diabetes N Anxiety Disorder N Blood Transfusions N Arthritis N Polyps [...] mL dose 07/18/2021 completed Lesly Soto MA [facility], [place] - [facility] 03/28/2022 15:08:41 Past Encounters Encounter ID Performer Location Encounter Start Date Encounter Closed Date Diagnosis/Indication Diagnosis SNOMED-CT Code Diagnosis ICD10 Code Diagnosis Note [id number] Florina Quintero ([employer]) [address] [place] [address] 11/26/2014 16:01:21 11/26/2014 16:48:30 IUD check 093489762 IUD in place. Sample OCPs given to prevent period during her wedding. [id number] Florina Quintero ([employer]) [address] [place] [address] 12/29/2014 11:34:58 12/29/2014 13:21:30 Increased frequency of urination 577184449 Urinary tr act infectious disease 46702688 UA positive, dwp. Prevention of UTIs discussed. Rx sent to pharmacy. [id number] Florina Quintero ([employer]) [address] [place] [address] 04/01/2015 13:53:51 04/01/2015 15:27:00 Vaginal discharge 262417556 N89.8 Vaginal discharge appears completely normal, dwp. Vaginal culture sent. Will call pt. if abnormal. [id number] Israel Linda MD [facility] [address] [address] 03/28/2022 14:36:16 03/29/2022 15:57:02 Adult health examination 683941511 Z00.00 27 y/o WF L2 presents for general check up. The patient delivered healthy baby girl 5 months ago. She reports history of hypothyroi dism and vitamin d def. No concerns at this time. Body mass index 25-29 - overweight 465745873 Z68.27 BMI 27 Hypothyroidism 84776200 E03.9 Dx in 2019Taking Levothyrox ine 75mcg daily Vitamin D deficiency 347 00056 E55.9 took Vitamin D2 71382 IUNeeds recheck Obsessive- compulsive disorder 374998845 F42.9 on sertraline controlled Hyperlipid emia screening 620376554 Z13.220 Influenza vaccination declined 773739749 Z28.21 Mental hea lt screening 684703400 Z13.39 CLIFF-7 negative Depression screening 171 829164 Z13.31 PHQ2-9 negative [id number] Suzanna Byrd [facility] ([address]) [address] [place] [address] 06/06/2022 11:46:49 06/07/2022 14:19:11 Exposure to streptococcal pharyngitis 4501863661 105 Z20.818 will treat based off reported exposurefu as neededrepo rt to ED if s/s worsenwarm salt water gargles; trash toothbrush 48h p ABThand hygeine and staying away from others encouraged Do not share food or drink [id number] Christelle Perez [facility] [address] [place] [address] 07/26/2022 11:26:54 07/30/2022 14:48:28 Body mass index 30+ - obesity 564886836 Z68.30 BMI 30.5Health y Weight: {{4'10= 91-118 [...] lbs 6'4= 156-204 lbs}} Tuberculos is screening 520315495 Z11.1 return to clinic in 48-72 hours for ppd reading Hypothyroidism 04207366 E03.9 Dx in 2019Taking Levothyrox ine 75mcg daily Obsessive- compulsive disorder 115419326 F42.9 on sertraline controlled likes Effexor better but has been bf cant take it [id number] Suzanna Byrd [facility] ([address]) [address] [place] [address] 03/01/2023 14:17:52 03/08/2023 16:31:29 Pharyngitis 448068892 J02.9 zyrtec in the day and benadryl at HShydratio n and rest encouraged fu w/ PCP in 1 weekreport to ED if s/s worsen or if you experience CP, SOB, STINSON or the like [id number] Christelle Perez, [facility] [address] [place] [address] 03/25/2023 14:11:46 03/26/2023 11:49:56 Body mass index 25-29 - overweight 642925028 Z68.27 BMI 30Healthy Weight: {{4'10= 91-118 lbs 4'11= 94-123 lbs 5'= 97-127 lbs 5'1= 100-131 lbs 5'2= 104-135* 5 '3= 107-140 lbs 5'4= 110-144 lbs 5'5= 115-149 lbs 5'6= 118-154 lbs 5'7= 121-158 lbs 5'8= 125-163 lbs 5'9= 128-168 lbs 5'10= 132-173 lbs 5'11= 136-178 lbs 6'= 140-183 lbs 6'1= 144-188 lbs 6'2= 148-193 lbs 6'3= 152-199 lbs 6'4= 156-204 lbs}} Hypothyroidism 56675632 E03.9 Dx in 2018Taking Levothyrox ine 75mcg daily Vitamin D deficiency 347 06879 E55.9 took Vitamin D2 89634 IU03/28/20 22 Vitamin D 35.4 Obsessive- compulsive disorder 081118426 F42.9 stablepati ent weaned herself off sertraline 50mg 6 months ago Body mass index 30+ - obesity 091421693 Z68.30 BMI 30.Healthy Weight: {{4'10= 91-118 lbs 4'11= 94-123 lbs 5'= 97-127 lbs 5'1= 100-131 lbs 5'2= 104-135* 5 '3= 107-140 lbs 5'4= 110-144 lbs 5'5= 115-149 lbs 5'6= 118-154 lbs 5'7= 121-158 lbs 5'8= 125-163 lbs 5'9= 128-168 lbs 5'10= 132-173 lbs 5'11= 136-178 lbs 6'= 140-183 lbs 6'1= 144-188 lbs 6'2= 148-193 lbs 6'3= 152-199 lbs 6'4= 156-204 lbs}} Mental hea [facility] screening 254743536 Z13.39 CLIFF-7 negative Depression screening 171 959124 Z13.31 PHQ2-9 negative History of anemia 417244 002 Z86.2 [id number] Christelle Perez, [facility] [address] [place] [address] 12/27/2023 12:35:13 01/01/2024 13:20:00 Lesion of scalp 0844396805 00 L98.9 top of scalp 2.5 cm soft massL posterior scalp 1cm soft mass Body mass index 25-29 - overweight 738476195 Z68.27 BMI 29.6Health y Weight: {{4'10= 91-118 [...] 6'4= 156-204 lbs}} Sebaceous cyst of skin 644825230 L72.3 top of scalp 2.5 cm soft massL posterior scalp 1cm soft mass Depression screening 171 542849 Z13.31 PHQ2-9 negative Health Concerns Section Related Observation LastModified by Organization Detai ls LastModified Time None Recorded Concern Status LastModified by Organization Details LastModified Time None Recorded Advance Directives Directive None Recorded Payers Encounter Date Sequence Insurance Name Policy Number Policy Quintanilla Covered Member ID Quintanilla Member ID Guarantor Name 06/06/2022 1 [facility] ON OR AFTER 12/15/20 (MEDICAID REPLACEMENT - HMO) Fabi Karen [id number] Fabi Karen 07/26/2022 1 [facility] ON OR AFTER 12/15/20 (MEDICAID REPLACEMENT - HMO) Fabi Karen [id number] Fabi Karen 03/01/2023 2 *SELF PAY* Sa rah Karen 03/25/2023 2 *SELF PAY* Sa rah Karen 12/27/2023 2 *SELF PAY* Sa rah Karen 12/27/2023 1 [facility] ON OR AFTER 12/15/20 (MEDICAID REPLACEMENT - HMO) Fabi Karen [id number] Fabi Karen Notes Date Note Type Note [...] CP, SOB, STINSON, diarrhea, constipation and dysuria. ACE Ackerman Attn: Accounting, [address] [place], [address], [place] [facility] 06/06/2022 14:19:36 07/26/19 23 text/htm [...] her hypothyroidism and OCD/anxiety medication from her line palletizer/ob. However, voices her provider has asked her [...] was switched to Sertraline 50mg daily by [facility]. Denies any problems with it. States eventually wants to return to effexor. She doesnt see a psychiatrist. Christelle Perez, [employer]- Attn: Accounting, [address] [place], [address], [facility] 07/27/2022 17:47:12 03/01/20 23 text/htm [...] test. COVID-19 vaccine current per pt. Suzanna Rochelle, PRODUCTION UNDERWRITER-BC Attn: Accounting, [address] [place], [address], [facility] 03/07/2023 15:44:12 03/25/20 23 text/htm l Anxiety/DepressionReported [...] her hypothyroidism and OCD/anxiety medication from her line palletizer/ob. However, voices her provider has asked her [...] was switched to Sertraline 50mg daily by [facility] [employer]. She doesnt see a psychiatrist. She stopped sertraline 50mg 6 months ago she weaned herself off. She is doing fine. Reports has history of anemia for which she wants to get checked today. MIKE Lockhart Attn: Accounting, [address] [place], [address], [facility] 03/25/2023 15:51:48 12/27/19 24 text/htm l 28 y/o WF presents for referral to general surgeon for removal of two lesions on scalp she has had for a few years. She denies any pain. She would like to go to surgeon in [place]. ACE Lockhart Attn: Accounting, [address] [place], [address], [facility] 12/27/2023 13:32:12 OBGyn Episode Ob Episode Information Episode Created Date Number of Fetuses Patient Bloodtype Patient rh Status Prepregnancy Weight lbs Domestic Partner Domestic Partner Phone Father Name International Project Manager Status 12/27/19 24 1 CLOSED Fetus Data First Name Last Name Admitted to NICU Weight (g) Sex Living Outcome Pediatric Complications Fetus ID Race Codes Race Delivery Type , Spontane ous [id number] David Calculation Initial David Date Initial Exam [...] Domestic Partner Domestic Partner Phone Father Name International Project Manager Status 03/28/20 22 1 CLOSED Fetus Data First Name Last Name Admitted to NICU Weight (g) Sex Living Outcome Pediatric Complications Fetus ID Race Codes Race Delivery Type F Full Term [id number] Vaginal David Calculation Initial David Date Initial Exam Date Initial Exam Provider Initial Ultrasound Date Last Menstrual Period Date Ultra Sound Weeks Gestation 0 Eighteen To Twenty Week David Update Ultra Sound Date Fundal Height At Umbil Quickening Date Ultra Sound Latest Weeks Gestation Final Dvaid Confirmed By Final David Confirmed Date Final [...] Domestic Partner Domestic Partner Phone Father Name International Project Manager Status 03/28/20 22 1 CLOSED Fetus Data First Name Last Name Admitted to NICU Weight (g) Sex Living Outcome Pediatric Complications Fetus ID Race Codes Race Delivery Type F Full Term [id number] Vaginal David Calculation Initial David Date Initial [...]
--- OUTSIDE RECORDS SUMMARY | 2024-08-21 16:09 | XMS_ITS | Encounter Summary ---
Author Organization [facility] Address 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
--- NOTE | 2024-08-21 16:37 | OBADM ---
This patient, Fabi Jones, admitted to the OB room OB Post 116 for observation. Patient/family oriented to hospital policies and general routines including ID bracelet, bed and alarms, visiting hours, pain management, procedures, bathroom and other care routines, personal items, smoking policy, room service/diet, and visiting hours. Patient/Family are encouraged to report perceived risks to care and to ask questions if they do not understand what they are told or what they should do.
[2024-08-21 16:49] VITALS: BMI 33.0
[2024-08-21 17:11] LABS: Add Urine Microscopic? YES; Appearance Urine Clear (Clear); Bacteria Urine None Seen /hpf; Bilirubin Urine Negative (Negative); Blood Urine Negative (Negative); Color Urine Yellow (Yellow); Glucose Urine UA Negative (Negative); Ketones Urine Negative (Negative); Leukocyte Esterase Ur Trace LEU/UL (Negative); Nitrate Urine Negative (Negative); Non Pathogenic Casts 0-2; Protein Urine Negative (Negative); RBC Urine 0-2 /hpf (0-2); Specific Grav Ur 1.005 (1.001-1.035); Squamous Epithelial Cell Urine Many /hpf (Few); Urobilinogen Urine 0.2 mg/dL (<2.0); WBC Urine 0-5 /hpf (0-3)
--- NOTE | 2024-08-24 12:44 | P.PNOB_ITS ---
OB - Triage/Final Diagnosis Visit Information Reason for evaluation: threatened labor Comments/Additional reasons for admission: I have assessed the risk for this patient, Fabi Jones, and determined that she would benefit from observation care. Evaluation Laboratory results: Laboratory Tests 08/21/24 17:02 Urine Color Yellow Urine Appearance Clear Urine pH 8.0 Ur Specific Pierson 1.005 Urine Protein Negative Urine Glucose (UA) Negative Urine Ketones Negative Ur Blood (Man) Negative Urine Nitrate Negative Urine Bilirubin Negative Urine Urobilinogen 0.2 Leukocyte Esterase Rfl Trace H Urine RBC 0-2 Urine WBC 0-5 Ur Squamous Epith Cells Many H Urine Bacteria None seen Urine Casts 0-2
== END 2024-08-21 18:44 | disposition home or self-care (01) ==
PROVIDERS: Obstetrics & Gynecology Gynecology; Admitting Provider Obstetrics & Gynecology; PCP Registered Nurse; Visit Provider Obstetrics & Gynecology
DX: O47.03 False labor before 37 completed weeks of gestation, third trimester (principal); Z3A.31 31 weeks gestation of pregnancy
CPT/HCPCS: 81001; G0378; G0379

== ENCOUNTER 2024-10-08 10:33 | Outpatient (CLI) | payer OTHER, SELFPAY ==
--- OUTSIDE RECORDS SUMMARY | 2024-10-08 12:54 | XMS_ITS | Clinical Summary ---
Author Organization [facility] Address [address] [place] [phone] Phone Care Team Providers Care Interpreter Deaf Name Role Phone Unavailable Primary Care Provider Unavailabl e Encounters Date Type Department Care Team Description 09/15/2024 External Device Data STL ABSTRACTION Provider, Abstract 08/24/2024 10:00 AM CDT - 08/24/2024 11:59 PM CDT Hospital Encounter [facility] 2022 Cruz[address] Xiao [address] [place] [phone] Shama Chaudhry MD Discharge Disposition: Home or Self Care 08/22/2024 External Device Data STL ABSTRACTION Provider, Abstract 08/21/2024 External Device Data STL ABSTRACTION Provider, Abstract 08/19/2024 External Device Data STL ABSTRACTION Provider, Abstract 08/05/2024 External Device Data STL ABSTRACTION Provider, Abstract 07/27/2024 12:37 PM SHIPPING CLERK - 07/27/2024 11:59 PM SHIPPING CLERK Hospital Encounter [facility] Cruzito Xiao [address] [place] [phone] Елена Vargas MD Discharge Disposition: Home or Self Care 07/14/2024 External Device Data STL ABSTRACTION Provider, Abstract from Last 3 Months Social History Tobacco Use Types Packs/Day Years Used Date Smoking Tobacco: Never Assessed Comments Unknown Sex and Gender Information Value Date Recorded Sex Assigned at Not on file Legal Sex Female 4:19 PM SHIPPING CLERK Gender Identity Not on file Sexual Orientation Not on file Plan of Treatment Health Maintenance Due Date Last Done Comments HEPATITIS B VACCINES (1 of 3 - 19+ 3-dose series) 2014 CERVICAL CANCER SCREENING 02/17/2016 HPV/Cotest (21-29) 02/17/2016 PAP SMEAR 02/17/2016 INFLUENZA VACCINE (#1) 2024 DTAP/TDAP/TD VACCINES (2 - T d or Tdap) 08/16/2031 08/15/2021 HPV VACCINES Aged Out No longer eligi ble based on patient's age to complete this topic Procedures Procedure Name Priority Date/Time Associated Diagnosis Comments US OB FOLLOW UP PER FETUS Routine 08/24/2024 10:40 AM CDT Encounter for other screening follow-up US OB FOLLOW UP PER FETUS Routine 07/27/2024 1:05 PM SHIPPING CLERK Encounter for ultrasound to check growth from Last 3 Months Results * US OB FOLLOW UP PER FETUS (08/24/2024 10:40 AM CDT) Only the most recent of2 resultswithin the time period is included. Anatomical Region Laterality Modality Pelvis Ultrasound 08/24/2024 9:13 AM CDT Narrative 08/24/2024 10:47 AM CDT STL FOLLOW UP ----- Pat. Name: FABI JONES Study Date: 08/24/2024 9:13am Pat. NO: [id number] Referring MD: ЕЛЕНА VARGAS MD Site: [facility] Archivist: Teresa Guardado RDMS : 1995 Age: 29 ----- INDICATION ----- Screening Follow-Up CODING ----- Diagnoses Z3A.31: Weeks of gestation Z36.2: Encounter for other screening follow-up Procedures 89924: Ultrasound, uterus, real time with image documentation, follow up, transabdominal approach per fetus HISTORY ----- OB History 2. Para 1 METHOD ----- Transabdominal ultrasound examination ----- Osuna . Number of fetuses: 1 DATING ----- Cycle: regular cycle GA by prior assessment 31 w + 5 d FUNMI by prior assessment: 10/21/2024 Ultrasound examination on: 08/24/2024 GA by U/S based upon: AC, BPD, EFW, Femur, HC GA by U/S 31 w + 1 d FUNMI by U/S: 10/25/2024 Method of dating: Restore dating from previous exam Assigned: based on stated FUNMI, selected on 06/08/2024 Assigned GA 31 w + 5 d Assigned FUNMI: 10/21/2024 BIOMETRY ----- BPD 77.0 mm 30w 6d 18% Hadlock OFD 107.4 mm 35w 3d 99% Sven HC 295.6 mm 32w 5d 38% Hadlock AC 269.3 mm 31w 0d 28% Hadlock Femur 57.8 mm 30w 2d 7% Hadlock HC / AC 1.10 70% Nicolaides Weight Calculation: EFW 1,667 g 30w 4d 18% Hadlock EFW (lb,oz) 3 lb 11 oz EFW by Hadlock ([id number]) Head / Face / Neck Biometry: Fitness And Wellness Manager 5.0 mm Extremities / Bony Struc Biometry: FL / BPD 0.75 FL / HC 0.20 FL / AC 0.21 GENERAL EVALUATION ----- Cardiac activity present. FHR 142 bpm. movements: present. Presentation: breech Placenta: Placental site: anterior Umbilical cord: Cord vessels: 3 vessel cord. Insertion site: placental insertion: normal Amniotic fluid: Amount of AF: normal amount. MVP 6.1 cm. RANDOLPH 16.1 cm. Q1 6.1 cm, Q2 5.3 cm, Q3 2.1 cm, Q4 2.6 cm ANATOMY ----- The following structures appear [...] 20% 244.8 73% 52.9 47% 1,214 62% 08/24/2024 31w 5d 77.0 18% 295.6 38% 269.3 28% 57.8 7% 1,667 18% COMMENT ----- Patient's name and date of were verified by the dam tender prior to the exam IMPRESSION ----- Osuna @ 31w 5d referred to check growth. - The biometry is consistent with dates with the EFW at the 18% percentile. - Amniotic fluid indices are within normal limits. - Limited anatomy is unremarkable including the kidneys. Further ultrasounds may be scheduled as clinically indicated. Thank you for allowing us to participate in the care of this patient. Procedure Note Soo Salazar MD - 08/24/2024 STL FOLLOW UP ----- Pat. Name:Heidy JONES Date:08/24/2024 9:13am Pat. NO: [id number] MD:ЕЛЕНА VARGAS MD [facility]Teresa Guardado RDMS :1995Age:29 ----- INDICATION ----- Screening Follow-Up CODING ----- Diagnoses Z3A.31: Weeks of gestation Z36.2: Encounter for other screeningfollow-up Procedures 61343: Ultrasound, uterus, real time withimage documentation, follow up, transabdominal approach per fetus HISTORY ----- OB History 2. Para 1 METHOD ----- Transabdominal ultrasound examination ----- Osuna . Number of fetuses: 1 DATING ----- Cycle:regular cycle GA by prior ghvrumredy25 w + 5 d FUNMI by prior assessment:10/21/2024 Ultrasound examination on:08/24/2024 GA by U/S based upon:AC, BPD, EFW, Femur, HC GA by U/S31 w + 1 d FUNMI by U/S:10/25/2024 Method of dating:Restore dating from previous exam Assigned:based on stated FUNMI, selected on 06/08/2024 Assigned GA31 w + 5 d Assigned FUNMI:10/21/2024 BIOMETRY ----- BPD 77.0 mm 30w 6d 18%Hadlock OFD 107.4 mm 35w 3d 99%Sven HC 295.6 mm 32w 5d 38%Hadlock AC 269.3 mm 31w 0d 28%Hadlock Femur 57.8 mm 30w 2d 7%Hadlock HC / AC 1.10 70%Nicolaides Weight Calculation: EFW 1,667 g 30w 4d18% Hadlock EFW (lb,oz) 3 lb 11 oz EFW by Hadlock ([id number]) Head / Face / Neck Biometry: Fitness And Wellness Manager 5.0mm Extremities / Bony Struc Biometry: FL / BPD 0.75 FL / HC 0.20 FL / AC 0.21 GENERAL EVALUATION ----- Cardiac activity present. FHR 142 bpm. movements: present.Presentation: breech Placenta: Placental site: anterior Umbilical cord: Cord vessels: 3 vessel cord. Insertion site: placentalinsertion: normal Amniotic fluid: Amount of AF: normal amount. MVP 6.1 cm. RANDOLPH 16.1 cm. Q16.1 cm, Q2 5.3 cm, Q3 2.1 cm, Q4 2.6 cm ANATOMY ----- The following structures appear [...] 255.0 20% 244.8 73%52.9 47% 1,214 62% 08/24/2024 31w 5d 77.0 18% 295.6 38% 269.3 28%57.8 7% 1,667 18% COMMENT ----- Patient's name and date of were verified by the dam tender prior tothe exam IMPRESSION ----- Osuna @ 31w 5d referred to check growth. - The biometry is consistent with dates with the EFW at the 18%percentile. - Amniotic fluid indices are within normal limits. - Limited anatomy is unremarkable including the kidneys. Further ultrasounds may be scheduled as clinically indicated. Thank you for allowing us to participate in the care of this patient. us Shama Chaudhry MD ORDERABLES Final Resul t from Last 3 Months Insurance [facility] MEDICAID
--- OUTSIDE RECORDS SUMMARY | 2024-10-08 12:54 | XMS_ITS ---
Care Plan - [facility] Created on: October 08, 2024 ARACELIS HAMEED : 1995 Sex: Female Author Organization [facility] Address [address] [place] [address] Phone Care Team Providers Care Animal Herder Name Role Phone Unavailable Unavailable Unavailable
--- OUTSIDE RECORDS SUMMARY | 2024-10-08 12:54 | XMS_ITS ---
Author Organization [facility] Address [address] [place] [address] Phone Care Team Providers Care Rapid Extractor Operator Name Role Phone Unavailable Unavailable Unavailable Plan of Treatment No Plan of Treatment Recorded Assessments Includes: Assessments for all patient encounters Findings Encounter Date Adjustment disorder BEHAVIORAL HEALTH IN TEGRATION ESTABLISHED with CHAD URIBE [facility] 11/28/2023 Last Documented On 4 11:27AM ; [facility] Medical Equipment - Implanted Devices Includes: Current and historical Devices No Medical Equipment Recorded Medications Administered Includes: Administered Medications in patient's chart No Administered Medications Recorded Results Includes: Results from 10/09/2023 through 10/08/2024 No Results Recorded For Specified Dates History of Present Illness History of Present Illness not supported for this document type No History of Present Illness Recorded Social History No Social History Recorded - Smoking Status Unknown Procedures and Surgical History Includes: Procedures from 10/09/2023 through 10/08/2024 Procedures Code Diagnosis Performing Provider Service Location Service Date CLINIC VISIT [facility] (CLINICAL INVERTED BLOCK OPERATOR) T1040 Adjustment disorder, unspecified CHAD D RONY [facility] 11/28/2023 Last Documented On 4 2:33PM ; [facility] PSYCHIATRIC DIAGNOSTIC EVALUATION (CLINICAL INVERTED BLOCK OPERATOR) 56020 Adjustment disorder, unspecified CHAD D RONY [facility] 11/28/2023 Last Documented On 4 2:33PM ; [facility] Medical History Includes: Medical History in [...] Physical Exam Recorded Encounters Includes: Encounters from 10/09/2023 through 10/08/2024 Encounter Provider Location Date Check-In Time Check-Out Time Diagnosis BEHAVIORAL HEALTH INTEGRATION ESTABLISHED CHAD URIBE ASSOCIATE QUALITY ENGINEER [facility] 11/28/19 24 10:42AM 11:28AM Adjustment Disorder Insurance Includes: Active Insurance Policies Plan Name Member ID Group # Subscriber Relationship Effect tatiana Dates 1 - [facility] [employer] [id number] ARACELIS HAMEED Self Clinical Notes Includes: Signed Clinical Notes starting from 07/06/2022 * Progress note Date Encounter Last Documented by 11/28/2023 BEHAVIORAL HEALTH IN TEGRATION ESTABLISHED Last documented on 11/28/2023; 11:27 AM, CHAD URIBE LCSW; [facility] Reason For Visit Initial Assessment Assessment - Adjustment disorder Physical Findings Psychiatric: Psychiatric: Value PHQ9 score: 1 - PHQ9 score: Psychiatric: Value CLIFF 7 score: 3 - CLIFF 7 score: Physician's Services: - Screening for adult depression: impression and score [place]-Suicide Severity Rating Scale Score: 0 Jonathan Wallace [...] a teenager My parents worked at a [employer]'s home, while I stayed home alone miscarriage [...] cats, 1 dog, Milady User Defined 18 Yarsani User Defined 14 Client shared goals for therapy include: 1) live a more peaceful life 2) process trauma and core beliefs Bottom of Document Time Start: 10:45 a.m. Time End: 11:24 a.m. Next Appt for: 12/22 at 3:30 p.m.
--- OUTSIDE RECORDS SUMMARY | 2024-10-08 12:54 | XMS_ITS | Clinical Summary ---
Author Organization [facility] Address [address] [place] [address] Phone Care Team Providers Care Lead Web Developer Name Role Phone Unavailable Unavailable Unavailable Reason for Visit and Chief Complaint BEHAVIORAL HEALTH INTEGRATION ESTABLISHED Plan of Treatment No Plan of Treatment Recorded Assessments Includes: Assessments from this encounter Findings - Adjustment disorder - Last Documented On 11/28/2023 11:27AM ; [facility] Medical Equipment - Implanted Devices Includes: Current [...] Service Location Service Date CLINIC VISIT [facility] (CLINICAL ANATOMIC PATHOLOGIST) T1040 Adjustment disorder, unspecified CHAD BENEDICTW [facility]- 11/28/2023 Last Documented On 4 2:33PM ; [facility] PSYCHIATRIC DIAGNOSTIC EVALUATION (CLINICAL ANATOMIC PATHOLOGIST) [address]121 Adjustment disorder, unspecified CHAD URIBE LCSW [facility]- 11/28/2023 Last Documented On 4 2:33PM ; [facility] Medical History Includes: Medical History addressed during this encounter No Medical History Recorded Family History Includes: Family History addressed during this encounter Description Last Updated Mother's side: anxietyFather 's side: anxiety, depression, PTSD, BPD, substance abuse 11/28/2023 Last Documented On 4 11:04AM ; [facility] Review of Systems Includes: Review [...] Diagnosis BEHAVIORAL HEALTH INTEGRATION ESTABLISHED CHAD URIBE SAUSAGE STUFFER [facility]- 11/28/19 24 10:42AM 11:28AM Adjustment Disorder Insurance Includes: Active Insurance Policies Plan Name Member ID Group # Subscriber Relationship Effect tataina Dates 1 - [facility] [id number] ARACELIS HAMEED Self Clinical Notes Includes: Clinical Notes from this encounter * Progress note Date Encounter Last Documented by 11/28/2023 BEHAVIORAL HEALTH IN TEGRATION ESTABLISHED Last documented on 11/28/2023; 11:27 AM, CHAD URIBE [facility]; [facility] Reason For Visit Initial Assessment Assessment - Adjustment disorder Physical Findings Psychiatric: Psychiatric: Value PHQ9 score: 1 - PHQ9 score: Psychiatric: Value CLIFF 7 score: 3 - CLIFF 7 score: Physician's Services: - Screening for adult depression: impression and score [place]-Suicide Severity Rating Scale Score: 0 Jonathan Wallace [...] cats, 1 dog, Milady User Defined 18 Zoroastrianism User Defined 14 Client shared goals for therapy include: 1) live a more peaceful life 2) process trauma and core beliefs Bottom of Document Time Start: 10:45 a.m. Time End: 11:24 a.m. Next Appt for: 12/22 at 3:30 p.m.
--- OUTSIDE RECORDS SUMMARY | 2024-10-08 12:55 | XMS_ITS | Continuity of Care Document ---
Author Organization [facility] Address [address] [place] [address] Phone Care Team Providers Care Bookbinder Apprentice Name Role Phone Nikki Arce, Syed Unavailable Unavailable Procedures Procedure Date Alcohol/Subs Interv 15-30 Min 1 As per patient privacy policy some of the clinical information may not be visible. Advance Directives Directive Yes / No Effective Date File Name No Information Encounters Encounter Description Practice Location Reason(s) For Visit Diagnoses Date Provider Providers Copied on Encounter [facility], [address] [place] [place], [id number] tel:[phone] [facility] No Information 1 Nikki Lynch. [address] [facility], [address], [place], [address]. tel:[phone] [facility], [address] [place], [place], [id number] tel:[phone] [facility] Adjustment disorder with anxious moodOther Specified Counseling 1 No Information [facility], [address] [place] [address] [address] [place], [place], [id number] tel:[phone] [facility] Adjustment disorder with anxious moodOther Specified Counseling 1 No Information [facility], [address] [place], [id number] tel:[phone] [facility] Adjustment disorder with anxious moodOther Specified Counseling 1 No Information As per patient privacy policy some of the clinical information may not be visible. Family History Family Member Type Diagnosis Age At Onset No Information Payers Payer name Insurance type Covered democrat [...]
--- OUTSIDE RECORDS SUMMARY | 2024-10-08 12:55 | XMS_ITS | Data Portability ---
Author Organization [facility]NESTO[facility]uan Carlos Donnelly Address [address] [place] [address] Care Team Providers Care Raise Driller Name Role Phone KAYLIN PEREZ Primary Care Provider [phone] CLEMENT NEWMAN Chinese Language Professor [phone] Assessment No assessment recorded. Plan of Treatment Reminders Order Date Submit Date Provider Last Modified By Organization Details Last Modified Time Details Appointments None record ed. Lab CBC 2022 023 mickiela [facility], [address] [place] [address], [address], [place], [address], 3 17:03:49 TSH + free T4, serum 2022 023 [facility], [address] [place] [address], [address], [place], [address], 15:09:55 thyroi d peroxi dase (tpo) Ab, serum 2022 023 [facility], [address] [place] [address], [address], [place], [address], 3 15:09:56 PPD (purif ied protei n deriva tive), skin test 2022 023 [facility] In-Office Order, Internal Use Only DO Not Attach Compendium DO Not Attach Compendium, Do Not Delete/merge, 77798 3 10:20:47 Referral genera l zariao n referr al 2023 024 [facility] - General Surgery, [address], [place], [address], 4 14:03:25 Procedures None record ed. Surgeries None record ed. Imaging None record ed. Medication Orders levoth yroxin e 75 mcg tablet 2022 024 [id number], [address], [place], [place], [id number], 4 13:04:38 cetiri zine 10 mg tablet [...] e 75 mcg tablet 2022 023 haley [facility][id number], [address], [place], [place], [id number], 4 13:04:27 sertra line 50 mg tablet 2022 023 [facility], [address], [place], [place], [id number], 3 14:19:12 Zithro max Z-Tye 250 mg tablet 2021 022 veronica [facility] #[id number], [address] [place], [id number], 12:31:34 Patient TargetsNo targets recorded. Patient Instructions Encounter Date Encounter Id Patient Instructions Last Modified By Organization Details Last Modified Time 07/26/2022 [id number] learning about tuberculosis (TB) yarauz Not available [...] medication yarauz Not available 07/26/2022 12:39:22 03/25/2023 [id number] learning about healthy weight yarauz Not available [...] medication veronica Not available 03/25/2023 14:36:49 12/27/2023 [id number] learning about healthy weight yajose Not available [...] soft mass patient wants removal Referring Physician: Kaylin Perez, Family Medicine, Encounter Date: 12/27/2023 Results Created Date Observation Date Name Description Value Unit Range Abnormal Flag Note LastModifiedBy Organization Detail LastModifiedTime 07/30/1907/30/2022 PPD (laura fied prote in deriv ative ), skin test Result Negati ve Not Available In-Office Order Internal Use Only DO Not Attach Compendium DO Not Attach Compendium, Do Not Delete/merge, [id number] 07/26/2022 12:30:58 03/25/2003/26/2023 TSH+F REE T4 TSH 2.570 uIU/m L 0.450- 4.500 Not Available [facility] ([facility]) [address], [place], [address], 03/26/2023 15:09:55 03/25/2003/26/2023 TSH+F REE T4 T4,free(dire ct) 1.25 NG/dL 0.82-1 .77 Not Available [facility] ([facility]) [address], [place], [address], 03/26/2023 15:09:55 03/25/20 23 03/26/2023 THYRO ID ANTIB ODIES thyroid peroxidase (tpo) Ab 294 IU/mL 0-34 above high normal Not Available [facility] ([facility]) [address], [place], [address], 03/26/2023 15:09:56 03/25/20 23 03/26/2023 THYRO ID ANTIB ODIES thyroglobuli n antibody <1.0 IU/mL 0.0-0. 9 Thyro globu chele Antib deb measu red by Beckm an Coult er Metho dolog y Not Available [facility] ([facility]) [address], [place], [address], 03/26/2023 15:09:56 03/06/20 24 03/06/2024 US, obste tric, limit ed No observ ation record ed. [facility] [address], [place], [address], 03/09/2024 11:28:01 Result Notes None recorded. Problems Name Problem SNOMED Code Status Onset Date Resolution Date Notes Provider Name and Address Organization Details Recorded Time Hypothyr oidism 71474204 Active 2021 Florina Bar rosa, [place] - [facility] 4 10:51:11 Obsessiv e-compul sive disorder 872934608 Active 2021 Florina Dinero [place], [place] [facility] 4 10:51:11 Vitamin D deficien cy 95572014 Active 2021 Florina Bar [place] [facility] 4 10:51:11 Body mass index 25-29 - overweig ht 736549157 Active 2021 Florina Bar [place] [facility] 4 10:51:11 Body mass index 30+ - obesity 404313114 Active 2022 ACE Lockhart Attn: Tony saeed,[address] [facility], [place], [address], [facility] 4 13:23:26 Increase d frequenc y of urinatio n 254369261 Completed 12/27/2023 Removal Reason: resolved Kaylin Perez [facility]- Attn: Accountin g,[address], [place], [address], [facility] 4 13:23:35 Urinary tract infectio us disease 37847040 Completed 12/27/2023 Removal Reason: resolved Kaylin Perez [facility]- Attn: Accountin g,[address], [place], [address], [facility] 4 13:23:43 Problem Notes None recorded. Procedures Surgical History Date Name Laterality Status Provider Name and Address Organization Details Recorded Time 09/16/2023 Date of Last Pap Smear completed Venus Gomes RN [facility] 12/27/2023 13:05:44 Imaging Results Imaging Date Name Status LastModified by Organiz ation Details LastModified Time 03/06/2024 US, obstetric, limited completed [facility] [address], [place], [address], 03/09/2024 11:28:01 Procedure Notes None recorded. Medical Equipment None Reported. Allergies Allergen ID Allergen Name Allergen Category Reaction Reaction Severity Criticality Documentation Date Start Date Code Code System Note Provider Name and Address Organization Details Recorded Time 392523 Product containin g penicilli n (product) medicatio n hives Not available high 03/28/2022 77676 8001 SNOMED Not Available Not Available Not Available 77095 Penicilli n Not available hives Not available Not available 11/26/2014 83328 RxNorm Not Available Not Available Not Available [...] Updated DateTime 06/06/2022 157.48 cm 28.3 kg/m2 77968.82 g Brianna Griggs MA [facility] 06/06/2022 11:49:06 Date Recorded Body height Body mass index (BMI) Body weight Oxygen saturation Oxygen saturation in Arterial blood by Pulse oximetry Heart rate Body temperature Systolic blood pressure Diastolic blood pressure Provider Name and Address Organization Details Last Updated DateTime 3 157.48 cm 30.5 kg/m2 36403.5 2 g 98 % 98 % 74 /min 97.8 [degF] 100 mm[Hg] 78 mm[Hg] Lesly shaw [place] - [facility] 12:11:55 Date Recorded Body height Body mass index (BMI) Body weight Provider Name and Address Organization Details Last Updated DateTime 03/01/2023 157.48 cm 28.3 kg/m2 85696.82 g Brianna Griggs MA [facility] 03/01/2023 14:21:59 Date Recorded Body height Body mass index (BMI) Body weight Oxygen saturation Oxygen saturation in Arterial blood by Pulse oximetry Heart rate Body temperature Systolic blood pressure Diastolic blood pressure Provider Name and Address Organization Details Last Updated DateTime 3 157.48 cm 30 kg/m2 23191.5 5 g 97 % 97 % 98 /min 98.6 [degF] 110 mm[Hg] 80 mm[Hg] Lesly shaw MA [facility] 3 14:20:38 Date Recorded Body height Body mass index (BMI) Body weight Heart rate Body temperature Systolic blood pressure Diastolic blood pressure Provider Name and Address Organization Details Last Updated DateTime 4 157.48 cm 29.6 kg/m2 83763.5 6 g 76 /min 98.6 [degF] 110 mm[Hg] 76 mm[Hg] Venus Gomes RN [place] - [facility] 4 13:08:32 Social History Question Answer Notes LastModified by Organizat ion Details LastModified Time Tobacco Smoking Status Never Smoker Lesly Soto MA null, [facility] 03/28/2022 15:04:59 What Is Your Level Of [...] Anxious, Or Unable To Sleep At Night)? [id number] Information not available 03/28/2022 Do You Use [...] mL dose 07/18/2021 completed Lesly Soto MA [facility], [place] - [facility] 03/28/2022 15:08:41 Past Encounters Encounter ID Performer Location Encounter Start Date Encounter Closed Date Diagnosis/Indication Diagnosis SNOMED-CT Code Diagnosis ICD10 Code Diagnosis Note [id number] Florina Quintero (REHABILITATION PROGRAM MANAGER) [address] [place] [address] 11/26/2014 16:01:21 11/26/2014 16:48:30 IUD check 978046130 IUD in place. Sample OCPs given to prevent period during her wedding. [id number] Florina Quintero (REHABILITATION PROGRAM MANAGER) [address] [place] [address] 12/29/2014 11:34:58 12/29/2014 13:21:30 Increased frequency of urination 265203372 Urinary tr act infectious disease 81936978 UA positive, dwp. Prevention of UTIs discussed. Rx sent to pharmacy. [id number] Florina Quintero (REHABILITATION PROGRAM MANAGER) [address] [place] [address] 04/01/2015 13:53:51 04/01/2015 15:27:00 Vaginal discharge 353207066 N89.8 Vaginal discharge appears completely normal, dwp. Vaginal culture sent. Will call pt. if abnormal. [id number] Israel Linda MD [facility] [address], [place] [address] 03/28/2022 14:36:16 03/29/2022 15:57:02 Adult health examination 624476496 Z00.00 27 y/o WF L2 presents for general check up. The patient delivered healthy baby girl 5 months ago. She reports history of hypothyroi dism and vitamin d def. No concerns at this time. Body mass index 25-29 - overweight 172101008 Z68.27 BMI 27 Hypothyroidism 40337830 E03.9 Dx in 2019Taking Levothyrox ine 75mcg daily Vitamin D deficiency 347 78578 E55.9 took Vitamin D2 07075 IUNeeds recheck Obsessive- compulsive disorder 287199786 F42.9 on sertraline controlled Hyperlipid emia screening 954483070 Z13.220 Influenza vaccination declined 520562518 Z28.21 Mental hea lt screening 202656906 Z13.39 CLIFF-7 negative Depression screening 171 010253 Z13.31 PHQ2-9 negative [id number] Suzanna Byrd [facility] ([address]) [address] [place] [address] 06/06/2022 11:46:49 06/07/2022 14:19:11 Exposure to streptococcal pharyngitis 2068704460 105 Z20.818 will treat based off reported exposurefu as neededrepo rt to ED if s/s worsenwarm salt water gargles; trash toothbrush 48h p ABThand hygeine and staying away from others encouraged Do not share food or drink [id number] Kaylin Perez [facility] [address] [place] [address] 07/26/2022 11:26:54 07/30/2022 14:48:28 Body mass index 30+ - obesity 233516420 Z68.30 BMI 30.5Health y Weight: {{4'10= 91-118 [...] lbs 6'4= 156-204 lbs}} Tuberculos is screening 981259633 Z11.1 return to clinic in 48-72 hours for ppd reading Hypothyroidism 76949848 E03.9 Dx in 2019Taking Levothyrox ine 75mcg daily Obsessive- compulsive disorder 395475387 F42.9 on sertraline controlled likes Effexor better but has been bf cant take it [id number] Suzanna Byrd [facility] ([address]) [address] [place] [address] 03/01/2023 14:17:52 03/08/2023 16:31:29 Pharyngitis 310374356 J02.9 zyrtec in the day and benadryl at HShydratio n and rest encouraged fu w/ PCP in 1 weekreport to ED if s/s worsen or if you experience CP, SOB, STINSON or the like [id number] Kaylin Perez, [facility] [address] [place] [address] 03/25/2023 14:11:46 03/26/2023 11:49:56 Body mass index 25-29 - overweight 327097515 Z68.27 BMI 30Healthy Weight: {{4'10= 91-118 lbs 4'11= 94-123 lbs 5'= 97-127 lbs 5'1= 100-131 lbs 5'2= 104-135* 5 '3= 107-140 lbs 5'4= 110-144 lbs 5'5= 115-149 lbs 5'6= 118-154 lbs 5'7= 121-158 lbs 5'8= 125-163 lbs 5'9= 128-168 lbs 5'10= 132-173 lbs 5'11= 136-178 lbs 6'= 140-183 lbs 6'1= 144-188 lbs 6'2= 148-193 lbs 6'3= 152-199 lbs 6'4= 156-204 lbs}} Hypothyroidism 45176557 E03.9 Dx in 2018Taking Levothyrox ine 75mcg daily Vitamin D deficiency 347 56996 E55.9 took Vitamin D2 36725 IU03/28/20 22 Vitamin D 35.4 Obsessive- compulsive disorder 027475261 F42.9 stablepati ent weaned herself off sertraline 50mg 6 months ago Body mass index 30+ - obesity 390691972 Z68.30 BMI 30.Healthy Weight: {{4'10= 91-118 lbs [...] 6'4= 156-204 lbs}} Mental hea [facility] screening 999178518 Z13.39 CLIFF-7 negative Depression screening 171 714401 Z13.31 PHQ2-9 negative History of anemia 080777 002 Z86.2 [id number] Kaylin Perez, [facility] [address] [place] [address] 12/27/2023 12:35:13 01/01/2024 13:20:00 Lesion of scalp 3219949680 00 L98.9 top of scalp 2.5 cm soft massL posterior scalp 1cm soft mass Body mass index 25-29 - overweight 247406606 Z68.27 BMI 29.6Health y Weight: {{4'10= 91-118 [...] 6'4= 156-204 lbs}} Sebaceous cyst of skin 325753871 L72.3 top of scalp 2.5 cm soft massL posterior scalp 1cm soft mass Depression screening 171 206223 Z13.31 PHQ2-9 negative Health Concerns Section Related Observation LastModified by Organization Detai ls LastModified Time None Recorded Concern Status LastModified by Organization Details LastModified Time None Recorded Advance Directives Directive None Recorded Payers Encounter Date Sequence Insurance Name Policy Number Policy Quintanilla Covered Member ID Quintanilla Member ID Guarantor Name 06/06/[address] [facility] ON OR AFTER 12/15/20 (MEDICAID REPLACEMENT - HMO) Fabi Karen [id number] Fabi Karen 07/26/[address] [facility] ON OR AFTER 12/15/20 (MEDICAID REPLACEMENT - HMO) Fabi Karen [id number] Fabi Karen 03/01/2023 2 *SELF PAY* Sa rah Karen 03/25/2023 2 *SELF PAY* Sa rah Karen 12/27/2023 2 *SELF PAY* Sa rah Karen 12/27/[address] [facility] ON OR AFTER 12/15/20 (MEDICAID REPLACEMENT - HMO) Fabi Karen [id number] Fabi Karen Notes Date Note Type Note [...] and dysuria. ACE Ackerman Attn: Accounting, [address] [place], [address], [place] - [facility] 06/06/2022 14:19:36 07/26/19 23 [...] her hypothyroidism and OCD/anxiety medication from her lug loader/ob. However, voices her provider has asked her [...] was switched to Sertraline 50mg daily by REHABILITATION PROGRAM MANAGER. Denies any problems with it. States eventually wants to return to effexor. She doesnt see a psychiatrist. Kaylin Perez, [facility]- Attn: Accounting, [address] [place], [address], [facility] 07/27/2022 17:47:12 03/01/20 23 text/htm [...] COVID-19 vaccine current per pt. Suzanna Rochelle, PATIENT SERVICES MANAGER-BC Attn: Accounting, [address] [place], [address], [facility] 03/07/2023 15:44:12 03/25/20 23 text/htm [...] her hypothyroidism and OCD/anxiety medication from her lug loader/ob. However, voices her provider has asked her [...] was switched to Sertraline 50mg daily by REHABILITATION PROGRAM MANAGER. She doesnt see a psychiatrist. She stopped sertraline 50mg 6 months ago she weaned herself off. She is doing fine. Reports has history of anemia for which she wants to get checked today. MIKE Lockhart Attn: Accounting, [address] [place], [address], [facility] 03/25/2023 15:51:48 12/27/19 24 text/htm l 28 y/o WF presents for referral to general surgeon for removal of two lesions on scalp she has had for a few years. She denies any pain. She would like to go to surgeon in [place]. ACE Lockhart Attn: Accounting, [address] [place], [address], [facility] 12/27/2023 13:32:12 OBGyn Episode Ob Episode Information Episode Created Date Number of Fetuses Patient Bloodtype Patient rh Status Prepregnancy Weight lbs Domestic Partner Domestic Partner Phone Father Name Nursing Technician Status 12/27/19 24 1 CLOSED Fetus Data First Name Last Name Admitted to NICU Weight (g) Sex Living Outcome Pediatric Complications Fetus ID Race Codes Race Delivery Type , Spontane ous [id number] David Calculation Initial David Date Initial Exam [...] Domestic Partner Domestic Partner Phone Father Name Nursing Technician Status 03/28/20 22 1 CLOSED Fetus Data First Name Last Name Admitted to NICU Weight (g) Sex Living Outcome Pediatric Complications Fetus ID Race Codes Race Delivery Type F Full Term 84001 Vaginal David Calculation Initial David Date Initial [...] Domestic Partner Domestic Partner Phone Father Name Nursing Technician Status 03/28/20 22 1 CLOSED Fetus Data First Name Last Name Admitted to NICU Weight (g) Sex Living Outcome Pediatric Complications Fetus ID Race Codes Race Delivery Type F Full Term 85881 Vaginal David Calculation Initial David Date Initial [...]
--- OUTSIDE RECORDS SUMMARY | 2024-10-08 12:55 | XMS_ITS | Continuity of Care Document ---
Author Organization [facility] Address [address] [address] Phone Care Team Providers Care Hazardous Substances Scientist Name Role Phone Unavailable Unavailable Unavailable Allergies, Adverse Reactions, Alerts Substance Reaction Status [...] Diagnoses Date Provider Providers Copied on Encounter [facility] on, [address] [place] [address], [id number] , [place] tel:+ [phone] [facility] No Information 0 No Information [facility] on, [address] [place] [address], [id number] , tel:+ [phone] [facility] No Information 0 No Information OFFICE/OUTPA TIENT VISIT, EST [employer] [facility] [employer] on, [address] [place] [address], [id number] , [place] tel:[phone] [facility] Thyroid problems (chief complaint) Body mass index (BMI) 26.0-26.9, adultHypothyroid ism, unspecifiedFatig ueAnemiaAbnormal weight gain 0 No Information OFFICE/OUTPA TIENT VISIT, EST [facility] on, [address] [place] [address], [id number] , [place] tel:[phone] [facility] Cold symptoms (chief complaint) ChillsAcute nasopharyngitis [common cold]Cough 201 9 No Information Referring Provider: Leyla Li, [address] [place], [place] [id number] [facility] [place], [address] . tel:[phone] OFFICE/OUTPA TIENT VISIT, EST [facility] on, [address] [place] [address], [id number] , [place] tel:[phone] [facility] back pain (chief complaint)T hyroid problems (chief complaint) Body mass index (BMI) 25.0-25.9, adultHypothyroid ismBack pain Feb-3 No Information Referring Provider: Deltonalakeshia Carolyn N, [address] [place] [address], [address] . tel:[phone] OFFICE/OUTPA TIENT VISIT, [facility] on, [address] [place] [address], [id number] , tel:[phone] [facility] Chest discomfort (chief complaint)R efrain (chief complaint)T hyroid problems (chief complaint) Body mass index (BMI) 27.0-27.9, adultAnterior chest-wall painHypothyroidi smFollicular disorder No Information Referring Provider: [facility], [address] [place] [address], [address] . tel:[phone] OFFICE/OUTPA TIENT VISIT, [facility] on, [address] [place] [address], [id number] , tel:[phone] [facility] est a pcp (chief complaint)T hyroid problems (chief complaint) Body mass index (BMI) 28.0-28.9, adultHypothyroid ismAbnormal weight gainEncounter for immunizationDiet yaquelin counseling No Information Referring Provider: [facility], [address] [place] [address], [address] . tel:[phone] Family History Family Member Type Diagnosis Age At Onset Problem (finding) Family history of hyper tension Immunizations Vaccine Date Status Comments tetanus toxoid, reduced diph theria toxoid, and acellular pertussis vaccine, adsorbed administered Source: Other Provid er Payers Payer name Insurance type Covered libertarian [...] Tdap due Goal Influenza vaccine. Due on No due Goal Pap/HPV testing. Due on due Goal Depression screening. Due on due Goal Lipid panel. Due on due Goal Influenza vaccine. Due on Ap due Goal Tdap due Goal Depression screening. [...] Goal Lipid panel. Due on due Goal MICROALBUMIN, SEMIQUANT. Due [...] female. Additional information: Reports TSH 8.58 at quarry manager last week. Will request records. est a pcp The symptoms are reported as being mild. The symptoms occur daily. She states the symptoms are acute. Here to establish care. Denies previous PCP.Sees [facility] for quarry manager care. Functional Status Date Functional Assessmen t [...]
--- OUTSIDE RECORDS SUMMARY | 2024-10-08 13:00 | XMS_ITS | Clinical Summary ---
Author Organization [facility] Address [address] [place] [address] Phone Care Team Providers Care Nurse Reviewer Name Role Phone Unavailable Unavailable Unavailable Reason for Visit and Chief Complaint BEHAVIORAL HEALTH INTEGRATION ESTABLISHED Plan of Treatment No Plan of Treatment Recorded Assessments Includes: Assessments from this encounter Findings - Adjustment disorder - Last Documented On 11/28/2023 11:27AM ; [facility] Medical Equipment - Implanted Devices Includes: [...] Provider Service Location Service Date CLINIC VISIT [facility] (CLINICAL HEAVY MACHINERY OPERATOR) T1040 Adjustment disorder, unspecified CHAD BENEDICTW [facility]- 11/28/2023 Last Documented On 4 2:33PM ; [facility] PSYCHIATRIC DIAGNOSTIC EVALUATION (CLINICAL HEAVY MACHINERY OPERATOR) [address] Adjustment disorder, unspecified CHAD URIBE LCSW [facility]- 11/28/2023 Last Documented On 4 2:33PM ; [facility] Medical History Includes: Medical History addressed during this encounter No Medical History Recorded Family History Includes: Family History addressed during this encounter Description Last Updated Mother's side: anxietyFather 's side: anxiety, depression, PTSD, BPD, substance abuse 11/28/2023 Last Documented On 4 11:04AM ; [facility] Review of Systems Includes: Review of [...] Diagnosis BEHAVIORAL HEALTH INTEGRATION ESTABLISHED CHAD URIBE COLD ROLLING MACHINE SETTER [facility]- 11/28/19 24 10:42AM 11:28AM Adjustment Disorder Insurance Includes: Active Insurance Policies Plan Name Member ID Group # Subscriber Relationship Effect tatiana Dates 1 - [facility] [id number] ARACELIS HAMEED Self Clinical Notes Includes: Clinical Notes from this encounter * Progress note Date Encounter Last Documented by 11/28/2023 BEHAVIORAL HEALTH IN TEGRATION ESTABLISHED Last documented on 11/28/2023; 11:27 AM, CHAD URIBE [facility]; [facility] Reason For Visit Initial Assessment Assessment - Adjustment disorder Physical Findings Psychiatric: Psychiatric: Value PHQ9 score: 1 - PHQ9 score: Psychiatric: Value CLIFF 7 score: 3 - CLIFF 7 score: Physician's Services: - Screening for adult depression: impression and score Hunt-Suicide Severity Rating Scale Score: 0 Jonathan Wallace [...] cats, 1 dog, Milady User Defined 18 Episcopalian User Defined 14 Client shared goals for therapy include: 1) live a more peaceful life 2) process trauma and core beliefs Bottom of Document Time Start: 10:45 a.m. Time End: 11:24 a.m. Next Appt for: 12/22 at 3:30 p.m.
--- OUTSIDE RECORDS SUMMARY | 2024-10-08 13:00 | XMS_ITS | Continuity of Care Document ---
Author Organization [facility] Address [address] [address] Phone Care Team Providers Care Engineer Sergeant Name Role Phone Unavailable Unavailable Unavailable Allergies, [...] Diagnoses Date Provider Providers Copied on Encounter [facility] on, [address] [place] [address], [id number] , [place] tel:[phone] [facility] No Information 0 No Information [facility] on, [address] [place] [address], [id number] , tel:+ [phone] [facility] No Information 0 No Information OFFICE/OUTPA TIENT VISIT, EST [facility] on, [address] [place] [address], [id number] , [place] tel:[phone] [facility] Thyroid problems (chief complaint) Body mass index (BMI) 26.0-26.9, adultHypothyroid ism, unspecifiedFatig ueAnemiaAbnormal weight gain 0 No Information OFFICE/OUTPA TIENT VISIT, EST [facility] on, [address] [place] [address], [id number] , [place] tel:[phone] [facility] Cold symptoms (chief complaint) ChillsAcute nasopharyngitis [common cold]Cough 201 9 No Information Referring Provider: Leyla Li, [address] [place], [place] [id number] [facility] [place], [address] . tel:[phone] OFFICE/OUTPA TIENT VISIT, EST [facility] on, [address] [place] [address], [id number] , [place] tel:[phone] [facility] back pain (chief complaint)T hyroid problems (chief complaint) Body mass index (BMI) 25.0-25.9, adultHypothyroid ismBack pain Feb-3 No Information Referring Provider: [place]lakes[place]ia Carolyn N, [address] [place] [address], [id number] . tel:[phone] OFFICE/OUTPA TIENT VISIT, [facility] on, [address] [place] [address], [id number] , tel:[phone] [facility] Chest discomfort (chief complaint)R efrain (chief complaint)T hyroid problems (chief complaint) Body mass index (BMI) 27.0-27.9, adultAnterior chest-wall painHypothyroidi smFollicular disorder No Information Referring Provider: [facility], [address] [place] [address], [id number] . tel:[phone] OFFICE/OUTPA TIENT VISIT, [facility] on, [address] [place] [address], [id number] , tel:[phone] [facility] est a pcp (chief complaint)T hyroid problems (chief complaint) Body mass index (BMI) 28.0-28.9, adultHypothyroid ismAbnormal weight gainEncounter for immunizationDiet yaquelin counseling No Information Referring Provider: [facility], [address] [place] [address], [id number] . tel:[phone] Family History Family Member Type Diagnosis Age At Onset Problem (finding) Family history of hyper tension Immunizations Vaccine Date Status Comments tetanus toxoid, reduced diph theria toxoid, and acellular pertussis vaccine, adsorbed administered Source: Other Provid er Payers Payer name Insurance type Covered alliance [...] Of Treatment Date Type Action Status Goal Lipid panel. Due on due Goal Depression screening. Due on due Goal Pap/HPV testing. Due on due Goal PAP. Due on due Goal Tdap due Goal Influenza vaccine. Due on No due Goal Influenza vaccine. Due on Ap [...] completed Goal CMP. Due on due Goal Pap/HPV testing. Due on due Goal PAP. Due on due Goal Tdap due Goal Influenza vaccine. Due on due Goal Depression screening. Due on due Goal Lipid panel. Due on due Goal PAP. Due on due Goal Depression screening. Due on due Goal Pap/HPV testing. Due on due Goal Tdap due Goal Influenza vaccine. Due on due Goal MICROALBUMIN, SEMIQUANT. Due on due Goal Lipid panel. Due on 019 due Goal Lifestyle education regardin g diet [...] female. Additional information: Reports TSH 8.58 at [facility] last week. Will request records. est a pcp The symptoms are reported as being mild. The symptoms occur daily. She states the symptoms are acute. Here to establish care. Denies previous PCP.Sees [facility] for [facility] p[facility] care. Functional Status Date Functional Assessmen t [...]
--- OUTSIDE RECORDS SUMMARY | 2024-10-08 13:00 | XMS_ITS ---
Care Plan - [facility] Created on: October 08, 2024 ARACELIS HAMEED : 1995 Sex: Female Author Organization [facility] Address [address] [place] [address] Phone Care Team Providers Care Bit Shaver Name Role Phone Unavailable Unavailable Unavailable
--- OUTSIDE RECORDS SUMMARY | 2024-10-08 13:00 | XMS_ITS ---
Author Organization [facility] Address [address] [place] [address] Phone Care Team Providers Care Arcade Technician Name Role Phone Unavailable Unavailable Unavailable Plan of Treatment No Plan of Treatment Recorded Assessments Includes: Assessments for all patient encounters Findings Encounter Date Adjustment disorder BEHAVIORAL HEALTH IN TEGRATION ESTABLISHED with [facility]AD [facility] 11/28/2023 Last Documented On 4 11:27AM ; [facility] Medical Equipment - Implanted Devices Includes: Current [...] Provider Service Location Service Date CLINIC VISIT [facility] (CLINICAL SURVEY ENGINEER) T1040 Adjustment disorder, unspecified CHAD D RONY [facility] 11/28/2023 Last Documented On 4 2:33PM ; [facility] PSYCHIATRIC DIAGNOSTIC EVALUATION (CLINICAL SURVEY ENGINEER) 21207 Adjustment disorder, unspecified CHAD D RONY [facility] 11/28/2023 Last Documented On 4 2:33PM ; [facility] Medical History Includes: Medical History in patient's [...] Diagnosis BEHAVIORAL HEALTH INTEGRATION ESTABLISHED CHAD URIBE 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 [facility] 11/28/19 24 10:42AM 11:28AM Adjustment Disorder Insurance Includes: Active Insurance Policies Plan Name Member ID Group # Subscriber Relationship Effect tatiana Dates 1 - [facility] [employer] [id number] ARACELIS HAMEED Self Clinical Notes Includes: Signed Clinical Notes starting from 07/06/2022 * Progress note Date Encounter Last Documented by 11/28/2023 BEHAVIORAL HEALTH IN TEGRATION ESTABLISHED Last documented on 11/28/2023; 11:27 AM, CHAD URIBE LCSW; [facility] Reason For Visit Initial Assessment Assessment - Adjustment disorder Physical Findings Psychiatric: Psychiatric: Value PHQ9 score: 1 - PHQ9 score: Psychiatric: Value CLIFF 7 score: 3 - CLFIF 7 score: Physician's Services: - Screening for adult depression: impression and score [place]-Suicide Severity Rating Scale Score: 0 Jonathan Wallace [...] a teenager My parents worked at a [employer], while I stayed home alone miscarriage [...] cats, 1 dog, Milady User Defined 18 Christianity User Defined 14 Client shared goals for therapy include: 1) live a more peaceful life 2) process trauma and core beliefs Bottom of Document Time Start: 10:45 a.m. Time End: 11:24 a.m. Next Appt for: 12/22 at 3:30 p.m.
--- OUTSIDE RECORDS SUMMARY | 2024-10-08 13:02 | XMS_ITS | Continuity of Care Document ---
Author Organization [employer] [facility] Address [address] [place] [address] Phone Care Team Providers Care Master Mechanic Name Role Phone Nikki Arce, Syed Unavailable Unavailable Procedures Procedure Date Alcohol/Subs Interv 15-30 Min 1 As per patient privacy policy some of the clinical information may not be visible. Advance Directives Directive Yes / No Effective Date File Name No Information Encounters Encounter Description Practice Location Reason(s) For Visit Diagnoses Date Provider Providers Copied on Encounter [facility], [address] [place], [id number] tel:[phone] [facility] No Information 1 Nikki Lynch. [address] [facility], [address], [place], [address]. tel:[phone] [facility], [address] [place], [place], [id number] tel:[phone] [facility] Adjustment disorder with anxious moodOther [facility] Counseling 1 No Information [facility], [address] [place] [address] [place] [place], [id number] tel:[phone] [facility] Adjustment disorder with anxious moodOther Specified Counseling 1 No Information [facility], [address] [place], [id number] tel:[phone] [facility] Adjustment disorder with anxious moodOther Specified Counseling [...]
--- OUTSIDE RECORDS SUMMARY | 2024-10-08 13:03 | XMS_ITS | Continuity of Care Document ---
Author Organization [employer] Address [address] [address] Phone Care Team Providers Care Golf Ball Cover Treater Name Role Phone Unavailable Unavailable Unavailable Allergies, [...] Diagnoses Date Provider Providers Copied on Encounter [facility] on, [address] [place] [address], [id number] , [place] tel:[phone] [facility] No Information 0 No Information [facility] on, [address] [place] [address], [id number] , tel:[phone] [facility] No Information 0 No Information OFFICE/OUTPA TIENT VISIT, EST [facility] on, [address] [place] [address], [id number] , [place] tel:[phone] [facility] Thyroid problems (chief complaint) Body mass index (BMI) 26.0-26.9, adultHypothyroid ism, unspecifiedFatig ueAnemiaAbnormal weight gain 0 No Information OFFICE/OUTPA TIENT VISIT, EST [facility] on, [address] [place] [address], [id number] , [place] tel:[phone] [facility] Cold symptoms (chief complaint) ChillsAcute nasopharyngitis [common cold]Cough 201 9 No Information Referring Provider: Leyla Li, [address] [place], [place] [id number] [facility] [place], [address] . tel:[phone] OFFICE/OUTPA TIENT VISIT, EST [facility] on, [address] [place] [address], [id number] , [place] tel:[phone] [facility] back pain (chief complaint)T hyroid problems (chief complaint) Body mass index (BMI) 25.0-25.9, adultHypothyroid ismBack pain Feb-3 No Information Referring Provider: [place] Carolyn N, [address] [place] [address], [id number] . tel:[phone] OFFICE/OUTPA TIENT VISIT, [facility] on, [address] [place] [address], [id number] , tel:[phone] [facility] Chest discomfort (chief complaint)R efrain (chief complaint)T hyroid problems (chief complaint) Body mass index (BMI) 27.0-27.9, adultAnterior chest-wall painHypothyroidi smFollicular disorder No Information Referring Provider: [facility], [address] [place] [address], [id number] . tel:[phone] OFFICE/OUTPA TIENT VISIT, [facility] on, [address] [place] [address], [id number] , tel:[phone] [facility] est a pcp (chief complaint)T hyroid problems (chief complaint) Body mass index (BMI) 28.0-28.9, adultHypothyroid ismAbnormal weight gainEncounter for immunizationDiet yaquelin counseling No Information Referring Provider: [facility], [address] [place] [address], [id number] . tel:[phone] Family History Family Member Type Diagnosis Age [...] female. Additional information: Reports TSH 8.58 at [facility] last week. Will request records. est a pcp The symptoms are reported as being mild. The symptoms occur daily. She states the symptoms are acute. Here to establish care. 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 Functional Status Date Functional Assessmen t [...]
--- OUTSIDE RECORDS SUMMARY | 2024-10-08 13:03 | XMS_ITS | Continuity of Care Document ---
Author Organization [employer] [facility] Address [address] [place] [address] Phone Care Team Providers Care Chip Washer Name Role Phone Nikki Arce, Syed Unavailable Unavailable Procedures Procedure Date Alcohol/Subs Interv 15-30 Min 1 As per patient privacy policy some of the clinical information may not be visible. Advance Directives Directive Yes / No Effective Date File Name No Information Encounters Encounter Description Practice Location Reason(s) For Visit Diagnoses Date Provider Providers Copied on Encounter [facility], [address] [place] [place], [id number] tel:[phone] [facility] No Information 1 Nikki Lynch. [address] [facility], [address], [place], [address]. tel:[phone] [facility], [address] [place], [place], [id number] tel:[phone] [facility] Adjustment disorder with anxious moodOther Specified Counseling 1 No Information [facility], [address] [place] [address] [place], [id number] tel:[phone] [facility] Adjustment disorder with anxious moodOther Specified Counseling 1 No Information [facility], [address] [place], [id number] tel:[phone] [facility] Adjustment disorder with anxious moodOther Specified Counseling [...]
== END 2024-10-08 11:46 | disposition home or self-care (01) ==
LOC: ANHOBOP 11:29 → ANHLDR 11:29
PROVIDERS: PCP Registered Nurse; Visit Provider Obstetrics & Gynecology Gynecology
DX: O42.90 Premature rupture of membranes, unspecified as to length of time between rupture and onset of labor, unspecified weeks of gestation (principal); Z3A.00 Weeks of gestation of pregnancy not specified
CPT/HCPCS: 59025; 99199

== ENCOUNTER 2024-10-15 05:04 | Inpatient (IN) | payer OTHER, SELFPAY ==
[2024-10-15] VITALS (104 sets, daily range): BP systolic 68–133; BP diastolic 11–92; PULSE 62–134; RESP 16–19; TEMP 36.4–37.1; O2SAT 94–100; BMI 32.4
--- OUTSIDE RECORDS SUMMARY | 2024-10-15 05:08 | XMS_ITS | Clinical Summary ---
Author Organization [facility] Address [address] [place] [address] Phone Care Team Providers Care Dcs Engineer Name Role Phone Unavailable Primary Care Provider Unavailabl e Encounters Date Type Department Care Team Description 09/15/2024 External Device Data [facility] ABSTRACTION Provider, Abstract 08/24/2024 10:00 AM CDT - 08/24/2024 11:59 PM CDT Hospital Encounter [facility] [address] X[address] [place] [phone] Shama Chaudhry MD Discharge Disposition: Home or Self Care 08/22/2024 External Device Data [facility] ABSTRACTION Provider, Abstract 08/21/2024 External Device Data [facility] ABSTRACTION Provider, Abstract 08/19/2024 External Device Data [facility] ABSTRACTION Provider, Abstract 08/05/2024 External Device Data [facility] ABSTRACTION Provider, Abstract 07/27/2024 12:37 PM OBSTETRICS SCRUB NURSE - 07/27/2024 11:59 PM OBSTETRICS SCRUB NURSE Hospital Encounter [facility] Cruzito Xiao [address] [place] [phone] Елена Vargas MD Discharge Disposition: Home or Self Care from Last 3 Months Social History Tobacco Use Types Packs/Day Years Used Date Smoking Tobacco: Never Assessed Comments Unknown Sex and Gender Information Value Date Recorded Sex Assigned at Not on file Legal Sex Female 4:19 PM OBSTETRICS SCRUB NURSE Gender Identity Not on file Sexual Orientation Not on file Plan of Treatment Health Maintenance Due Date Last Done Comments HEPATITIS B VACCINES (1 of 3 - 19+ 3-dose series) 2014 CERVICAL CANCER SCREENING 02/17/2016 HPV/Cotest (21-29) 02/17/2016 PAP SMEAR 02/17/2016 INFLUENZA VACCINE (#1) 2024 DTAP/TDAP/TD VACCINES (2 - T d or Tdap) 08/16/2031 08/15/2021 HPV VACCINES Aged Out No longer eligi jesus based on patient's age to complete this topic Procedures Procedure Name Priority Date/Time Associated Diagnosis Comments US OB FOLLOW UP PER FETUS Routine 08/24/2024 10:40 AM CDT Encounter for other screening follow-up US OB FOLLOW UP PER FETUS Routine 07/27/2024 1:05 PM OBSTETRICS SCRUB NURSE Encounter for ultrasound to check growth from Last 3 Months Results * US OB FOLLOW UP PER FETUS (08/24/2024 10:40 AM CDT) Only the most recent of2 resultswithin the time period is included. Anatomical Region Laterality Modality Pelvis Ultrasound 08/24/2024 9:13 AM CDT Narrative 08/24/2024 10:47 AM CDT STL FOLLOW UP ----- Pat. Name: FABI JONES Study Date: 08/24/2024 9:13am Pat. NO: [id number] Referring MD: ЕЛЕНА VARGAS MD Site: [facility] Assistant Manager: Teresa Guardado RDMS : 1995 Age: 29 ----- INDICATION ----- Screening Follow-Up CODING ----- Diagnoses Z3A.31: Weeks of gestation Z36.2: Encounter for other screening follow-up Procedures 90107: Ultrasound, uterus, real time with image documentation, [...] 3 lb 11 oz EFW by [facility] ([id number]) Head / Face / Neck Biometry: Assistant Finance Director 5.0 mm Extremities / Bony Struc Biometry: [...] and date of were verified by the salad maker prior to the exam IMPRESSION ----- Osuna [...] Pat. Name:Heidy JONES Date:08/24/2024 9:13am Pat. NO: [id number] MD:ЕЛЕНА VARGAS MD [facility]Teresa Guardado RDMS :1995Age:29 ----- INDICATION ----- Screening Follow-Up CODING ----- Diagnoses Z3A.31: Weeks of gestation Z36.2: Encounter for other screeningfollow-up Procedures [id number]: Ultrasound, uterus, real time withimage documentation, follow up, transabdominal approach per fetus HISTORY ----- OB History 2. Para 1 METHOD ----- Transabdominal ultrasound examination ----- Osuna . Number of fetuses: 1 DATING ----- Cycle:regular cycle GA by prior [id number] w + 5 d FUNMI by prior [...] 3 lb 11 oz EFW by [facility] ([id number]) Head / Face / Neck Biometry: Assistant Finance Director 5.0mm Extremities / Bony Struc Biometry: FL [...] and date of were verified by the salad maker prior tothe exam IMPRESSION ----- Osuna @ [...] Resul t from Last [address] [place] [address] [address] MEDICAID
--- OUTSIDE RECORDS SUMMARY | 2024-10-15 05:10 | XMS_ITS | Data Portability ---
Author Organization [facility] HERNESTOJuan Carlos Donnelly Address [address] [place] [address] Care Team Providers Care Inorganic Chemical Technician Name Role Phone CHRISTELLE PEREZ Primary Care Provider [phone] CLEMENT NEWMAN Stop Attacher [phone] Assessment No assessment recorded. Plan of Treatment Reminders Order Date Submit Date Provider Last Modified By Organization Details Last Modified Time Details Appointments None record ed. Lab CBC 2022 023 mickiewv [facility], [address] [place] [address], [address], [place], [address], 3 17:03:49 TSH + free T4, serum 2022 023 YANTIS [facility], [address] [place] [address], [address], [place], [address], 15:09:55 thyroi d peroxi dase (tpo) Ab, serum 2022 023 YANTIS [facility], [address] [place] [address], [address], [place], [address], 3 15:09:56 PPD (purif ied protei n deriva tive), skin test 2022 023 ALECIA In-Office Order, Internal Use Only DO Not Attach Compendium DO Not Attach Compendium, Do Not Delete/merge, 60509 3 10:20:47 Referral genera l zariao n referr al 2023 024 [facility] - [facility], [address], [place], [address], 4 14:03:25 Procedures None record ed. Surgeries None record ed. Imaging None record ed. Medication Orders levoth yroxin e 75 mcg tablet 2022 024 [facility], [address], [place], [place], [id number], 4 13:04:38 cetiri zine 10 mg tablet [...] e 75 mcg tablet 2022 023 haley [facility] #32544, [address], [place], [place], [id number], 4 13:04:27 sertra line 50 mg tablet 2022 023 YANTIS [facility], [address], [place], [place], [id number], 3 14:19:12 Zithro max Z-Tye 250 mg tablet 2021 022 veronica [facility] #45189, [address], [id number], 12:31:34 Patient TargetsNo targets recorded. Patient Instructions Encounter Date Encounter Id Patient Instructions Last Modified By Organization Details Last Modified Time 07/26/2022 [id number] learning about tuberculosis (TB) yarauz Not available [...] medication yarauz Not available 07/26/2022 12:39:22 03/25/2023 [id number] learning about healthy weight yarauz Not available [...] medication veronica Not available 03/25/2023 14:36:49 12/27/2023 [id number] learning about healthy weight yajose Not available [...] DO Not Attach Compendium, Do Not Delete/merge, [id number] 07/26/2022 12:30:58 03/25/2003/26/2023 TSH+F REE T4 TSH 2.570 uIU/m L 0.450- 4.500 Not Available [facility] ([facility]) [address] [facility], [place], [address], 03/26/2023 15:09:55 03/25/2003/26/2023 TSH+F REE T4 T4,free(dire ct) 1.25 NG/dL 0.82-1 .77 Not Available [facility] ([facility]) [address] [facility], [place], [address], 03/26/2023 15:09:55 03/25/20 23 03/26/2023 THYRO ID ANTIB ODIES thyroid peroxidase (tpo) Ab 294 IU/mL 0-34 above high normal Not Available [facility] ([facility]) [address] [facility], [place], [address], 03/26/2023 15:09:56 03/25/20 23 03/26/2023 THYRO ID ANTIB ODIES thyroglobuli n antibody <1.0 IU/mL 0.0-0. 9 Thyro globu chele Antib deb measu red by Beckm an Coult er Metho dolog y Not Available [facility] ([facility]) [address] [facility], [place], [address], 03/26/2023 15:09:56 03/06/20 24 03/06/2024 US, obste tric, limit ed No observ ation record ed. [facility] [address], [place], [address], 03/09/2024 11:28:01 Result Notes None recorded. Problems Name Problem SNOMED Code Status Onset Date Resolution Date Notes Provider Name and Address Organization Details Recorded Time Hypothyr oidism 96951869 Active 2021 Florina Bar rosa, [place] - [facility] 4 10:51:11 Obsessiv e-compul sive disorder 403647648 Active 2021 Florina Dinero [place], [place] [facility] 4 10:51:11 Vitamin D deficien cy 96505408 Active 2021 Florina Bar [place] [facility] 4 10:51:11 Body mass index 25-29 - overweig ht 274930390 Active 2021 Florina Bar [place] [facility] 4 10:51:11 Body mass index 30+ - obesity 646921536 Active 2022 ACE Lockhart Attn: Tony saeed,[address] [facility], [place], [address], [facility] 4 13:23:26 Increase d frequenc y of urinatio n 397346158 Completed 12/27/2023 Removal Reason: resolved [facility] Attn: Tony saeed,[address], [place], [address], [facility] 4 13:23:35 Urinary tract infectio us disease 79453507 Completed 12/27/2023 Removal Reason: resolved Christelle PerezMIKE Attn: Tony g,[address], [place], [address], [facility] 4 13:23:43 Problem Notes None recorded. Procedures Surgical History Date Name Laterality Status Provider Name and Address Organization Details Recorded Time 09/16/2023 Date of Last Pap Smear completed Venus Gomes RN [facility] 12/27/2023 13:05:44 Imaging Results Imaging Date Name Status LastModified by Organiz ation Details LastModified Time 03/06/2024 US, obstetric, limited completed [facility] [address], [place], [address], 03/09/2024 11:28:01 Procedure Notes None recorded. Medical Equipment None Reported. Allergies Allergen ID Allergen Name Allergen Category Reaction Reaction Severity Criticality Documentation Date Start Date Code Code System Note Provider Name and Address Organization Details Recorded Time 637612 Product containin g penicilli n (product) medicatio n hives Not available high 03/28/2022 69174 8001 SNOMED Christelle MIKE Perez Attn: Tony saeed,[address] [facility], [place], [address], [facility] 2 15:26:37 85515 Penicilli n Not available hives Not available Not available 11/26/2014 27815 RxNorm Florina lee [place] 4 10:51:13 Medications Name Sig Start Date Stop Date Status Note LastModified by Organization Details LastModified Time terconazole 0.4 % vaginal cream 10/12 /2022 completed Not Available Not Available Not Available [...] Updated DateTime 06/06/2022 157.48 cm 28.3 kg/m2 56951.82 g Brianna Griggs MA [facility] 06/06/2022 11:49:06 Date Recorded Body height Body mass index (BMI) Body weight Oxygen saturation Oxygen saturation in Arterial blood by Pulse oximetry Heart rate Body temperature Systolic blood pressure Diastolic blood pressure Provider Name and Address Organization Details Last Updated DateTime 157.48 cm 30.5 kg/m2 87625.5 2 g 98 % 98 % 74 /min 97.8 [degF] 100 mm[Hg] 78 mm[Hg] Lesly shaw MA [facility] 3 12:11:55 Date Recorded Body height Body mass index (BMI) Body weight Provider Name and Address Organization Details Last Updated DateTime 03/01/2023 157.48 cm 28.3 kg/m2 79697.82 g Brianna Griggs MA [facility] 03/01/2023 14:21:59 Date Recorded Body height Body mass index (BMI) Body weight Oxygen saturation Oxygen saturation in Arterial blood by Pulse oximetry Heart rate Body temperature Systolic blood pressure Diastolic blood pressure Provider Name and Address Organization Details Last Updated DateTime 3 157.48 cm 30 kg/m2 55162.5 5 g 97 % 97 % 98 /min 98.6 [degF] 110 mm[Hg] 80 mm[Hg] Lesly shaw MA [facility] 3 14:20:38 Date Recorded Body height Body mass index (BMI) Body weight Heart rate Body temperature Systolic blood pressure Diastolic blood pressure Provider Name and Address Organization Details Last Updated DateTime 4 157.48 cm 29.6 kg/m2 44155.5 6 g 76 /min 98.6 [degF] 110 mm[Hg] 76 mm[Hg] Venus Gomes RN [facility] 4 13:08:32 Social History Question Answer Notes LastModified by Organizat ion Details LastModified Time Tobacco Smoking Status Never Smoker Lesly Soto MA null, [facility] 03/28/2022 15:04:59 What Is Your Level Of [...] Anxious, Or Unable To Sleep At Night)? [id number] Information not available 03/28/2022 Do You Use [...] Immunizations Vaccine Type Date Status Note Provider Corky chirinos and Address Organization Details Recorded Time Tdap 08/15/2021 completed Lesly Soto [place], [place] [facility] 03/28/2022 15:07:47 COVID-19, mRNA, LNP-S, PF, 30 mcg/0.3 mL dose 05/17/2021 completed Lesly Soto, [place], [place] [facility] 03/28/2022 15:08:29 COVID-19, mRNA, LNP-S, PF, 30 mcg/0.3 mL dose 07/18/2021 completed Lesly Soto, [place], [place] [facility] 03/28/2022 15:08:41 Past Encounters Encounter ID Performer Location Encounter Start Date Encounter Closed Date Diagnosis/Indication Diagnosis SNOMED-CT Code Diagnosis ICD10 Code Diagnosis Note [id number] MD Leon Queen ([employer]) [address] [place] [address] 11/26/2014 16:01:21 11/26/2014 16:48:30 IUD check 647802569 IUD in place. Sample OCPs given to prevent period during her wedding. [id number] MD Leon Queen ([employer]) [address] [place] [address] 12/29/2014 11:34:58 12/29/2014 13:21:30 Increased frequency of urination 937008847 Urinary tr act infectious disease 90830507 UA positive, dwp. Prevention of UTIs discussed. Rx sent to pharmacy. [id number] MD Leon Queen ([employer]) [address] [place] [address] 04/01/2015 13:53:51 04/01/2015 15:27:00 Vaginal discharge 815916578 N89.8 Vaginal discharge appears completely normal, dwp. Vaginal culture sent. Will call pt. if abnormal. [id number] Israel Linda MD [facility] [address] [place] [address] 03/28/2022 14:36:16 03/29/2022 15:57:02 Adult health examination 167918156 Z00.00 27 y/o WF L2 presents for general check up. The patient delivered healthy baby girl 5 months ago. She reports history of hypothyroi dism and vitamin d def. No concerns at this time. Body mass index 25-29 - overweight 047499984 Z68.27 BMI 27 Hypothyroidism 33941724 E03.9 Dx in 2019Taking Levothyrox ine 75mcg daily Vitamin D deficiency 347 05534 E55.9 took Vitamin D2 18090 IUNeeds recheck Obsessive- compulsive disorder 449465336 F42.9 on sertraline controlled Hyperlipid emia screening 116999854 Z13.220 Influenza vaccination declined 758697282 Z28.21 Mental hea lth screening 058331901 Z13.39 CLIFF-7 negative Depression screening 171 720381 Z13.31 PHQ2-9 negative [id number] Suzanna Byrd, [employer] [address]) [address] [place] [address] 06/06/2022 11:46:49 06/07/2022 14:19:11 Exposure to streptococcal pharyngitis 1943249620 105 Z20.818 will treat based off reported exposurefu as neededrepo rt to ED if s/s worsenwarm salt water gargles; trash toothbrush 48h p ABThand hygeine and staying away from others encouraged Do not share food or drink [id number] Israel Linda MD [facility] [address] [place] [address] 07/26/2022 11:26:54 07/30/2022 14:48:28 Body mass index 30+ - obesity 743387627 Z68.30 BMI 30.5Health y Weight: {{4'10= 91-118 [...] lbs 6'4= 156-204 lbs}} Tuberculos is screening 906626897 Z11.1 return to clinic in 48-72 hours for ppd reading Hypothyroidism 11707303 E03.9 Dx in 2019Taking Levothyrox ine 75mcg daily Obsessive- compulsive disorder 552816824 F42.9 on sertraline controlled likes Effexor better but has been bf cant take it [id number] Suzanna Byrd, [employer] [address]) [address] [place] [address] 03/01/2023 14:17:52 03/08/2023 16:31:29 Pharyngitis 952077843 J02.9 zyrtec in the day and benadryl at HShydratio n and rest encouraged fu w/ PCP in 1 weekreport to ED if s/s worsen or if you experience CP, SOB, STINSON or the like [id number] Israel Linda MD [facility] [address] [place] [address] 03/25/2023 14:11:46 03/26/2023 11:49:56 Body mass index 25-29 - overweight 907316747 Z68.27 BMI 30Healthy Weight: {{4'10= 91-118 lbs 4'11= 94-123 lbs 5'= 97-127 lbs 5'1= 100-131 lbs 5'2= 104-135* 5 '3= 107-140 lbs 5'4= 110-144 lbs 5'5= 115-149 lbs 5'6= 118-154 lbs 5'7= 121-158 lbs 5'8= 125-163 lbs 5'9= 128-168 lbs 5'10= 132-173 lbs 5'11= 136-178 lbs 6'= 140-183 lbs 6'1= 144-188 lbs 6'2= 148-193 lbs 6'3= 152-199 lbs 6'4= 156-204 lbs}} Hypothyroidism 56908696 E03.9 Dx in 2019Taking Levothyrox ine 75mcg daily Vitamin D deficiency 347 00787 E55.9 took Vitamin D2 67527 IU03/28/20 22 Vitamin D 35.4 Obsessive- compulsive disorder 609660005 F42.9 stablepati ent weaned herself off sertraline 50mg 6 months ago Body mass index 30+ - obesity 045511743 Z68.30 BMI 30.Healthy Weight: {{4'10= 91-118 lbs 4'11= 94-123 lbs 5'= 97-127 lbs 5'1= 100-131 lbs 5'2= 104-135* 5 '3= 107-140 lbs 5'4= 110-144 lbs 5'5= 115-149 lbs 5'6= 118-154 lbs 5'7= 121-158 lbs 5'8= 125-163 lbs 5'9= 128-168 lbs 5'10= 132-173 lbs 5'11= 136-178 lbs 6'= 140-183 lbs 6'1= 144-188 lbs 6'2= 148-193 lbs 6'3= 152-199 lbs 6'4= 156-204 lbs}} Mental hea [facility] screening 512386416 Z13.39 CLIFF-7 negative Depression screening 171 903676 Z13.31 PHQ2-9 negative History of anemia 172850 002 Z86.2 [id number] Israel Linda MD [facility] [address], [place] [address] 12/27/2023 12:35:13 01/01/2024 13:20:00 Lesion of scalp 4425864794 00 L98.9 top of scalp 2.5 cm soft massL posterior scalp 1cm soft mass Body mass index 25-29 - overweight 974230720 Z68.27 BMI 29.6Health y Weight: {{4'10= 91-118 [...] 6'4= 156-204 lbs}} Sebaceous cyst of skin 922668738 L72.3 top of scalp 2.5 cm soft massL posterior scalp 1cm soft mass Depression screening 171 832682 Z13.31 PHQ2-9 negative Health Concerns Section Related Observation LastModified by Organization Detai ls LastModified Time None Recorded Concern Status LastModified by Organization Details LastModified Time None Recorded Advance Directives Directive None Recorded Payers Encounter Date Sequence Insurance Name Policy Number Policy Quintanilla Covered Member ID Quintanilla Member ID Guarantor Name 06/06/2022 1 [facility] ON OR AFTER 12/15/20 (MEDICAID REPLACEMENT - HMO) Fabi Jones [id number] Fabi Jones 07/26/2022 1 [facility] ON OR AFTER 12/15/20 (MEDICAID REPLACEMENT - HMO) Fabi Jones [id number] Fabi Karen 03/01/2023 2 *SELF PAY* Sa rah Karen 03/25/2023 2 *SELF PAY* Sa rah Karen 12/27/2023 2 *SELF PAY* Sa rah Karen 12/27/2023 1 [facility] ON OR AFTER 12/15/20 (MEDICAID REPLACEMENT - HMO) Fabi Jones [id number] Fabi Jones Notes Date Note Type Note Provider Name [...] STINSON, diarrhea, constipation and dysuria. Suzanna Byrd, [employer] Attn: Accounting, [address] [place], [address], [facility] 06/06/2022 14:19:36 07/26/19 23 text/htm [...] her hypothyroidism and OCD/anxiety medication from her production pattern maker/ob. However, voices her provider has asked her [...] was switched to Sertraline 50mg daily by [employer]. Denies any problems with it. States eventually wants to return to effexor. She doesnt see a psychiatrist. ACE Lockhart Attn: Accounting, [address] [place], [address], [facility] 07/27/2022 17:47:12 03/01/20 23 text/htm l Pt [...] test. COVID-19 vaccine current per pt. Suzanna Byrd, [employer]- Attn: [address] [place], [address], [facility] 03/07/2023 15:44:12 03/25/20 23 text/htm [...] her hypothyroidism and OCD/anxiety medication from her production pattern maker/ob. However, voices her provider has asked her [...] was switched to Sertraline 50mg daily by [employer]. She doesnt see a psychiatrist. She stopped sertraline 50mg 6 months ago she weaned herself off. She is doing fine. Reports has history of anemia for which she wants to get checked today. [facility] Attn: Accounting, [address] [place], [address], [facility] 03/25/2023 15:51:48 12/27/19 24 text/htm l 28 y/o WF presents for referral to general surgeon for removal of two lesions on scalp she has had for a few years. She denies any pain. She would like to go to surgeon in [place]. [facility] Attn: Accounting, [address] [place], [address], [facility] 12/27/2023 13:32:12 OBGyn Episode Ob Episode Information Episode Created Date Number of Fetuses Patient Bloodtype Patient rh Status Prepregnancy Weight lbs Domestic Partner Domestic Partner Phone Father Name Leave Manager Status 12/27/19 24 1 CLOSED Fetus Data First Name Last Name Admitted to NICU Weight (g) Sex Living Outcome Pediatric Complications Fetus ID Race Codes Race Delivery Type , Spontane ous [id number] David Calculation Initial David Date Initial Exam [...] Domestic Partner Domestic Partner Phone Father Name Leave Manager Status 03/28/20 22 1 CLOSED Fetus Data First Name Last Name Admitted to NICU Weight (g) Sex Living Outcome Pediatric Complications Fetus ID Race Codes Race Delivery Type F Full Term [id number] Vaginal David Calculation Initial David Date Initial [...] Domestic Partner Domestic Partner Phone Father Name Leave Manager Status 03/28/20 22 1 CLOSED Fetus Data First Name Last Name Admitted to NICU Weight (g) Sex Living Outcome Pediatric Complications Fetus ID Race Codes Race Delivery Type F Full Term [id number] Vaginal David Calculation Initial David Date Initial [...]
--- OUTSIDE RECORDS SUMMARY | 2024-10-15 05:10 | XMS_ITS | Clinical Summary ---
Author Organization [facility] Address [address] [place] [address] Phone Care Team Providers Care Pressroom Worker Name Role Phone Unavailable Unavailable Unavailable Reason for Visit and Chief Complaint BEHAVIORAL HEALTH INTEGRATION ESTABLISHED Plan of Treatment No Plan of Treatment Recorded Assessments Includes: Assessments from this encounter Findings - Adjustment disorder - Last Documented On 11/28/2023 11:27AM ; [facility] Medical Equipment - Implanted Devices [...] Provider Service Location Service Date CLINIC VISIT [facility] (CLINICAL FUR DRY CLEANER) T1040 Adjustment disorder, unspecified CHAD BENEDICTW [facility]- 11/28/2023 Last Documented On 4 2:33PM ; [facility] PSYCHIATRIC DIAGNOSTIC EVALUATION (CLINICAL FUR DRY CLEANER) [address] Adjustment disorder, unspecified CHAD URIBE LCSW [facility]- 11/28/2023 Last Documented On 4 2:33PM ; [facility] Medical History Includes: Medical History addressed during this encounter No Medical History Recorded Family History Includes: Family History addressed during this encounter Description Last Updated Mother's side: anxietyFather 's side: anxiety, depression, PTSD, BPD, substance abuse 11/28/2023 Last Documented On 4 11:04AM ; [facility] Review of Systems Includes: Review [...] Diagnosis BEHAVIORAL HEALTH INTEGRATION ESTABLISHED CHAD URIBE PROOFER APPRENTICE [facility]- 11/28/19 24 10:42AM 11:28AM Adjustment Disorder Insurance Includes: Active Insurance Policies Plan Name Member ID Group # Subscriber Relationship Effect tatiana Dates 1 - [facility] [id number] ARACELIS HAMEED Self Clinical Notes Includes: Clinical Notes from this encounter * Progress note Date Encounter Last Documented by 11/28/2023 BEHAVIORAL HEALTH IN TEGRATION ESTABLISHED Last documented on 11/28/2023; 11:27 AM, CHAD URIBE [facility]; [facility] Reason For Visit Initial Assessment Assessment - Adjustment disorder Physical Findings Psychiatric: Psychiatric: Value PHQ9 score: 1 - PHQ9 score: Psychiatric: Value CLIFF 7 score: 3 - CLIFF 7 score: Physician's Services: - Screening for adult depression: impression and score [place]-Suicide Severity Rating Scale Score: 0 Jonathan Wallace [...] cats, 1 dog, Milady User Defined 18 Moravian User Defined 14 Client shared goals for therapy include: 1) live a more peaceful life 2) process trauma and core beliefs Bottom of Document Time Start: 10:45 a.m. Time End: 11:24 a.m. Next Appt for: 12/22 at 3:30 p.m.
--- OUTSIDE RECORDS SUMMARY | 2024-10-15 05:10 | XMS_ITS ---
Author Organization [facility] Address [address] [place] [address] Phone Care Team Providers Care Zinc Plate Grainer Name Role Phone Unavailable Unavailable Unavailable Plan of Treatment No Plan of Treatment Recorded Assessments Includes: Assessments for all patient encounters Findings Encounter Date Adjustment disorder BEHAVIORAL HEALTH IN TEGRATION ESTABLISHED with CHAD URIBE [facility] 11/28/2023 Last Documented On 4 11:27AM ; [facility] Medical Equipment - Implanted Devices Includes: Current and historical Devices No Medical Equipment Recorded Medications Administered Includes: Administered Medications in patient's chart No Administered Medications Recorded Results Includes: Results from 10/16/2023 through 10/15/2024 No Results Recorded For Specified Dates History of Present Illness History of Present Illness not supported for this document type No History of Present Illness Recorded Social History No Social History Recorded - Smoking Status Unknown Procedures and Surgical History Includes: Procedures from 10/16/2023 through 10/15/2024 Procedures Code Diagnosis Performing Provider Service Location Service Date CLINIC VISIT [facility] (CLINICAL MILK RECEIVER) T1040 Adjustment disorder, unspecified CHAD D RONY [facility] 11/28/2023 Last Documented On 4 2:33PM ; [facility] PSYCHIATRIC DIAGNOSTIC EVALUATION (CLINICAL MILK RECEIVER) [address] Adjustment disorder, unspecified CHAD D RONY [facility] 11/28/2023 Last Documented On 4 2:33PM ; [facility] Medical History Includes: Medical History [...] Physical Exam Recorded Encounters Includes: Encounters from 10/16/2023 through 10/15/2024 Encounter Provider Location Date Check-In Time Check-Out Time Diagnosis BEHAVIORAL HEALTH INTEGRATION ESTABLISHED CHAD URIBE PIPE THREADING 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 [facility] 11/28/19 24 10:42AM 11:28AM Adjustment Disorder Insurance Includes: Active Insurance Policies Plan Name Member ID Group # Subscriber Relationship Effect tatiana Dates 1 - [facility] [id number] ARACELIS HAMEED Self Clinical Notes Includes: Signed Clinical Notes starting from 07/06/2022 * Progress note Date Encounter Last Documented by 11/28/2023 BEHAVIORAL HEALTH IN TEGRATION ESTABLISHED Last documented on 11/28/2023; 11:27 AM, CHAD URIBE LCSW; [facility] Reason For Visit Initial Assessment Assessment - Adjustment disorder Physical Findings Psychiatric: Psychiatric: Value PHQ9 score: 1 - PHQ9 score: Psychiatric: Value CLIFF 7 score: 3 - CLIFF 7 score: Physician's Services: - Screening for adult depression: impression and score [place]-Suicide Severity Rating Scale Score: 0 Jonathan aWllace Safety Plan Completed: Yes No User Defined [...] a teenager My parents worked at a [employer]'s home, while I stayed home alone miscarriage [...] cats, 1 dog, Milady User Defined 18 Yazidism User Defined 14 Client shared goals for therapy include: 1) live a more peaceful life 2) process trauma and core beliefs Bottom of Document Time Start: 10:45 a.m. Time End: 11:24 a.m. Next Appt for: 12/22 at 3:30 p.m.
--- OUTSIDE RECORDS SUMMARY | 2024-10-15 05:10 | XMS_ITS ---
Care Plan - [facility] Created on: October 15, 2024 ARACELIS HAMEED : 1995 Sex: Female Author Organization [facility] Address [address] [place] [address] Phone Care Team Providers Care Ic Designer Gate Arrays Name Role Phone Unavailable Unavailable Unavailable
--- OUTSIDE RECORDS SUMMARY | 2024-10-15 05:10 | XMS_ITS | Continuity of Care Document ---
Author Organization [facility] Address [address] [address] Phone Care Team Providers Care Engraving Supervisor Name Role Phone Unavailable Unavailable Unavailable Allergies, [...] Diagnoses Date Provider Providers Copied on Encounter [facility] on, [address] [place] [address], [id number] , [place] tel:[phone] [facility] [facility] No Information 0 No Information [facility] on, [address] [place] [address], [id number] , tel:[phone] [facility] [place] No Information 0 No Information OFFICE/OUTPA TIENT VISIT, EST [facility] on, [address] [place] [address], [id number] , [place] tel:[phone] [facility] [place] Thyroid problems (chief complaint) Body mass index (BMI) 26.0-26.9, adultHypothyroid ism, unspecifiedFatig ueAnemiaAbnormal weight gain 0 No Information OFFICE/OUTPA TIENT VISIT, EST [facility] on, [address] [place] [address], [id number] , [place] tel:[phone] [facility] Cold symptoms (chief complaint) ChillsAcute nasopharyngitis [common cold]Cough 201 9 No Information Referring Provider: Leyla Li, [address] [place], [place] [id number] [facility] [place], [address] . tel:[phone] OFFICE/OUTPA TIENT VISIT, EST [facility] on, [address] [place] [address], [id number] , [place] tel:[phone] [facility] [place] back pain (chief complaint)T hyroid problems (chief complaint) Body mass index (BMI) 25.0-25.9, adultHypothyroid ismBack pain Feb-3 No Information Referring Provider: [facility] N, [address] [place] [address], [id number] . tel:[phone] OFFICE/OUTPA TIENT VISIT, [facility] on, [address] [place] [address], [id number] , tel:[phone] [facility] [facility] Chest discomfort (chief complaint)R efrain (chief complaint)T hyroid problems (chief complaint) Body mass index (BMI) 27.0-27.9, adultAnterior chest-wall painHypothyroidi smFollicular disorder No Information Referring Provider: [facility], [address] [place] [address], [id number] . tel:[phone] OFFICE/OUTPA TIENT VISIT, [facility] on, [address] [place] [address], [id number] , tel:[phone] [facility] [facility] est a pcp (chief complaint)T hyroid problems (chief complaint) Body mass index (BMI) 28.0-28.9, adultHypothyroid ismAbnormal weight gainEncounter for immunizationDiet yaquelin counseling No Information Referring Provider: [facility], [address] [place] [address], [id number] . tel:[phone] Family History Family Member Type Diagnosis Age At Onset Problem (finding) Family history of hyper tension Immunizations Vaccine Date Status Comments tetanus toxoid, reduced diph theria toxoid, and acellular pertussis vaccine, adsorbed administered Source: Other Provid er Payers Payer name Insurance type Covered republican ID Authoriza tion(s) No Information Social History [...] female. Additional information: Reports TSH 8.58 at [facility] last week. Will request records. est a pcp The symptoms are reported as being mild. The symptoms occur daily. She states the symptoms are acute. Here to establish care. Denies previous PCP.Sees [facility] for [facility] lining [facility] care. Functional Status Date Functional Assessmen t [...]
[2024-10-15 05:52] LABS: Basophils Absolute Auto 0.1 K/mm3 (0.0-0.1); Basophils Percent Auto 0.6 % (0.2-1.2); Eosinophils Absolute Auto 0.4 K/mm3 (0-0.3); Eosinophils Percent Auto 3.3 % (0-4.4); Hematocrit 35.3 % (37.0-47.0); Immature Granulocyte Absolute 0.04 K/mm3 (0.00-0.031); Immature Granulocyte Percent A 0.4 % (0-0.5); Lymphocytes Absolute Auto 2.23 K/mm3 (0.9-3.2); Mean Corpuscular HGB Conc 31.2 g/dl (32-36); Mean Corpuscular Hemoglobin 29.2 pg (26-34); Mean Corpuscular Volume 93.6 fl (80-100); Mean Platelet Volume 10.5 fl (7.4-10.4); Monocytes Absolute Auto 0.8 K/mm3 (0.1-0.6); Monocytes Percent Auto 7.2 % (2.6-8.5); Neutrophils Absolute Auto 7.2 K/mm3 (1.3-6.7); Neutrophils Percent Auto 67.5 % (45.5-73.1); Platelet Count Result 194 k/mm3 (150-375); Red Blood Count 3.77 M/mm3 (4.2-5.4); Red Cell Distribution Width 13.6 % (11.5-14.5); White Blood Count 10.6 K/mm3 (4.5-10.0)
[2024-10-15] MEDS: LACTATED RINGERS 1,000 ML 125 ML IV CONT (06:33)
[2024-10-15] MEDS: OXYTOCIN 30 UNITS/NS 500 ML 30 UNITS/500 ML BAG IV CONT (06:35)
--- NOTE | 2024-10-15 06:37 | LDADM ---
This patient, Fabi Jones, was admitted to Labor/Delivery/Recovery 106 on 10/15/24 at 05:04. Plans for labor, pain management and were discussed with patient. Patient/family oriented to hospital policies and general routines including ID bracelet, bed and alarms, visiting hours, pain management, procedures, bathroom and other care routines, personal items, smoking policy, room service/diet and guest tray routines, security routines, and visiting hours. Patient/Family are encouraged to report perceived risks to care and to ask questions if they do not understand what they are told or what they should do. See [facility] for further documentation.
[2024-10-15 06:40] LABS: Syphilis IgG/IgM Antibody Negative (Negative)
[2024-10-15 06:43] LABS: HIV 1/2 Ab P24 Ag Result Negative (Negative)
--- NOTE | 2024-10-15 07:49 | WPDOBADMIT ---
Obstetrics - Admit Note Admission Note: record reviewed. No pertinent additions to the history and/or any subsequent changes in the physical findings that are not consistent with the expected course of the were found. Additions to the history and/or subsequent changes in the physical findings follow. Here for MIL. cervix 250/-2 AROM with clear fluid. FHTs reactive
[2024-10-15] MEDS: LACTATED RINGERS 1,000 ML 999 ML IV CONT (10:21)
--- NOTE | 2024-10-15 13:33 | WPDANESEPP ---
Anes - Eval Pre Procedure Procedure: Labor epidural Date/Time: 10/15/24 13:33 Surgeon: Sam Preop Diagnosis: Pain during labor Pre Op Diagnosis: IOL Patient Data Age: 29 Gender: F Height: 1.6 m Weight: 83.1 kg Last Vital Signs Temp 37.1 C 10/15/24 12:23 Pulse 81 10/15/24 13:30 BP 126/86 10/15/24 13:30 Pulse Ox 100 10/15/24 13:30 Allergies Allergy/AdvReac Type Severity Reaction Status Date / Time Penicillins Allergy Hives Verified 09/25/24 11:13 Home Medications ?Medication ?Instructions ?Recorded ?Confirmed ?Type cholecalciferol (vitamin D3) 1,250 1,250 mcg PO WEEKLY 09/19/23 10/15/24 History mcg (50,000 unit) tablet levothyroxine 88 mcg tablet 88 mcg PO DAILY 09/19/23 10/15/24 History vit no.133-ferrous 1 tablet PO DAILY 09/19/23 10/15/24 History fumarate 28 mg-folic acid 800 mcg tablet () fluoxetine 20 mg capsule 20 mg PO DAILY 07/28/24 10/15/24 History Laboratory Tests 10/15/24 05:26 WBC 10.6 H K/mm3 (4.5-10.0) RBC 3.77 L M/mm3 (4.2-5.4) Hgb 11.0 L g/dL (12.0-15.0) Hct 35.3 L % (37.0-47.0) MCV 93.6 fl (80-100) MCH 29.2 pg (26-34) MCHC 31.2 L g/dl (32-36) RDW 13.6 % (11.5-14.5) Plt Count 194 k/mm3 (150-375) MPV 10.5 H fl (7.4-10.4) Immature Gran % (Auto) 0.4 % (0-0.5) Neut % (Auto) 67.5 % (45.5-73.1) Lymph % (Auto) 21.0 % (18.3-44.2) Runnels % (Auto) 7.2 % (2.6-8.5) Eos % (Auto) 3.3 % (0-4.4) Baso % (Auto) 0.6 % (0.2-1.2) Lymph # (Auto) 2.23 K/mm3 (0.9-3.2) Runnels # (Auto) 0.8 H K/mm3 (0.1-0.6) Eos # (Auto) 0.4 H K/mm3 (0-0.3) Baso # (Auto) 0.1 K/mm3 (0.0-0.1) Abs Immat Gran (auto) 0.04 H K/mm3 (0.00-0.031) Absolute Neuts (auto) 7.2 H K/mm3 (1.3-6.7) Absolute Nucleated RBC 0.000 K/mm3 (0.0-0.012) Nucleated RBC % 0.0 % (0.0-0.2) Syphilis IgG/IgM Ab Negative (Negative) HIV 1&2 Ab/P24 Ag 4thGn Negative (Negative) Blood Type A Positive Antibody Screen Negative Patient hx anesthesia problems: none Family hx anesthesia problems: none Results Review: All pre-operative results and documents have been reviewed as part of the pre-operative evaluation. [facility] Past Medical History Medical History (normal spontaneous vaginal delivery) x2 Hypothyroidism OCD (obsessive compulsive disorder) Surgical History Surgical History History of D&C Family History Family History Father Skin cancer Hypothyroidism Hypertension Grandparent Leukemia Grandparent Liver cancer Grandparent Hypothyroidism Social History Social History Smoking status: Never smoker Second hand tobacco smoke exposure: Yes Alcohol intake: never Substance use: never Substance use type: does not use Do You Feel Safe in your Home?: Yes Lack of Transportation: No Lack of Food: Never True Current Housing: I Have Housing Concerned About Future Housing: No Difficulty Paying Gas/Electric Bills: No Difficulty Paying for Meds: No Currently Unemployed: No Education: Bachelor's Degree Difficulty w/ Childcare or Family Care: No Living arrangements: with family Spiritual care concerns: No Exam Day of Procedure 10/15/24 13:33 Patient weight: overweight Heart: regular rate and rhythm Lungs: clear to auscultation Airway: Mallampati scale Neurological: alert and oriented
--- NOTE | 2024-10-15 13:47 | PM.OBPRVD ---
OB - Vaginal Delivery Note Procedure Delivery date: 10/15/24 Events: Elective Induction of Labor Induction method: AROM and Per Pitocin Protocol Delivery monitor: External FHT and External Uterine Route of delivery: Episiotomy description: None Laceration Description: Perineal - 2nd Degree Delivery repair: vicryl (3-0) Specimen: No Quantitative Blood Loss (ml): 50 Anesthesia type: Epidural Disposition: Floor Complications: No immediate complications [place] Baby Date of : 10/15/24 Gestational Age by Date: 39 gender: Male Weight (pounds): 6 Weight (ounces): 11 presentation: vertex position: Other (OP) Placenta delivery description: Spontaneous Cord Vessel Description: 3 Vessels and Delayed Cord Clamping score one minute: 8 score five minutes: 8
--- NOTE | 2024-10-15 13:48 | P.DS_ITS ---
DS: Admitting Diagnosis Discharge Date 10/16/24 Admitting Diagnosis IUP 39 wks for BROCK DS: Discharge Diagnosis Discharge Diagnosis (1) (normal spontaneous vaginal delivery): Code(s): O80 - Encounter for full-term uncomplicated delivery Status: Acute OB - DS: Summary OB Procedures : Ultrasound OB Procedures Intrapartum: Spontaneous Vag Delivery OB Procedures: : None Peripartum Data Infant Delivery Method: Natural Vaginal Laceration Description: Perineal - 2nd Degree Episiotomy description: None complications: none Status at Discharge Functional status at discharge: independent ambulation Overall status at discharge: patient is progressing back to baseline Time Spent with Patient Time attestation: Total time spent providing and/or coordinating discharge services: DS: Data Data Completed and Pending Labs on day of discharge: Labs from last 24 hours 10/15/24 05:26 WBC 10.6 H RBC 3.77 L Hgb 11.0 L Hct 35.3 L MCV 93.6 MCH 29.2 MCHC 31.2 L RDW 13.6 Plt Count 194 MPV 10.5 H Immature Gran % (Auto) 0.4 Neut % (Auto) 67.5 Lymph % (Auto) 21.0 Pender % (Auto) 7.2 Eos % (Auto) 3.3 Baso % (Auto) 0.6 Lymph # (Auto) 2.23 Pender # (Auto) 0.8 H Eos # (Auto) 0.4 H Baso # (Auto) 0.1 Abs Immat Gran (auto) 0.04 H Absolute Neuts (auto) 7.2 H Absolute Nucleated RBC 0.000 Nucleated RBC % 0.0 Syphilis IgG/IgM Ab Negative HIV 1&2 Ab/P24 Ag 4thGn Negative Blood Type A Positive Antibody Screen Negative Discharge Plan Discharge Attending physician on discharge: Елена Vargas Discharging Clinician: Елена Vargas Anticipated Discharge Date/Time: 10/17/24 13:49 Patient Disposition: Home Activity: may shower and pelvic rest Diet: regular Patient Instructions: Antibiotic Form Patient Language: Faroese Stand Alone Forms: General Discharge Information Follow-up/Referrals: Елена Vargas MD [Physician] - 6 Weeks Discharge Medications: Continued fluoxetine 20 mg capsule 20 mg PO DAILY levothyroxine 88 mcg Tablet 88 mcg PO DAILY cholecalciferol (vitamin D3) 1,250 mcg (50,000 unit) Tablet 1,250 mcg PO WEEKLY Patient Comments: takes on mondays Rx Instructions: TAKES ON FRIDAYS 28-800 mg-mcg Tablet 1 tablet PO DAILY Date of admission: 10/15/24 05:04 Primary Care Provider: Eva,Kaylin Admitting Provider: Елена Vargas Attending physician on admission: Елена Vargas Condition: Stable
[2024-10-15] MEDS: OXYTOCIN 30 UNITS/NS 500 ML 30 UNITS/500 ML BAG 125 UNITS IV CONT (14:07)
[2024-10-15] MEDS: IBUPROFEN 600 MG TABLET PO ×2 (15:12→20:57)
[2024-10-15] MEDS: WITCH HAZEL 40 PADS 1 PAD TOPICAL (15:12)
[2024-10-15] MEDS: BENZOCAINE 20% AER SPR (*SP) 56 GM CAN 1 SPRAY TOPICAL (15:12)
[2024-10-15] MEDS: ACETAMINOPHEN 325 MG TABLET 650 MG PO (20:57)
[2024-10-16] MEDS: IBUPROFEN 600 MG TABLET PO ×2 (03:08→09:27)
[2024-10-16 03:46] VITALS: BP 115/84; PULSE 70; RESP 16; TEMP 36.8; O2SAT 99
[2024-10-16 05:17] LABS: Hematocrit 33.5 % (37.0-47.0); Hemoglobin 10.5 g/dL (12.0-15.0)
[2024-10-16] MEDS: LEVOTHYROXINE SODIUM 88 MCG TABLET PO (06:49)
[2024-10-16 08:10] VITALS: BP 113/72; PULSE 69; RESP 18; TEMP 36.8; O2SAT 99
--- NOTE | 2024-10-16 09:24 | WPDANLDPN2 ---
Anes-Prog Note L&D Date/Time: 10/16/24 09:24 Comfortable throughout: labor and delivery Neuraxial method: epidural Epidural/Spinal procedure site: clean & non-tender Neuro status: Neuro function grossly intact. Cardiovascular status: normal Respiratory status: normal Airway patency: baseline Mental status: baseline Post-Op hydration status: normal Vital Signs: Last Vital Signs Temp 36.8 C 10/16/24 03:46 Pulse 70 10/16/24 03:46 Resp 16 10/16/24 03:46 BP 115/84 10/16/24 03:46 Pulse Ox 99 10/16/24 03:46 O2 Del Method Room Air 10/15/24 23:30 Pain score (VAS): 0/10 I/O: Intake & Output 10/15/24 10/16/24 10/16/24 23:59 07:59 15:59 Intake Total 800 Balance 800 Post-procedural complaints: none Patient feedback: Patient satisfied with anesthetic care.
--- NOTE | 2024-10-16 11:00 | PC.NURSE ---
Consulted with mother concerning needs and she shared her ability to independently latch infant optimally without pain. Mother is feeding appropriately for growth of and understands stimulating to eat if needed. She states that sleepiness has been the biggest obstacle so far and we discussed expected behavior. Recommended feeding at least 8 times every 24 hours. Reinforced understanding of milk production, transition of milk, signs of adequate intake, transition of stool, prevention/relief of engorgement, plugged ducts, mastitis, responsive watching for feeding cues, the different methods of stimulating infant to breastfeed 1-3 hours after the start of the last feeding, community resources, and when to call a provider using the resource of the feeding sheet along with the mom and baby guide. She has a breast pump at home and declines a referral to WIC. Mother voiced understanding of the information shared, is confident to continue effectively her infant at home, when to call for assistance, denies any additional assistance or education at this time. Reported to the Primary RN.
[2024-10-16 12:33] VITALS: BP 113/76; PULSE 75; RESP 16; TEMP 36.8; O2SAT 99
--- NOTE | 2024-10-16 12:54 | P.PNOB_ITS ---
OB - PN: Subj Subjective Date/time seen: 10/16/24 12:54 Patient comments: no complaints baby status: doing well OB - PN: Obj Data Labs 10/16/24 04:40 Labs: Laboratory Results - last 24 hr 10/16/24 04:40 Hgb 10.5 L Hct 33.5 L OB - PN A/P Plan day: 1 Plan: routine care, discharge home and follow up 6 weeks Time Spent With Patient Time: Total time spent is greater than 50% in coordination of care (as documented) at patient's floor/unit and/or counseling patient: Exam 2 : Bimanual exam- vagina & uterus: other (Uterus firm, nt @U)
[2024-10-19 11:20] VITALS: BP 103/80; PULSE 77; RESP 16; TEMP 36.4; O2SAT 99
== END 2024-10-16 17:43 | disposition home or self-care (01) | DRG 560 ==
LOC: ANHLDR 13:49 → ANHOB2 18:08
PROVIDERS: Admitting Provider Obstetrics & Gynecology Gynecology; PCP Registered Nurse; Visit Provider Obstetrics & Gynecology Gynecology
DX: O70.1 Second degree perineal laceration during delivery (principal); Z3A.39 39 weeks gestation of pregnancy; Z37.0 Single live birth
CPT/HCPCS: 36415; 85014; 85018; 85025; 86593; 86703; 86850; 86900; 86901; A9270; G0432; J2590; J2795; J7120